=== PATIENT | female | born 1940 | race Caucasian/White ===

== ENCOUNTER 2023-11-09 13:03 | Outpatient (AMB) | payer MEDICARE, MEDICAID, SELFPAY ==
--- NOTE | 2023-11-09 13:21 | A.OFFPC_ITS ---
Vital Signs 11/09/23 13:28 Height 5 ft 1.26 in Weight 138 lb 6 oz BMI 25.9 BP 130/66 Blood Pressure Location Lt brachial Position Sitting Respiration 16 Pulse 74 Pulse Source Palpation Intake Visit Reasons: Establish Care Intake Note: new patient , med refill levothyroxine Is last menstrual period known: No Post menopausal: Yes Patient : No Allergies Penicillins Adverse Reaction (Verified 11/09/23 13:23) Diarrhea Tobacco use date assessed: 11/09/23 Fall risk assessment: No Falls in past year Last assessed Fall Risk: 11/09/23 Dental Screening Dental Screen Date: 11/09/23 Did you have a dental visit in the last 12 months?: Yes Did you have a dental problem in the last 6 months where you did not have access to dental care?: No Was dental information given to patient?: Patient has dentist HPI HPI Comments History of Present Illness Details The patient is an 83 year old female with a past medical history of hypothyroid, anxiety, insomnia presenting to establish care Hypothyroid: stable on levothyroxine Anxiety: On xanax twice daily, olanzapine Reports few month history of muscle spasms, arms, low back and legs. ROS CONSTITUTIONAL: Denies weight loss, fever and chills. HEENT: Denies changes in vision and hearing. RESPIRATORY: Denies SOB and cough. CV: Denies palpitations and CP GI: Denies abdominal pain, nausea, vomiting and diarrhea. : Denies dysuria and urinary frequency. MSK: Denies new myalgia and joint pain. SKIN: Denies rash and pruritus. NEUROLOGICAL: Denies headache PSYCHIATRIC: Denies recent changes in mood. PHYSICAL EXAM: GENERAL: Alert and oriented x 3. NAD EYES: EOMI. Anicteric. HENT: Moist mucous membranes. No scleral icterus. No cervical lymphadenopathy. LUNGS: Clear to auscultation bilaterally. CARDIOVASCULAR: Regular rate and rhythm. No murmur. No JVD. ABDOMEN: Soft, non-tender +bs EXTREMITIES: No edema. Non-tender. SKIN: No rashes or lesions. Warm. NEUROLOGIC: No focal neurological deficits. CN II-XII grossly intact PSYCHIATRIC: Cooperative. Appropriate mood and affect [facility] Social History (Updated 11/09/23 @ 13:25 by Opal Madrid [facility]) Housing: House Patient Tobacco Use Status: Never used Tobacco e-Cigarette/Vaping Use: Never Used Second Hand Smoke Exposure: Yes (daughter) service: No Current occupational status: retired Current occupational exposures/hazards: No Cognitive needs: No Hearing needs: Yes Vision needs: Yes Questionnaire PHQ-9 Over the last 2 weeks, how often have you been bothered by any of the following problems? 1. Little interest or pleasure in doing things: more than half the days 2. Feeling down, depressed, or hopeless: more than half the days 3. Trouble falling or staying asleep, or sleeping too much: more than half the days 4. Feeling tired or having little energy: nearly every day 5. Poor appetite or overeating: not at all 6. Feeling bad about yourself - or that you are a failure or have let yourself or your family down: more than half the days 7. Trouble concentrating on things, such as reading the newspaper or watching television: several days 8. Moving or speaking so slowly that other people could have noticed. Or the opposite - being so fidgety or restless that you have been moving around a lot more than usual: not at all 9. Thoughts that you would be better off or of hurting yourself in some way: not at all Total score: 12 Depression Screening Interpretation: Positive Depression Screening Done: Yes 90579 - PHQ-9 Billing: Yes Source: Developed by Drs. Rajesh Gamble, Fabiola Ramirez, Neville Burnett and colleagues, with an educational jovana from [employer]. Thrive Questionnaire Date Thrive assessed: 11/09/23 I am a: Patient What is your living situation today?: I have a place to live, but I am worried about losing it in the future Within the past 12 months, did the food you bought not last and you didn't have the money to get more?: Never true Within the past 12 months, did you worry whether your food would run out before you got money to buy more?: Never true Do you have trouble paying for medicines?: No Do you have trouble getting transportation to medical appointments?: Yes Do you have trouble paying your heating and electricity bill?: No Do you have trouble taking care of your child, family member or friend?: No Do you have trouble with day-to-day activities such as bathing, preparing meals, shopping, managing finances, etc.?: No Are you currently unemployed and looking for a job?: No Are you interested in more education?: No Please select the resources that you would like help with: None Currently or been in a relationship where the following occur: No concerns reported THRIVE Score: 2 AUDIT C Alcohol Use Questionnaire (AUDIT-C) 1. How often do you have a drink containing alcohol?: Monthly or less 2. How many drinks containing alcohol do you have on a typical day when you are drinking?: 1 or 2 3. How often do you have six or more drinks on one occasion?: Weekly Total Score: 4 Score Reviewed/Action Taken: Yes VANESSA-7 AMB Questionnaire VANESSA-7 Date VANESSA - 7 assessed: 11/09/23 Feeling nervous, anxious, or on edge: 2 = More than half the days Not being able to stop or control worryin = Nearly every day Worrying too much about different things: 3 = Nearly every day Trouble relaxin = More than half the days Being so restless that it is hard to sit still: 2 = More than half the days Becoming easily annoyed or irritable: 1 = Several days Feeling afraid as if something awful might happen: 1 = Several days Total VANESSA-7 score (0-4 normal; 5-9 mild; 10-14 moderate; 15-21 severe): 14 Source: Developed by Drs. Rajesh Gamble, Fabiola Ramirez, Neville Burnett and colleagues, with an educational jovana from [employer]. VANESSA-7 Assessment Billing VANESSA-7 Assessment Tool: VANESSA-7 Assessment 76130 Physical exam (Primary Care) Vital Signs: Last Vital Signs Pulse 74 11/09/23 13:28 Resp 16 11/09/23 13:28 BP 130/66 11/09/23 13:28 BMI result Body Mass Index 25.9 Tobacco/Smoking Status: Tobacco use Status Tobacco use date assessed 11/09/23 11/09/23 13:26 Patient Tobacco Use Status Never used Tobacco 11/09/23 13:26 e-Cigarette/Vaping Use Never Used 11/09/23 13:26 PHQ-9: PHQ-9 Score PHQ-9: Total score 12 11/15/23 21:16 Depression Screening Interpretation: Positive Thrive Assessment: Date of Thrive Assessment Date Thrive assessed 11/09/23 11/09/23 14:27 Currently or been in a relationship where the following occur: No concerns reported Assessment and Plan Assessment & Plan (1) Fatigue: Code(s): R53.83 - Other fatigue Qualifiers: Fatigue type: other Qualified Code(s): R53.83 - Other fatigue (2) Hypothyroid: Code(s): E03.9 - Hypothyroidism, unspecified Qualifiers: 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 past medical, surgical, social history reviewed. Orders: Orders Vitamin B12 and Folate 11/09/23 R53.83 - Other fatigue IRON PROFILE 11/09/23 R53.83 - Other fatigue Magnesium 11/09/23 M79.10 - Myalgia, unspecified site TSH reflex Free T4 11/09/23 R53.83 - Other fatigue Complete Blood Count Auto Diff 11/09/23 R53.83 - Other fatigue Comprehensive Met. 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
[2023-11-09 13:28] VITALS: BP 130/66; PULSE 74; RESP 16; BMI 25.9
== END 2023-11-09 13:56 | disposition home or self-care (01) ==
PROVIDERS: Visit Provider Internal Medicine
DX: R53.83 Other fatigue (principal); E06.3 Autoimmune thyroiditis; F41.9 Anxiety disorder, unspecified; Z76.89 Persons encountering health services in other specified circumstances
CPT/HCPCS: 99204

== ENCOUNTER 2023-11-09 14:01 | Outpatient (REF) | payer MEDICARE, SELFPAY ==
[2023-11-09 18:24] LABS: Alanine Aminotransferase 32 U/L (0-31); Albumin Level 4.6 g/dL (3.5-5.0); Alkaline Phosphatase 93 U/L (39-117); Anion Gap 15 (12-20); Aspartate Amino Transferase 28 U/L (5-31); Bilirubin Total 0.7 mg/dL (0.0-1.0); Blood Urea Nitrogen 13 mg/dL (9-16); Calcium 9.8 mg/dL (8.4-10.2); Carbon Dioxide 25 mmol/L (22-29); Chloride 103 mmol/L (96-108); Estimated Glomerular Filt Rate 59; Glucose Random 90 mg/dL (60-115); Iron 97 mcg/dL (30-160); Magnesium 2.4 mg/dL (1.6-2.6); Percent Iron Saturation 32 % (15-50); Potassium 4.5 mmol/L (3.3-5.1); Sodium 138 mmol/L (135-145); Total Iron Binding Capacity 302 mcg/dL (228-428); Total Protein 8.1 g/dL (6.5-8.0); Unsaturated Iron Binding 205 ug/dL
[2023-11-09 18:37] LABS: TSH reflex Free T4 6.01 uIU/mL (0.32-4.0)
[2023-11-09 19:44] LABS: Free T4 (Free Thyroxine) 0.92 ng/dL (0.71-1.85)
[2023-11-09 20:26] LABS: Folate 12.6 ng/mL (> or = 4.0); Vitamin B12 > 2000 pg/mL (200-900)
== END 2023-11-09 14:02 | disposition home or self-care (01) ==
LOC: HO.WFDLDS 14:01
PROVIDERS: Visit Provider Internal Medicine
DX: R53.83 Other fatigue (principal); M79.10 Myalgia, unspecified site
CPT/HCPCS: 36415; 80053; 82607; 82746; 83540; 83735; 84439; 84443

== ENCOUNTER 2024-02-02 15:43 | Outpatient (AMB) | payer MEDICARE, MEDICAID, SELFPAY ==
--- NOTE | 2024-02-02 15:21 | MHC.PC.OV ---
Vital Signs 02/02/24 15:54 Height 5 ft 1.26 in Weight 137 lb 2 oz BMI 25.7 BP 108/64 Blood Pressure Location Lt brachial Pulse 75 Pulse Source Pulse Oximeter Pulse Oximetry (%) 98 Oxygen Delivery Method Room Air Intake Visit Reasons: Establish Care Intake Note: Physical Aviation Consultant Required: No Allergies Penicillins Adverse Reaction (Verified 02/02/24 15:24) Diarrhea Tobacco use date assessed: 11/09/23 Dental Screening Dental Screen Date: 11/09/23 HPI HPI Comments History of Present Illness Details The patient is an 83 year old female with a past medical history of hypothyroid, anxiety, insomnia presenting for AWV Care team reviewed PMSHx reviewed Medications reconciled Memory: 06/13 recall. Depression screen negative HRA reviewed. No problems identified. Independent ADLS Hypothyroid: stable on levothyroxine Anxiety: On xanax twice daily, olanzapine. Following with Reports few month history of muscle spasms, arms, low back and legs. Frequent neck, shoulder pain ROS see HPI PHYSICAL EXAM: GENERAL: Alert and oriented x 3. NAD EYES: EOMI. Anicteric. HENT: Moist mucous membranes. No scleral icterus. No cervical lymphadenopathy. LUNGS: Clear to auscultation bilaterally. CARDIOVASCULAR: Regular rate and rhythm. No murmur. No JVD. ABDOMEN: Soft, non-tender +bs EXTREMITIES: No edema. Non-tender. SKIN: No rashes or lesions. Warm. NEUROLOGIC: No focal neurological deficits. CN II-XII grossly intact PSYCHIATRIC: Cooperative. Appropriate mood and affect [facility] Medical History Shingles Depression Imbalance Incontinence Thyroid disease Sinusitis Family History Mother Thyroid disorder Social History Housing: House Patient Tobacco Use Status: Never used Tobacco e-Cigarette/Vaping Use: Never Used Second Hand Smoke Exposure: Yes (daughter) service: No Current occupational status: retired Current occupational exposures/hazards: No Cognitive needs: No Hearing needs: Yes Vision needs: Yes Questionnaire Thrive Questionnaire Date Thrive assessed: 11/09/23 VANESSA-7 AMB Questionnaire VANESSA-7 Date VANESSA - 7 assessed: 11/09/23 Source: Developed by Drs. Rajesh Gamble, Fabiola Ramirez, Neville Burnett and colleagues, with an educational jovana from [employer]. Physical exam (Primary Care) Vital Signs: Last Vital Signs Pulse 75 02/02/24 15:54 BP 108/64 02/02/24 15:54 Pulse Ox 98 02/02/24 15:54 Oxygen Delivery Method Room Air 02/02/24 15:54 BMI result Body Mass Index 25.7 Tobacco/Smoking Status: Tobacco use Status Tobacco use date assessed 11/09/23 02/02/24 15:23 Patient Tobacco Use Status Never used Tobacco 02/02/24 15:23 e-Cigarette/Vaping Use Never Used 02/02/24 15:23 Thrive Assessment: Date of Thrive Assessment Date Thrive assessed 11/09/23 02/02/24 15:23 Coding Level of Care Code Est Pt Level 4 (11265) Diagnoses Polyarthralgia M25.50 Polymyalgia M35.3 Other fatigue R53.83 Fatigue type: other Encounter for subsequent annual wellness visit (AWV) in Medicare patient Z00.00 Assessment & Plan Assessment & Plan (1) Polyarthralgia: Code(s): M25.50 - Pain in unspecified joint Category: Medical Plan: referral to rheumatology (2) Polymyalgia: Code(s): M35.3 - Polymyalgia rheumatica Category: Medical Plan: see above. Trial baclofen prn (3) Fatigue: Code(s): R53.83 - Other fatigue Category: Medical Qualifiers: Fatigue type: other Qualified Code(s): R53.83 - Other fatigue Plan: Labs ordered (4) Encounter for subsequent annual wellness visit (AWV) in Medicare patient: Code(s): Z00.00 - Encounter for general adult medical examination without abnormal findings Category: Medical Plan: see HPI Orders: Orders TSH reflex Free T4 12 Weeks E06.3 - Autoimmune thyroiditis Prothrombin Time INR 02/02/24 D69.2 - Other nonthrombocytopenic purpura Partial Thromboplastin Time 02/02/24 D69.2 - Other nonthrombocytopenic purpura IRON PROFILE 02/02/24 R53.83 - Other fatigue Complete Blood Count Auto Diff 02/02/24 D69.2 - Other nonthrombocytopenic purpura Referrals Rheumatology Referral M25.50 - Pain in unspecified joint, M35.3 - Polymyalgia rheumatica Medications: New levothyroxine 100 mcg PO DAILY 90 tabs 3RF Discontinued levothyroxine Discontinued Reason: Doctor's Order 88 mcg PO DAILY 90 tabs 3RF
[2024-02-02 15:54] VITALS: BP 108/64; PULSE 75; O2SAT 98; BMI 25.7
== END 2024-02-02 16:40 | disposition home or self-care (01) ==
PROVIDERS: Visit Provider Internal Medicine
DX: M25.50 Pain in unspecified joint (principal); M35.3 Polymyalgia rheumatica; R53.83 Other fatigue; Z00.00 Encounter for general adult medical examination without abnormal findings

== ENCOUNTER → 2024-02-02 15:43 | Outpatient (BNVA) | payer MEDICARE, MEDICAID, SELFPAY | PROVIDERS: Visit Provider Internal Medicine | DX: Z00.00 Encounter for general adult medical examination without abnormal findings (principal); M25.50 Pain in unspecified joint; M35.3 Polymyalgia rheumatica; R53.83 Other fatigue; E03.9 Hypothyroidism, unspecified; F41.9 Anxiety disorder, unspecified; D69.2 Other nonthrombocytopenic purpura; Z79.899 Other long term (current) drug therapy | CPT/HCPCS: 99212 ==

== ENCOUNTER 2024-05-22 10:25 | Emergency (ER) | payer MEDICARE, MEDICAID, SELFPAY ==
--- NOTE | ~2024-05-22 | CT_ITS ---
CLINICAL HISTORY: upper abdominal pain CT abdomen and pelvis with contrast Comparison: None Findings: No consolidation at the lung bases. Unremarkable gallbladder and bladder. Left renal cyst. Bilateral renal subcentimeter low attenuating lesions which are too small to characterize. 1.4 cm calcification in the left adnexa could be within the left ovary. The other solid organs are unremarkable. No bowel wall thickening or dilation. A normal appendix is identified. Colonic diverticulosis. No aneurysm. Severe calcified atherosclerotic disease. No lymphadenopathy. No ascites. No acute osseous abnormality. Severe degenerative change of the hips. Right hip osteonecrosis with mild cortical collapse could be considered. Impression: No acute findings. This document has been electronically signed by: Vianey Fonseca MD on 05/22/2024 17:27:24
[2024-05-22 10:28] VITALS: BP 149/80; PULSE 92; RESP 18; TEMP 36.4; O2SAT 99; BMI 24.2
[2024-05-22 11:23] LABS: MANUAL DIFF FLAG NO
[2024-05-22 11:28] LABS: Basophils Percent Auto 0.4 % (0-2); Eosinophils Percent Auto 0.3 % (0-4); Hematocrit 42.1 % (37.0-47.0); Hemoglobin 14.3 g/dl (12.0-16.0); Imm Gran Abs Auto 0.01 X10*3/uL (0.00-0.03); Imm Gran Pct Auto 0.1 % (0.0-0.4); Lymphocytes Absolute Auto 1.6 X10*3/uL (1.2-4.9); Lymphocytes Percent Auto 23.7 % (20-40); Mean Corpuscular Hemoglobin 31.4 pg (27.0-33.0); Mean Corpuscular Volume 92.3 fL (80.0-98.0); Mean Platelet Volume 10.1 fL (9.4-12.3); Monocytes Absolute Auto 0.7 X10*3/uL (0.1-1.2); Monocytes Percent Auto 11.1 % (2-11); Neutrophils Absolute Auto 4.3 x10*3/uL (2.0-8.3); Neutrophils Percent Auto 64.4 % (45-73); Platelet Count 330 X10*3/uL (160-400); Red Blood Count 4.56 X10*6/uL (4.20-5.50); Red Cell Distribution Width 13.8 % (11.0-16.0); White Blood Count 6.7 X10*3/uL (4.8-10.8)
[2024-05-22 11:40] LABS: Alanine Aminotransferase 21 U/L (0-31); Albumin Level 4.4 g/dL (3.5-5.0); Alkaline Phosphatase 72 U/L (39-117); Anion Gap 14 (12-20); Aspartate Amino Transferase 23 U/L (5-31); Bilirubin Total 0.8 mg/dL (0.0-1.0); Blood Urea Nitrogen 10 mg/dL (9-16); Calcium 9.5 mg/dL (8.4-10.2); Carbon Dioxide 21 mmol/L (22-29); Chloride 104 mmol/L (96-108); Creatinine Clr Calc Pharmacy 41.3; Estimated Glomerular Filt Rate > 60; Glucose Random 104 mg/dL (60-115); Magnesium 2.1 mg/dL (1.6-2.6); Potassium 4.3 mmol/L (3.3-5.1); Sodium 135 mmol/L (135-145); Total Protein 7.9 g/dL (6.5-8.0)
--- NOTE | 2024-05-22 11:47 | ED.ABDPAIN ---
HPI - Abdominal Pain General Chief Complaint: Abdominal Pain Stated Complaint: abdominal pain Time Seen by Provider: 05/22/24 11:30 Source: patient Mode of arrival: ambulatory Limitations: no limitations History of Present Illness HPI narrative: This is 84 years old patient presented to the emergency department with a chief complaint of epigastric abdominal pain for about 3 or 4 weeks. She reports poor p.o. intake no vomiting or diarrhea. She has a history of gastritis, no prior abdominal surgery MD elicited complaint: abdominal pain Pertinent past history: gastritis Onset (ago): week(s) (4) Pain Consistency: constant Location: epigastric Severity: mild Quality: cramping Radiation: epigastric Migration to: no migration Exacerbating factors: nothing Relieving factors: nothing Related Data Home Medications ?Medication ?Instructions ?Recorded ?Confirmed olanzapine 2.5 mg tablet 2.5 mg PO DAILY 02/02/24 Previous Rx's ?Medication ?Instructions ?Recorded baclofen 5 mg tablet 5 mg PO BID 90 days #180 tabs 11/09/23 olanzapine 5 mg tablet 5 mg PO BEDTIME 90 days #90 tabs 11/09/23 alprazolam 0.5 mg tablet 0.5 mg PO TID 30 days #90 tabs 01/05/24 levothyroxine 75 mcg tablet 75 mcg PO DAILY #90 tabs 05/06/24 omeprazole 10 mg capsule,delayed 10 mg PO DAILY #30 caps 05/22/24 release Allergies Allergy/AdvReac Type Severity Reaction Status Date / Time Penicillins AdvReac Diarrhea Verified 05/22/24 10:34 Review of Systems Constitutional: Reports no additional constitutional complaints Reports system reviewed and no additional complaints, except as documented Musculoskeletal: Reports no additional musculoskeletal complaints [facility] Past Medical History Attestation statement: The following information was validated with the patient. [facility] Narrative: Gastritis/anxiety Medical History Shingles Depression Imbalance Incontinence Thyroid disease Sinusitis Family History Family History Mother Thyroid disorder Social History Social History Housing: House Patient Tobacco Use Status: Never used Tobacco e-Cigarette/Vaping Use: Never Used Second Hand Smoke Exposure: Yes (daughter) service: No Current occupational status: retired Current occupational exposures/hazards: No Cognitive needs: No Hearing needs: Yes Vision needs: Yes Physical Exam ED Vital Signs: Vital Signs - 24 hr 05/22/24 10:28 05/22/24 15:18 05/22/24 17:55 Temperature 97.6 F 97.6 F 97.6 F Pulse Rate 92 77 77 Respiratory Rate 18 16 16 Blood Pressure 149/80 H 137/72 137/72 Pulse Oximetry 99 97 97 Oxygen Delivery Method Room Air Room Air Room Air BMI result Body Mass Index 24.2 No acute distress Const General: cooperative, healthy appearing, comfortable and no acute distress Nutritional Appearance: average body habitus Orientation/consciousness: patient oriented x3 Limitations: no limitations HENMT Head: Yes normal to inspection Face and sinus: Yes normal facial exam Neck Neck: Yes normal visual inspection and Yes full ROM Chest Chest palpation & inspection: normal inspection of the chest Resp Effort & Inspection: normal respiratory effort Cardio Jugular venous distension: no JVD Rate: regular rate Rhythm: regular rhythm GI Inspection: Yes normal to inspection Palpation (GI): Soft to palpation General: Yes no CVA tenderness Back/Spine/Pelvis Back: no CVA tenderness Skin General skin exam: no rashes or lesions noted, elasticity normal and turgor normal Lesions: no lesions Rashes: no rashes Trauma: no lacerations or abrasions Wounds: no wounds Neuro General: patient oriented x3 Course Reevaluation(s) Reevaluation #1: Remained stable at this time we still waiting for the report the CT scan of the abdomen and pelvis, I just spoke with the light rail signal technician to alert the radiologist for the delayed on the CT report Time: 16:38 Reevaluation #2: CT resulted not acute disease anticipate discharge Time: 17:44 Medical Decision Making Medical Decision Making [facility] Narrative: Patient presented with upper abdominal pain for about 4 weeks no vomiting we will obtain labs Differential Diagnosis Differential Diagnoses: The differential diagnosis associated with the presentation includes Gastritis/pancreatitis she had/biliary colic Lab Data 05/22/24 11:20 05/22/24 11:20 Labs: Lab Results 05/22/24 05/22/24 Range/Units 11:20 16:43 WBC 6.7 (4.8-10.8) X10*3/uL RBC 4.56 (4.20-5.50) X10*6/uL Hgb 14.3 (12.0-16.0) g/dl Hct 42.1 (37.0-47.0) % MCV 92.3 (80.0-98.0) fL MCH 31.4 (27.0-33.0) pg MCHC 34.0 (31.0-35.0) g/dl RDW 13.8 (11.0-16.0) % Plt Count 330 (160-400) X10*3/uL MPV 10.1 (9.4-12.3) fL Immature Gran % (Auto) 0.1 (0.0-0.4) % Neut % (Auto) 64.4 (45-73) % Lymph % (Auto) 23.7 (20-40) % Norman % (Auto) 11.1 H (2-11) % Eos % (Auto) 0.3 (0-4) % Baso % (Auto) 0.4 (0-2) % Lymph # (Auto) 1.6 (1.2-4.9) X10*3/uL Norman # (Auto) 0.7 (0.1-1.2) X10*3/uL Eos # (Auto) 0.0 (0.0-0.4) X10*3/uL Baso # (Auto) 0.0 (0.0-0.2) X10*3/uL Abs Immat Gran (auto) 0.01 (0.00-0.03) X10*3/uL Absolute Neuts (auto) 4.3 (2.0-8.3) x10*3/uL Absolute Nucleated RBC 0.000 (0.0-0.012) X10*3/uL Nucleated RBC % (auto) 0.0 (0.0-0.2) /100WBC Sodium 135 (135-145) mmol/L Potassium 4.3 (3.3-5.1) mmol/L Chloride 104 (96-108) mmol/L Carbon Dioxide 21 L (22-29) mmol/L Anion Gap 14 (12-20) BUN 10 (9-16) mg/dL Creatinine 0.86 (0.5-1.4) mg/dL Estim Creat Clear Calc 41.3 Estimated GFR > 60 Random Glucose 104 (60-115) mg/dL Calcium 9.5 (8.4-10.2) mg/dL Magnesium 2.1 (1.6-2.6) mg/dL Total Bilirubin 0.8 (0.0-1.0) mg/dL AST 23 (5-31) U/L ALT 21 (0-31) U/L Alkaline Phosphatase 72 (39-117) U/L Total Protein 7.9 (6.5-8.0) g/dL Albumin 4.4 (3.5-5.0) g/dL Lipase 21 (8-78) U/L Urine Color Yellow Urine Appearance Clear Urine pH 6.0 (5.0-9.0) Ur Specific Doyle >= 1.030 H (1.005-1.025) Urine Protein Negative (Neg-Trace) mg/dL Urine Glucose (UA) Negative (Negative) mg/dL Urine Ketones Negative (Negative) mg/dL Urine Blood Negative (Negative) Urine Nitrite Negative (Negative) Ur Leukocyte Esterase Negative (Negative) Influenza Type A (PCR) NEGATIVE (Negative) Influenza Type B (PCR) NEGATIVE (Negative) RSV RNA Qual (PCR) NEGATIVE (Negative) SARS-CoV-2 RNA (RT-PCR) NEGATIVE (Negative) Medications Administered Discontinued Medications Generic Name Dose Route Start Last Admin Trade Name Freq PRN Reason Stop Dose Admin Alprazolam 0.5 mg 05/22/24 11:46 05/22/24 12:27 Alprazolam 0.5 Mg Tablet PO 05/22/24 11:47 0.5 mg ONCE ONE Administration Sodium Chloride 1,000 mls @ 999 mls/hr 05/22/24 12:00 05/22/24 13:46 Ns IVCONT 05/22/24 13:00 Infused .Q1H1M BECCA Infusion Acetaminophen 1,000 mg in 100 mls @ 400 mls/hr 05/22/24 16:37 05/22/24 16:58 Ofirmev IV 05/22/24 16:51 Infused ONCE ONE Infusion Iohexol 85 ml 05/22/24 13:08 05/22/24 13:08 Iohexol 350 Mg/Ml 100 Ml Infus..Btl IV 05/22/24 13:09 85 ml ONCE ONE Administration Morphine Sulfate 4 mg 05/22/24 14:43 05/22/24 15:24 Morphine Sulfate 4 Mg/Ml Cartridge IVPUSH 05/22/24 14:44 Not Given ONCE ONE Protocol Ondansetron HCl 4 mg 05/22/24 14:42 05/22/24 15:02 Ondansetron Hcl 4 Mg/2 Ml Vial IVPUSH 05/22/24 14:43 4 mg ONCE ONE Administration Pantoprazole Sodium 40 mg 05/22/24 11:47 05/22/24 12:27 Pantoprazole Sodium 40 Mg/10 Ml Vial IVPUSH 05/22/24 11:48 40 mg ONCE ONE Administration Discharge Plan Discharge Clinical Impression: Acute upper abdominal pain Patient Disposition: Home, Self-Care Instructions: Abdominal Pain (ED) Additional Instructions: Follow-up with your primary care physician stable liquid diet today return if worse your CT scan was normal your blood work were unremarkable no life-threatening problem identified Prescriptions: New omeprazole 10 mg capsule,delayed release(DR/EC) 10 mg PO DAILY Qty: 30 0RF No Action alprazolam 0.5 mg tablet 0.5 mg PO TID 30 Days Qty: 90 0RF levothyroxine 75 mcg tablet 75 mcg PO DAILY Qty: 90 3RF olanzapine 5 mg tablet 5 mg PO BEDTIME 90 Days Qty: 90 3RF baclofen 5 mg tablet 5 mg PO BID 90 Days Qty: 180 3RF olanzapine 2.5 mg tablet 2.5 mg PO DAILY Referrals: Kaylyn Guillory MD [Primary Care Provider] - Interventions: ED Discharge Assessment Last Done: 05/22/24 17:55 Discharge Date/Time: 05/22/24 18:10 Print Language: Azerbaijani
[2024-05-22 12:04] LABS: Influenza A PCR NEGATIVE (Negative); Influenza B PCR NEGATIVE (Negative); Resp Syncy Virus RNA Qual PCR NEGATIVE (Negative); SARS COV2 PCR INHOUSE NEGATIVE (Negative)
[2024-05-22 12:07] LABS: Lipase 21 U/L (8-78)
[2024-05-22] MEDS: Pantoprazole Sodium 40 MG/10 ML VIAL IVPUSH (12:27)
[2024-05-22] MEDS: ALPRAZolam 0.5 MG TABLET PO (12:27)
[2024-05-22] MEDS: 0.9 % Sodium Chloride 1,000 ML 999 ML IVCONT (12:29)
[2024-05-22] MEDS: iohexoL 350 MG/ML 100 ML INFUS..BTL 85 ML IV (13:08)
[2024-05-22] MEDS: ondansetron HCL 4 MG/2 ML VIAL IVPUSH (15:02)
[2024-05-22 15:18] VITALS: BP 137/72; PULSE 77; RESP 16; TEMP 36.4; O2SAT 97
[2024-05-22] MEDS: Acetaminophen 1,000 MG/100 ML PIGGYBACK 400 MG IV (16:43)
[2024-05-22 16:48] LABS: Appearance Urine Clear; Color Urine Yellow; Glucose Urine UA Negative (Negative); Leukocyte Esterase Urine Negative (Negative); Nitrite Urine Negative (Negative); Specific Gravity - Urine >= 1.030 (1.005-1.025); Urine Blood Negative (Negative); Urine Ketones Negative (Negative); Urine Protein Negative (Neg-Trace)
[2024-05-22 17:55] VITALS: BP 137/72; PULSE 77; RESP 16; TEMP 36.4; O2SAT 97
== END 2024-05-22 18:10 | disposition home or self-care (01) ==
PROVIDERS: Physician Assistant Medical; Emergency Provider Emergency Medicine; PCP Internal Medicine
DX: R10.13 Epigastric pain (principal); R10.2 Pelvic and perineal pain; R11.0 Nausea; Z03.818 Encounter for observation for suspected exposure to other biological agents ruled out; Z79.899 Other long term (current) drug therapy
CPT/HCPCS: 0241U; 74177; 80053; 81003; 83690; 83735; 85025; 96361; 96374; 96375; 99284; J0131; J2405; J2470; Q9967

== ENCOUNTER → 2024-05-22 11:46 | Outpatient (BNV) | payer MEDICARE, MEDICAID, SELFPAY | PROVIDERS: Emergency Provider Emergency Medicine; PCP Internal Medicine; Visit Provider Radiology Diagnostic Radiology | DX: R10.10 Upper abdominal pain, unspecified (principal) | CPT/HCPCS: 74177 ==

== ENCOUNTER 2024-05-25 10:50 | Outpatient (AMB) | payer MEDICARE, MEDICAID, SELFPAY ==
--- NOTE | 2024-05-25 11:00 | A.OFFPC_ITS ---
Vital Signs 05/25/24 11:03 Height 5 ft 1 in Weight 129 lb BMI 24.4 BP 108/66 Blood Pressure Location Rt brachial Position Sitting Respiration 16 Pulse 76 Pulse Source Pulse Oximeter Pulse Oximetry (%) 96 Oxygen Delivery Method Room Air Intake Visit Reasons: Dizziness Intake Note: Dizziness, ongoing for a couple month, getting worse Hair And Makeup Designer Required: No Allergies Penicillins Adverse Reaction (Verified 05/22/24 10:34) Diarrhea Medication List - Last Reconciled 05/25/24 by Ginna Sherman PA-C alprazolam 0.5 mg PO TID 30 days levothyroxine 75 mcg PO DAILY meclizine 25 mg PO BID PRN omeprazole 10 mg PO DAILY ondansetron HCl 4 mg PO Q8H PRN Tobacco use date assessed: 11/09/23 Dental Screening Dental Screen Date: 11/09/23 HPI Dizziness HPI Details History of Present Illness The patient is an 84-year-old female presenting with dizziness and nausea. She describes experiencing persistent dizziness for over a month, which has gradually worsened. She attributes her symptoms to a device in her ear that has become loose, causing the dizziness. She states that this dizziness however, feels a little different. This device was placed by an ear, nose, and throat (ENT) specialist a few years ago. The ENT advised that surgical intervention was not possible due to the risk of inducing permanent vertigo. The patient notes that this dizziness is characterized by lightheadedness and is exacerbated by standing up quickly or walking, leading her to lay down frequently to mitigate symptoms. She states that she is very lightheaded and feels like she is going to faint when she is exerting herself. She also feels very nauseous with the exertion. Has lost 6 lbs with this over the last month. She denies any sinus pain or pressure, ear pain, fever, chills, sweats, sore throat, swollen lymph nodes, chest pain, palpitations, sob, cough, wheezing, abdominal pain. No leg swelling, numbness, tingling, headaches, vision changes. No urinary sx. She does endorse hard stools but has not been using her colace. No diarrhea. Appetite is decreased due to nausea and dizziness. She is tearful today because she feels very faint at times and nauseous. She states that she does not feel well and like her body is breaking down. She is very vague. Granddaughter is with her today and her memory appears intact. In the past month, the patient also reports experiencing increased anxiety, which she feels is uncontrollable. The patient's psychiatrist was previously managing her anxiety with olanzapine, but she discontinued this medication after receiving a recall notice over a month ago. Following discontinuation, the patient has relied on Xanax (alprazolam) alone for anxiety management, although symptoms remain concerning. Additionally, the patient suffers from hypothyroidism and is on levothyroxine for management. However, recent thyroid function tests indicated an overactive thyroid, necessitating monitoring for potential contribution to her dizziness and anxiety. She did have her dosage decreased. Health Maintenance - Monitor thyroid function to ensure sta bility given recent reported overactivit y - Encourage fluid intake to prevent pote ntial orthostatic hypotension - Emphasize the importance of gradual po sitional changes to reduce dizziness Social History - Lives with her daughter and granddaugh ter - Dependent on family for daily activiti es due to current health condition Review of Systems - Constitutional: Reports weight loss of 10 pounds. - Gastrointestinal: Reports reduced appe tite, persistent nausea, and constipation. - Neurological: Reports lightheadedness and near-constant dizziness, worsened by movement. Denies headaches or vision changes. - Psychiatric: Reports increased anxiety over the past month. - Cardiovascular: Denies chest pain, pal pitations, or syncope. - Pulmonary: Denies shortness of breath or cough. Physical Exam General: Well developed, well nourished, appears stated age, in no acute distress but reports feeling dizzy and nauseous. Cardiac: RRR, no murmurs. No carotid bruit noted. Lungs: clear, equal breath sounds Abdomen: soft, nontender, no CVA tenderness Extremities: no edema Neuro: alert, oriented x3, mood appropriate, reports general weakness and lightheadedness, no focal deficits. CN 2-12 grossly intact. Gait normal. Strength is symmetrical. Plan - Proceed with ordering a head CT scan t o rule out intracranial pathology contributing to dizziness. - Conduct an ultrasound of the neck to a ssess carotid artery status for potent ial stenosis. - Arrange for a Holter monitor to evalua te cardiac rhythm disturbances that could relate to dizziness. - Monitor thyroid function with repeat l aboratory testing to assess the efficacy of current levothyroxine dosage. - Prescribe Meclizine to mitigate dizzin ess-related nausea. - Prescribe Zofran ondansetron) for naus ea management, while advising use to minimize constipation. - Encourage contact with psychiatric ser vices to discuss potential adjustments to anxiety management and possible alternative therapies to olanzapine. - Initiate discussions on lifestyle yadira fications to support gastrointestinal health, including a high-fiber diet and adequate hydration. - Schedule follow-up with primary care f or further evaluation and management adjustments as necessary. [facility] Medical History Shingles Depression Imbalance Incontinence Thyroid disease Sinusitis Family History Mother Thyroid disorder Social History Housing: House Patient Tobacco Use Status: Never used Tobacco e-Cigarette/Vaping Use: Never Used Second Hand Smoke Exposure: Yes (daughter) service: No Current occupational status: retired Current occupational exposures/hazards: No Cognitive needs: No Hearing needs: Yes Vision needs: Yes Questionnaire PHQ-9 Over the last 2 weeks, how often have you been bothered by any of the following problems? 1. Little interest or pleasure in doing things: nearly every day 2. Feeling down, depressed, or hopeless: nearly every day 3. Trouble falling or staying asleep, or sleeping too much: nearly every day 4. Feeling tired or having little energy: nearly every day 5. Poor appetite or overeating: nearly every day 6. Feeling bad about yourself - or that you are a failure or have let yourself or your family down: nearly every day 7. Trouble concentrating on things, such as reading the newspaper or watching television: nearly every day 8. Moving or speaking so slowly that other people could have noticed. Or the opposite - being so fidgety or restless that you have been moving around a lot more than usual: more than half the days 9. Thoughts that you would be better off or of hurting yourself in some way: more than half the days Total score: 25 Depression Screening Interpretation: Positive Depression Screening Follow-up: Existing condition, In treatment and Community Mental Health Worker F/U Depression Screening Done: Yes 33294 - PHQ-9 Billing: Yes Source: Developed by Drs. Rajesh Gamble, Fabiola Ramirez, Neville Burnett and colleagues, with an educational jovana from [employer]. Thrive Questionnaire Date Thrive assessed: 05/17/24 I am a: Patient What is your living situation today?: I have a place to live, but I am worried about losing it in the future Within the past 12 months, did the food you bought not last and you didn't have the money to get more?: Never true Within the past 12 months, did you worry whether your food would run out before you got money to buy more?: Never true Do you have trouble paying for medicines?: No Do you have trouble getting transportation to medical appointments?: Yes Do you have trouble paying your heating and electricity bill?: No Do you have trouble taking care of your child, family member or friend?: Yes Do you have trouble with day-to-day activities such as bathing, preparing meals, shopping, managing finances, etc.?: Yes Are you currently unemployed and looking for a job?: No Are you interested in more education?: No Please select the resources that you would like help with: Transportation Currently or been in a relationship where the following occur: No concerns reported THRIVE Score: 2 VANESSA-7 AMB Questionnaire VANESSA-7 Date VANESSA - 7 assessed: 11/09/23 Source: Developed by Drs. Rajesh Gamble, Fabiola Ramirez, Neville Burnett and colleagues, with an educational jovana from [employer]. Physical exam (Primary Care) Vital Signs: Last Vital Signs Pulse 76 05/25/24 11:03 Resp 16 05/25/24 11:03 BP 108/66 05/25/24 11:03 Pulse Ox 96 05/25/24 11:03 Oxygen Delivery Method Room Air 05/25/24 11:03 BMI result Body Mass Index 24.4 Tobacco/Smoking Status: Tobacco use Status Tobacco use date assessed 11/09/23 05/25/24 11:08 Patient Tobacco Use Status Never used Tobacco 05/25/24 11:08 e-Cigarette/Vaping Use Never Used 05/25/24 11:08 PHQ-9: PHQ-9 Score PHQ-9: Total score 05/25/24 11:08 Depression Screening Interpretation: Positive Depression Screening Follow-up: Existing condition, In treatment and Community Mental Health Worker F/U Thrive Assessment: Date of Thrive Assessment Date Thrive assessed 05/17/24 05/25/24 11:08 Currently or been in a relationship where the following occur: No concerns reported Office Procedures EKG Details: EKG nsr at a rate of 66 bmp. no prior study to compare [id number], Complete Coding Level of Care Code Est Pt Level 4 (33266) Complex EM visit Add On G2211 Diagnoses Dizziness R42 Generalized weakness R53.1 CPT Codes EKG - CPT: 25657-[id number], Complete ([id number]) Additional Codes PHQ-9 - 57607 - PHQ-9 Billing: Yes ([id number]) Assessment & Plan Assessment & Plan (1) Dizziness: Code(s): R42 - Dizziness and giddiness Category: Medical Plan: Patient does appear grossly neurologically intact today. Head CT ordered. Cardiac workup ordered. Labs ordered. We will follow up pending test results. I will trial her on meclizine to use if needed along with Zofran. Short term follow up in 1-2 weeks with PCP. Sooner if needed. We will follow up pending test results. Advised patient that if she gets worse she needs to follow with the ER immediately. Patient and granddaughter understand and agree with this. (2) Generalized weakness: Code(s): R53.1 - Weakness Category: Medical Plan . Orders: Orders AMB EKG-In Office Today R42 - Dizziness and giddiness, R53.1 - Weakness CA stress test Today E06.3 - Autoimmune thyroiditis, R42 - Dizziness and giddiness, R53.1 - Weakness, R55 - Syncope and collapse Comprehensive Met. Panel Today E06.3 - Autoimmune thyroiditis, R42 - Dizziness and giddiness, R53.1 - Weakness Vitamin B12 and Folate Today E06.3 - Autoimmune thyroiditis, R42 - Dizziness and giddiness, R53.1 - Weakness TSH reflex Free T4 Today E06.3 - Autoimmune thyroiditis, R42 - Dizziness and giddiness, R53.1 - Weakness UA CC w/rflx Micro + Cult Today E06.3 - Autoimmune thyroiditis, R42 - Dizziness and giddiness, R53.1 - Weakness, Z13.220 - Encounter for screening for lipoid disorders CT head/brain wo IV con Today R42 - Dizziness and giddiness, R53.1 - Weakness US carotid duplex BI Today E06.3 - Autoimmune thyroiditis, R00.2 - Palpitations, R42 - Dizziness and giddiness, R53.1 - Weakness ECG holter monitor 24 hour Today E06.3 - Autoimmune thyroiditis, R42 - Dizziness and giddiness, R53.1 - Weakness CA echo transthoracic complete Today E06.3 - Autoimmune thyroiditis, R42 - Dizziness and giddiness, R53.1 - Weakness NM cardiolite stress test Today R07.9 - Chest pain, unspecified Medications: New meclizine 25 mg PO BID PRN 60 tabs 0RF dizziness ondansetron HCl 4 mg PO Q8H PRN 30 tabs 0RF nausea and vomiting
[2024-05-25 11:03] VITALS: BP 108/66; PULSE 76; RESP 16; O2SAT 96; BMI 24.4
== END 2024-05-25 11:57 | disposition home or self-care (01) ==
PROVIDERS: PCP Internal Medicine; Visit Provider Physician Assistant
DX: R42 Dizziness and giddiness (principal); R53.1 Weakness

== ENCOUNTER 2024-05-25 12:37 | Outpatient (REF) | payer MEDICARE, MEDICAID, SELFPAY ==
[2024-05-25 14:57] LABS: Alanine Aminotransferase 24 U/L (0-31); Albumin Level 4.5 g/dL (3.5-5.0); Alkaline Phosphatase 73 U/L (39-117); Anion Gap 13 (12-20); Aspartate Amino Transferase 26 U/L (5-31); Blood Urea Nitrogen 10 mg/dL (9-16); Calcium 9.4 mg/dL (8.4-10.2); Carbon Dioxide 26 mmol/L (22-29); Chloride 101 mmol/L (96-108); Estimated Glomerular Filt Rate 60; Glucose Random 94 mg/dL (60-115); Potassium 4.6 mmol/L (3.3-5.1); Sodium 135 mmol/L (135-145); Total Protein 8.1 g/dL (6.5-8.0)
[2024-05-25 15:18] LABS: Folate 14.4 ng/mL (> or = 4.0); Vitamin B12 1549 pg/mL (200-900)
[2024-05-25 15:19] LABS: Bilirubin Total 0.9 mg/dL (0.0-1.0); TSH reflex Free T4 1.97 uIU/mL (0.32-4.0)
== END 2024-05-25 12:38 | disposition home or self-care (01) ==
LOC: HO.WFDLDS 12:37
PROVIDERS: Visit Provider Physician Assistant
DX: R42 Dizziness and giddiness (principal); R53.1 Weakness; E06.3 Autoimmune thyroiditis
CPT/HCPCS: 36415; 80053; 82607; 82746; 84443; 93005; 96127; 99212

== ENCOUNTER 2024-05-31 14:57 | Outpatient (BNV) | payer MEDICARE, MEDICAID, SELFPAY | END 2024-06-01 00:30 | PROVIDERS: Admitting Provider Psychiatry & Neurology Psychiatry; Visit Provider Radiology Neuroradiology | DX: H81.393 Other peripheral vertigo, bilateral (principal); R45.851 Suicidal ideations; F41.9 Anxiety disorder, unspecified; M25.521 Pain in right elbow; M19.031 Primary osteoarthritis, right wrist; W19.XXXA Unspecified fall, initial encounter | CPT/HCPCS: 70450; 73070; 73090 ==

== ENCOUNTER 2024-05-31 14:57 | Outpatient (BNV) | payer MEDICARE, SELFPAY | END 2024-06-07 14:36 | PROVIDERS: Admitting Provider Psychiatry & Neurology Psychiatry; Visit Provider Internal Medicine Cardiovascular Disease | DX: R00.2 Palpitations (principal); R94.31 Abnormal electrocardiogram [ECG] [EKG] | CPT/HCPCS: 93010 ==

== ENCOUNTER 2024-05-31 14:57 | Inpatient (IN) | payer MEDICARE, OTHER, SELFPAY ==
--- NOTE | ~2024-05-31 | CT_ITS ---
CLINICAL HISTORY: fall CT head without contrast Comparison: None Findings: No acute intracranial hemorrhage. No midline shift or hydrocephalus. Mild volume loss is generalized. Mild white matter lesions likely small-vessel ischemic disease. No large arterial territorial infarction by CT. Vascular calcifications noted. Imaged paranasal sinuses and imaged mastoid air cells are well aerated. No acute skull fracture. Scalp calcifications are nonspecific. IMPRESSION: No acute intracranial abnormality by CT. This document has been electronically signed by: Nicola Almendarez MD on 06/01/2024 01:41:24
--- NOTE | ~2024-05-31 | XR_ITS ---
CLINICAL HISTORY: fall 2 view right forearm Comparison: None Findings: No displaced fracture of the imaged right radius or imaged right ulna. No dislocation of the imaged wrist or elbow. Degenerative changes include partially imaged wrists. Proximal soft tissue swelling suggested. No radiopaque retained foreign body. IMPRESSION: 1. No acute fracture or dislocation. 2. Osteoarthritis of the imaged wrists. This document has been electronically signed by: Nicola Almendarez MD on 06/01/2024 01:14:07
--- NOTE | ~2024-05-31 | XR_ITS ---
CLINICAL HISTORY: fall 3 view right elbow Comparison: None Findings: No displaced fracture. Mild osteoarthritis without dislocation. Small effusion is nonspecific. No large effusion to support nondisplaced fracture. No radiopaque retained foreign body. IMPRESSION: 1. No acute fracture or dislocation. 2. Mild osteoarthritis. This document has been electronically signed by: Nicola Almendarez MD on 06/01/2024 01:16:02
[2024-05-31 15:06] VITALS: BMI 23.8
[2024-05-31 15:07] VITALS: BP 135/72; PULSE 88; RESP 18; TEMP 35.7; O2SAT 97
[2024-05-31] MEDS: hydrOXYzine HCL 25 MG TABLET PO (16:11)
[2024-05-31] MEDS: ALPRAZolam 0.5 MG TABLET PO ×2 (16:52→20:36)
--- NOTE | 2024-05-31 18:05 | PC.ADMIT ---
Pt arrived on the unit at 1445 via stretcher, as she was a transfer from [place]. She was self presenting to the ED, due to concerns of abdominal pain, and the inability to eat/drink for 2-3 weeks. Pt was treated for Hyponatremia at [place] both IV and PO. Pt very recently moved from [place], with the hope that taking care of her ill daughter, would distract her from her own anxiety and SI. Pt states that this plan worked for a very short time, and then it stopped working. Pt also states that she has been utilizing Xanax senior care to manage anxiety, and she feels as though this drug has caused her stomach issues. Pt is here on a CV and is looking for assistance with medication management, coping skills, regaining appetite, potential AH, and potentially alternative housing. Skin check revealed small horizontal lines under BL breasts, no redness or odor noted. Pt states that she was attempting to utilize other drugs for her anxiety and Zyprexa was having a positive effect. However, pt states that she hasn't picked up this RX since 02/03 because the product was on recall for particles in it . Nutrition consult placed due to 7 lb weight loss from poor appetite.
[2024-05-31 20:00] VITALS: BP 133/67; PULSE 90; RESP 16; TEMP 36.4; O2SAT 98
[2024-05-31] MEDS: OLANZapine 5 MG TABLET PO (20:36)
[2024-05-31] MEDS: traZODone HCL 50 MG TABLET PO (20:36)
--- NOTE | 2024-06-01 00:04 | PM.EVENT ---
Event Note Date of Service: 06/01/24 Event Note: Rapid response was called due to unwitnessed fall. Patient states she was in the restroom when she felt dizzy and fell. Did not lose consciousness. No chest pain or palpitations prior to the fall. No jerking movement of extremities. Patient saw her primary care physician about a week ago for ongoing dizziness. The dizziness has been ongoing for a while about a month and it was attributed to a device that is placed in the ear by ENT that has possibly become loose causing the dizziness. The device was placed by ENT many years ago. Patient did not hit her head but will obtain CT head as fall was unwitnessed. Patient fell on her right arm, will obtain x-ray. Orthostatics negative. Patient counseled regarding asking for help to go to the restroom at night to prevent falls. Will need outpatient ENT follow-up Time Spent With Patient Time: Total time managing care of this patient today ____ minutes.
[2024-06-01] MEDS: Meclizine HCl 25 MG TABLET PO (00:05)
--- NOTE | 2024-06-01 00:55 | PC.NURSE ---
Addendum entered by Rajesh Ramirez RN 06/01/24 03:26: somnolent. bed alarms on. all radiological images negative for acute pathology. Original Note: 05-31-23 [id number] COMMUNICATION CONSULTANT CALLED- pt rang emergency call srinivasan in bathroom. responding staff found pt standing on the bathroom floor. pt states that she fell to the floor after becoming dizzy. pt states that she has inner ear problems and became dizzy when she exited the bed. pt states i'm on to many meds and the bathroom is so big with nothing to hold onto. pt states she fell onto right arm and struck elbow. she states she did not have LOC and did not strike her head. with assistance, pt is returned to bed. her gait is unsteady and she has a frail debilitated appearance. upon returning to bed vital signs obtained. 99 bpm rr 16 sao2 98% b/p 122/57. a small abrasion is noted right elbow. a pea sized avulsion is present on left elbow. CMS of right arm is grossly intact. COMMUNICATION CONSULTANT promptly arrived and DR Bell evaluated pt. television host provider Dr Brock notified of unwitnessed fall. please note earlier in the night pt was shown location of call srinivasan and instructed to call nursing staff should she want to exit the bed. plan - radiological studies of arm and head ordered.
[2024-06-01] MEDS: Omeprazole 20 MG CAPSULE.DR PO (05:44)
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
[2024-06-01] MEDS: Levothyroxine Sodium 75 MCG TABLET PO (06:32)
[2024-06-01 08:00] VITALS: BP 132/61; PULSE 116; RESP 16; TEMP 36.8; O2SAT 97
[2024-06-01 08:12] LABS: Estimated Average Glucose 111 mg/dL; Hemoglobin A1C 125.2823 umol/L; Hemoglobin A1c % 5.5 % (<6.0); Total Hemoglobin (HGBA1C) 3409.4803 umol/L
[2024-06-01 08:26] LABS: Cholesterol 143 mg/dL (<200); HDL Cholesterol 56 mg/dL (>40); LDL Cholesterol Calculated 73 mg/dL (<100); Triglycerides 71 mg/dL (<150)
[2024-06-01] MEDS: ALPRAZolam 0.5 MG TABLET PO ×3 (08:28→20:02)
[2024-06-01 08:43] LABS: Free T4 (Free Thyroxine) 1.57 ng/dL (0.71-1.85); Thyroid Stimulating Hormone 3.34 uIU/mL (0.32-4.0)
[2024-06-01 08:55] LABS: Folate 13.1 ng/mL (> or = 4.0); Vitamin B12 1299 pg/mL (200-900)
--- NOTE | 2024-06-01 13:28 | HO.PSYADMNOT ---
HPI Date of Service: 06/01/24 Chief Complaint: Unspecified Depressive DO Sources of Information: patient interviewed, chart reviewed and crisis/core team assessment reviewed HPI Subjective Notes: Sims Warning and Conditional Voluntary Narrative: The patient is an 84-year-old female, x3, mother of 3 adult children, unemployed, recently relocated from [place] to [place] in September this last year, with an unclear past psychiatric history. She walked in into the emergency room of [facility] complaining of exacerbation of depression elicited by depressed mood, anhedonia, lack of energy and suicidal thoughts. Apparently she overdosed on a few pills of Xanax. She was assessed by crisis and transferring to this facility for psychiatric stabilization. On the intake interview, the patient was a very poor historian, she reported that she moved recently last September from [place] to [place] to her daughter's place but unfortunately her daughter is very sick. She stated that she is concerned about her housing she was in an assisted living facility that she did not like. She also reported that she recently for and she had been receiving psychiatric medications. We review her med reconciliation form and she had been receiving higher doses of Zyprexa that this has been lowered in the last months. She adamantly denies past manic symptoms but, historically, she had a history of impulsive behavior compatible with mood lability. She was able to contract for safety, she was with her granddaughter and we will try to gather more collateral information. Past Psychiatric History: The patient has 2 prior psychiatric history is last admission on June last year that most likely was in [place]. We review her medication reconciliation form and she was on a higher dose of Zyprexa 7.5 mg p.o. q.h.s. in 2023. She also has a chronic history of use of alprazolam. She admitted past history of alcohol use disorder, as per her report not current Medical Evaluation Reviewed: Yes [facility] Medical History Shingles Depression Imbalance Incontinence Thyroid disease Sinusitis Family History: The patient reported that her mother was an alcoholic Social History: She had treat prior marriages and divorces, she has 3 adult children from 2 different partners. Substance History: She reported that she used to abuse alcohol in the past clean and sober as per her report Trauma History: Unclear Diagnostics Vital Signs (24Hr): Vital Signs - 24 hr 05/31/24 15:07 05/31/24 20:00 06/01/24 08:00 Temperature 96.2 F L 97.6 F 98.2 F Pulse Rate 88 90 116 H Respiratory Rate 18 16 16 Blood Pressure 135/72 133/67 132/61 Pulse Oximetry 97 98 97 Oxygen Delivery Method Room Air Room Air Room Air BMI result Body Mass Index 23.8 Labs Labs: Laboratory Results - last 48 hr 06/01/24 07:27 Estimat Average Glucose 111 Hemoglobin A1c % 5.5 Triglycerides 71 Cholesterol 143 LDL Cholesterol, Calc 73 HDL Cholesterol 56 Vitamin B12 1299 H Folate 13.1 TSH 3.34 Free T4 1.57 Meds/Allergies Meds Home Medications ?Medication ?Instructions ?Recorded ?Confirmed ?Type olanzapine 2.5 mg tablet (Zyprexa) 2.5 mg PO 1XD PRN Anxiety 05/31/24 05/31/24 History olanzapine 5 mg tablet (Zyprexa) 5 mg PO BEDTIME 05/31/24 05/31/24 History Allergies Allergies Allergy/AdvReac Type Severity Reaction Status Date / Time Penicillins AdvReac Diarrhea Verified 05/22/24 10:34 Mental Status Exam Mental Status Exam Patient Appearance: Appropriate Patient Orientation: Person and Situation Level of Consciousness: Awake and Appropriate Patient Behavior: Guarded and Passive Mood Description: Withdrawn Affect Description: Withdrawn and Constricted Patient Cognition Impaired: Yes Ability to Follow Directions: Good Speech Pattern: Clear Hallucinations: None Delusions: Ideas of Reference Thought Process: Distracted and Slowed Thinking Thought Content: positive for [place] and positive for Poverty of Content Judgement: Fair Assessment & Plan Assessment & Plan (1) Mood disorder: Status: Acute Code(s): F39 - Unspecified mood [affective] disorder (2) Hypothyroid: Status: Acute Qualifiers: 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 She walked into the emergency room after she overdosed on alprazolam. She has several psychosocial stressors such as unstable housing, limited social support and she is a very poor historian. Plan 1. Gather collateral information. 2. Keep on 15 minute checks since the patient is able to contract for safety. 3. Continue with medical workout. 4. Continue with Zyprexa as per medication reconciliation form. 5. We will start a low dose of mirtazapine to target depression Patient educated on: diagnosis Reason for continued inpatient stay Substantial Risk for: inability to function, rapid decompensation and med/psych decompensation Statement Statement: I have reviewed the history and physical and performed a pertinent examination on my patient. No changes have occurred unless specified. If the History and Physical was not performed prior to admission, the Hospitalist's service will be consulted for completing the admission physical. Time Spent With Patient Time: Total time managing care of this patient today __45__ minutes.
--- NOTE | 2024-06-01 15:05 | MHC.CLN ---
Addendum entered by Vicki Lake RD 06/01/24 15:08: REVIEW OF WEIGHT HX SHOWS WEIGHT LOSS X 4 MONTHS APPROX 11#, -8%. Original Note: NUTRITION CONSULT FOR RECENT 7# WEIGHT LOSS DUE TO POOR PO. LIMITED PO DOC SINCE NEW ADM. RD WILL FOLLOW UP FOR PO INTAKE.
[2024-06-01 20:00] VITALS: BP 117/56; PULSE 79; RESP 16; TEMP 36.1; O2SAT 93
[2024-06-01] MEDS: OLANZapine 5 MG TABLET PO (20:02)
[2024-06-02] MEDS: Omeprazole 20 MG CAPSULE.DR PO (06:04)
[2024-06-02 08:50] VITALS: BP 141/67; PULSE 100; RESP 16; TEMP 36.9; O2SAT 99
[2024-06-02] MEDS: Levothyroxine Sodium 75 MCG TABLET PO (08:51)
[2024-06-02] MEDS: ALPRAZolam 0.5 MG TABLET PO ×3 (08:51→21:16)
--- NOTE | 2024-06-02 16:16 | P.PNPSI_ITS ---
Subjective Subjective Date of Service: 06/02/24 Reason For Visit: Unspecified Depressive DO Subjective Notes: Conditional Voluntary Interim History: The nursing staff reported the patient took Zyprexa with encouragement last night. She slept 8 hours. According to the web content & social media manager and staff the patient and the family wants referral to an assisted living facility. On interview the patient was concerned about over-sedation at night. I explained her that her vital signs are so far okay and we would keep him Zyprexa 5. Starting today Remeron 7.5 p.o. q.h.s. to target depression Mental Status Exam Mental Status Exam Patient Appearance: Appropriate Patient Orientation: Person and Situation Level of Consciousness: Awake and Appropriate Patient Behavior: Guarded and Passive Mood Description: Withdrawn Affect Description: Constricted Patient Cognition Impaired: Yes Ability to Follow Directions: Good Speech Pattern: Clear Hallucinations: None Delusions: Paranoid Ideation and Ideas of Reference Thought Process: Distracted and Slowed Thinking Thought Content: positive for [place] and positive for Poverty of Content Judgement: Fair Diagnostics Vital Signs (24Hr): Vital Signs - 24 hr 06/01/24 20:00 06/02/24 08:50 Temperature 97 F 98.4 F Pulse Rate 79 100 Respiratory Rate 16 16 Blood Pressure 117/56 L 141/67 H Pulse Oximetry 93 99 Oxygen Delivery Method Room Air Room Air BMI result Body Mass Index 23.8 Labs Labs: Laboratory Results - last 48 hr 06/01/24 07:27 Estimat Average Glucose 111 Hemoglobin A1c % 5.5 Triglycerides 71 Cholesterol 143 LDL Cholesterol, Calc 73 HDL Cholesterol 56 Vitamin B12 1299 H Folate 13.1 TSH 3.34 Free T4 1.57 Medications Medications Current Medications Acetaminophen (Acetaminophen 325 Mg Tablet) 650 mg PO Q6H PRN PRN Reason: Headache/Pain, Scale 1-10 Al Hydroxide/Mg Hydroxide (Magnesium Hydrox/Alum Hydrox 30 Ml Oral.Susp) 30 ml PO Q6H PRN PRN Reason: Heartburn/Nausea Alprazolam (Alprazolam 0.5 Mg Tablet) 0.5 mg PO TID [facility] Last Admin: 06/02/24 15:36 Dose: 0.5 mg Hydroxyzine HCl (Hydroxyzine Hcl 25 Mg Tablet) 25 mg PO Q6H PRN PRN Reason: mild anxiety Last Admin: 05/31/24 16:11 Dose: 25 mg Levothyroxine Sodium (Levothyroxine Sodium 75 Mcg Tablet) 75 mcg PO DAILY [facility] Last Admin: 06/02/24 08:51 Dose: 75 mcg Magnesium Hydroxide (Milk Of Magnesia 30 Ml Oral.Susp) 30 ml PO DAILY PRN PRN Reason: Constipation Meclizine HCl (Meclizine Hcl 25 Mg Tablet) 25 mg PO BID PRN PRN Reason: dizziness Last Admin: 06/01/24 00:05 Dose: 25 mg Mirtazapine (Mirtazapine 7.5 Mg Tablet) 7.5 mg PO BEDTIME [facility] Olanzapine (Olanzapine 2.5 Mg Tablet) 2.5 mg PO DAILY PRN PRN Reason: Anxiety Olanzapine (Olanzapine 5 Mg Tablet) 5 mg PO BEDTIME [facility] Last Admin: 06/01/24 20:02 Dose: 5 mg Omeprazole (Omeprazole 20 Mg Capsule.Dr) 20 mg PO DAILY@0630 [facility] Last Admin: 06/02/24 06:04 Dose: 20 mg Ondansetron HCl (Ondansetron Odt 4 Mg Tab.Rapdis) 4 mg TRANSLINGU Q8H PRN PRN Reason: nausea and vomiting Trazodone HCl (Trazodone Hcl 50 Mg Tablet) 50 mg PO BEDTIME MRX1 PRN PRN Reason: Insomnia Last Admin: 05/31/24 20:36 Dose: 50 mg Allergies Allergies Allergy/AdvReac Type Severity Reaction Status Date / Time Penicillins AdvReac Diarrhea Verified 05/22/24 10:34 Assessment & Plan Assessment & Plan (1) Mood disorder: Status: Acute Code(s): F39 - Unspecified mood [affective] disorder (2) Hypothyroid: Qualifiers: 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 She walked into the emergency room after she overdosed on alprazolam. She has several psychosocial stressors such as unstable housing, limited social support and she is a very poor historian. Plan 1. Gather collateral information. 2. Keep on 15 minute checks since the patient is able to contract for safety. 3. Continue with medical workout. 4. Continue with Zyprexa as per medication reconciliation form. 5. We will start a low dose of mirtazapine to target depression Reason for continued inpatient stay Substantial Risk for: inability to function, rapid decompensation and med/psych decompensation Time Spent With Patient Time: Total time managing care of this patient today _20___ minutes.
[2024-06-02 20:00] VITALS: BP 129/58; RESP 18; TEMP 36.1; O2SAT 18
[2024-06-02] MEDS: Mirtazapine 7.5 MG TABLET PO (21:17)
[2024-06-02] MEDS: OLANZapine 5 MG TABLET PO (21:17)
[2024-06-03] MEDS: hydrOXYzine HCL 25 MG TABLET PO (02:11)
[2024-06-03] MEDS: Milk of Magnesia 30 ML ORAL.SUSP PO (02:12)
[2024-06-03] MEDS: Levothyroxine Sodium 75 MCG TABLET PO (06:38)
[2024-06-03] MEDS: Omeprazole 20 MG CAPSULE.DR PO (06:38)
[2024-06-03] MEDS: ALPRAZolam 0.5 MG TABLET PO ×3 (09:47→20:12)
--- NOTE | 2024-06-03 15:41 | HO.PSYCHPN ---
Subjective Subjective Date of Service: 06/03/24 Reason For Visit: Unspecified Depressive DO Subjective Notes: Conditional Voluntary Interim History: The nursing staff reported the patient had good appetite has medication compliance she reported that she had been over-sedated with Zyprexa. On interview the patient reported that she never took a higher dose of Zyprexa and advocate for lower dose so I am lowering to Zyprexa 2.5 p.o. q.h.s.. Mental Status Exam Mental Status Exam Patient Appearance: Well Grooomed Patient Orientation: Person and Situation Level of Consciousness: Awake Patient Behavior: Guarded and Passive Mood Description: Withdrawn Affect Description: Constricted Patient Cognition Impaired: Yes Ability to Follow Directions: Good Speech Pattern: Clear Hallucinations: None Delusions: Not Present Thought Process: Distracted and Slowed Thinking Thought Content: positive for [place] and positive for Poverty of Content Judgement: Fair Diagnostics Vital Signs (24Hr): Vital Signs - 24 hr 06/02/24 20:00 Temperature 96.9 F Respiratory Rate 18 Blood Pressure 129/58 L Pulse Oximetry 18 L Oxygen Delivery Method Room Air BMI result Body Mass Index 23.8 Medications Medications Current Medications Acetaminophen (Acetaminophen 325 Mg Tablet) 650 mg PO Q6H PRN PRN Reason: Headache/Pain, Scale 1-10 Al Hydroxide/Mg Hydroxide (Magnesium Hydrox/Alum Hydrox 30 Ml Oral.Susp) 30 ml PO Q6H PRN PRN Reason: Heartburn/Nausea Alprazolam (Alprazolam 0.5 Mg Tablet) 0.5 mg PO TID [facility] Last Admin: 06/03/24 09:47 Dose: 0.5 mg Hydroxyzine HCl (Hydroxyzine Hcl 25 Mg Tablet) 25 mg PO Q6H PRN PRN Reason: mild anxiety Last Admin: 06/03/24 02:11 Dose: 25 mg Levothyroxine Sodium (Levothyroxine Sodium 75 Mcg Tablet) 75 mcg PO DAILY [facility] Last Admin: 06/03/24 06:38 Dose: 75 mcg Magnesium Hydroxide (Milk Of Magnesia 30 Ml Oral.Susp) 30 ml PO DAILY PRN PRN Reason: Constipation Last Admin: 06/03/24 02:12 Dose: 30 ml Meclizine HCl (Meclizine Hcl 25 Mg Tablet) 25 mg PO BID PRN PRN Reason: dizziness Last Admin: 06/01/24 00:05 Dose: 25 mg Mirtazapine (Mirtazapine 7.5 Mg Tablet) 7.5 mg PO BEDTIME [facility] Last Admin: 06/02/24 21:17 Dose: 7.5 mg Olanzapine (Olanzapine 2.5 Mg Tablet) 2.5 mg PO DAILY PRN PRN Reason: Anxiety Olanzapine (Olanzapine 2.5 Mg Tablet) 2.5 mg PO BEDTIME [facility] Omeprazole (Omeprazole 20 Mg Capsule.Dr) 20 mg PO DAILY@0630 [facility] Last Admin: 06/03/24 06:38 Dose: 20 mg Ondansetron HCl (Ondansetron Odt 4 Mg Tab.Rapdis) 4 mg TRANSLINGU Q8H PRN PRN Reason: nausea and vomiting Trazodone HCl (Trazodone Hcl 50 Mg Tablet) 50 mg PO BEDTIME MRX1 PRN PRN Reason: Insomnia Last Admin: 05/31/24 20:36 Dose: 50 mg Allergies Allergies Allergy/AdvReac Type Severity Reaction Status Date / Time Penicillins AdvReac Diarrhea Verified 05/22/24 10:34 Assessment & Plan Assessment & Plan (1) Mood disorder: Status: Acute Code(s): F39 - Unspecified mood [affective] disorder (2) Hypothyroid: Qualifiers: 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 She walked into the emergency room after she overdosed on alprazolam. She has several psychosocial stressors such as unstable housing, limited social support and she is a very poor historian. Plan 1. Gather collateral information. 2. Keep on 15 minute checks since the patient is able to contract for safety. 3. Continue with medical workout. 4. Continue with Zyprexa as per medication reconciliation form. 5. We will start a low dose of mirtazapine to target depression Reason for continued inpatient stay Substantial Risk for: inability to function, rapid decompensation and med/psych decompensation Time Spent With Patient Time: Total time managing care of this patient today __20__ minutes.
[2024-06-03 20:00] VITALS: BP 131/61; PULSE 88; RESP 16; TEMP 37; O2SAT 95
[2024-06-03] MEDS: Mirtazapine 7.5 MG TABLET PO (20:11)
[2024-06-03] MEDS: OLANZapine 2.5 MG TABLET PO (20:12)
[2024-06-04] MEDS: Omeprazole 20 MG CAPSULE.DR PO (06:07)
[2024-06-04 08:00] VITALS: BP 150/70; PULSE 97; RESP 18; TEMP 36.3; O2SAT 98
[2024-06-04] MEDS: Levothyroxine Sodium 75 MCG TABLET PO (09:47)
[2024-06-04] MEDS: ALPRAZolam 0.5 MG TABLET PO ×3 (09:47→20:10)
--- NOTE | 2024-06-04 17:29 | P.PNPSI_ITS ---
Subjective Subjective Date of Service: 06/04/24 Reason For Visit: Unspecified Depressive DO Interim History: Met with patient; discussed with team Patient says that she is very anxious and does not think Hardeep is working very well. She said it makes her want to stay in bed all the time though she is willing to get up and be out of the bed in the milieu. Patient asks if there can be any medication changes to help with anxiety to which marketing underwriter agrees to consider -otherwise eating well Mental Status Exam Mental Status Exam Narrative: Pt is alert and oriented; behavior is cooperative, anxious; patient is not in distress; dressed in hospital attire, unkempt; mood is described as very anxious and affect congruent; eye contact appropriate; Speech is normal rate, volume and prosody and not pressured; psychomotor retardation present; thought process is goal directed; Thought content is on dealing with anxiety, tx; otherwise pertinent to relevant topics and without any delusional content, paranoid ideations or grandiosity; denies any SI/HI. There is no evidence of perceptual disturbance. Patients insight and judgment appear intact. Diagnostics Vital Signs (24Hr): Vital Signs - 24 hr 06/03/24 20:00 06/04/24 08:00 Temperature 98.6 F 97.3 F Pulse Rate 88 97 Respiratory Rate 16 18 Blood Pressure 131/61 150/70 H Pulse Oximetry 95 98 Oxygen Delivery Method Room Air Room Air BMI result Body Mass Index 23.8 Medications Medications Current Medications Acetaminophen (Acetaminophen 325 Mg Tablet) 650 mg PO Q6H PRN PRN Reason: Headache/Pain, Scale 1-10 Al Hydroxide/Mg Hydroxide (Magnesium Hydrox/Alum Hydrox 30 Ml Oral.Susp) 30 ml PO Q6H PRN PRN Reason: Heartburn/Nausea Alprazolam (Alprazolam 0.5 Mg Tablet) 0.5 mg PO TID ON LICENSE OF [facility] Last Admin: 06/04/24 15:52 Dose: 0.5 mg Hydroxyzine HCl (Hydroxyzine Hcl 25 Mg Tablet) 25 mg PO Q6H PRN PRN Reason: mild anxiety Last Admin: 06/03/24 02:11 Dose: 25 mg Levothyroxine Sodium (Levothyroxine Sodium 75 Mcg Tablet) 75 mcg PO DAILY ON LICENSE OF [facility] Last Admin: 06/04/24 09:47 Dose: 75 mcg Magnesium Hydroxide (Milk Of Magnesia 30 Ml Oral.Susp) 30 ml PO DAILY PRN PRN Reason: Constipation Last Admin: 06/03/24 02:12 Dose: 30 ml Meclizine HCl (Meclizine Hcl 25 Mg Tablet) 25 mg PO BID PRN PRN Reason: dizziness Last Admin: 06/01/24 00:05 Dose: 25 mg Mirtazapine (Mirtazapine 7.5 Mg Tablet) 7.5 mg PO BEDTIME [facility] Last Admin: 06/03/24 20:11 Dose: 7.5 mg Olanzapine (Olanzapine 2.5 Mg Tablet) 2.5 mg PO DAILY PRN PRN Reason: Anxiety Olanzapine (Olanzapine 2.5 Mg Tablet) 2.5 mg PO BEDTIME [facility] Last Admin: 06/03/24 20:12 Dose: 2.5 mg Omeprazole (Omeprazole 20 Mg Capsule.Dr) 20 mg PO DAILY@0630 [facility] Last Admin: 06/04/24 06:07 Dose: 20 mg Ondansetron HCl (Ondansetron Odt 4 Mg Tab.Rapdis) 4 mg TRANSLINGU Q8H PRN PRN Reason: nausea and vomiting Trazodone HCl (Trazodone Hcl 50 Mg Tablet) 50 mg PO BEDTIME MRX1 PRN PRN Reason: Insomnia Last Admin: 05/31/24 20:36 Dose: 50 mg Allergies Allergies Allergy/AdvReac Type Severity Reaction Status Date / Time Penicillins AdvReac Diarrhea Verified 05/22/24 10:34 Assessment & Plan Assessment & Plan (1) Mood disorder: Status: Acute Code(s): F39 - Unspecified mood [affective] disorder (2) Hypothyroid: Qualifiers: 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 She walked into the emergency room after she overdosed on alprazolam. She has several psychosocial stressors such as unstable housing, limited social support and she is a very poor historian. Plan 1. Gather collateral information. 2. Keep on 15 minute checks since the patient is able to contract for safety. 3. Continue with medical workout. 4. Continue with Zyprexa as per medication reconciliation form. 5. We will start a low dose of mirtazapine to target depression Patient educated on: diagnosis and medication risk/benefits Informed Consent: understands and further education needed Reason for continued inpatient stay Substantial Risk for: inability to function Time Spent With Patient Time: Total time managing care of this patient today ____ minutes.
[2024-06-04 20:00] VITALS: BP 111/55; PULSE 94; RESP 16; TEMP 36.4; O2SAT 94
[2024-06-04] MEDS: OLANZapine 2.5 MG TABLET PO (20:10)
[2024-06-04] MEDS: Mirtazapine 7.5 MG TABLET PO (20:11)
[2024-06-05] MEDS: Levothyroxine Sodium 75 MCG TABLET PO (05:59)
[2024-06-05] MEDS: Omeprazole 20 MG CAPSULE.DR PO (05:59)
[2024-06-05 08:00] VITALS: BP 143/70; PULSE 94; RESP 18; TEMP 36.5; O2SAT 97
[2024-06-05] MEDS: ALPRAZolam 0.5 MG TABLET PO (08:28)
[2024-06-05] MEDS: clonazePAM 0.5 MG TABLET PO (14:49)
[2024-06-05 20:00] VITALS: BP 122/59; PULSE 89; RESP 18; TEMP 36.4; O2SAT 95
[2024-06-05] MEDS: Mirtazapine 15 MG TABLET PO (20:27)
[2024-06-05] MEDS: OLANZapine 2.5 MG TABLET PO (20:28)
--- NOTE | 2024-06-05 23:26 | HO.PSYCHPN ---
Subjective Subjective Date of Service: 06/05/24 Reason For Visit: Unspecified Depressive DO Interim History: met w/ patient; discussed with team pt very anxious; discussed medications and she agrees to go up on remeron. Discussed Xanax which she's been on for 20 years; been on TID dosing for 6 months. She agrees to switch to clonazepam since longer acting, less likely to cause rebound anxiety Mental Status Exam Mental Status Exam Narrative: Pt is alert and oriented; behavior is cooperative, anxious; patient is not in distress; dressed in hospital attire, unkempt; mood is described as anxious and affect congruent; eye contact appropriate; Speech is normal rate, volume and prosody and not pressured; psychomotor retardation present; thought process is goal directed; Thought content is on dealing with anxiety, tx; otherwise pertinent to relevant topics and without any delusional content, paranoid ideations or grandiosity; denies any SI/HI. There is no evidence of perceptual disturbance. Patients insight and judgment appear intact. Diagnostics Vital Signs (24Hr): Vital Signs - 24 hr 06/05/24 08:00 06/05/24 20:00 Temperature 97.7 F 97.5 F Pulse Rate 94 89 Respiratory Rate 18 18 Blood Pressure 143/70 H 122/59 L Pulse Oximetry 97 95 Oxygen Delivery Method Room Air Room Air BMI result Body Mass Index 23.8 Medications Medications Current Medications Acetaminophen (Acetaminophen 325 Mg Tablet) 650 mg PO Q6H PRN PRN Reason: Headache/Pain, Scale 1-10 Al Hydroxide/Mg Hydroxide (Magnesium Hydrox/Alum Hydrox 30 Ml Oral.Susp) 30 ml PO Q6H PRN PRN Reason: Heartburn/Nausea Alprazolam (Alprazolam 0.5 Mg Tablet) 0.5 mg PO TID PRN PRN Reason: panic Clonazepam (Clonazepam 0.5 Mg Tablet) 0.5 mg PO BID@0900,1300 [facility] Hydroxyzine HCl (Hydroxyzine Hcl 25 Mg Tablet) 25 mg PO Q6H PRN PRN Reason: mild anxiety Last Admin: 06/03/24 02:11 Dose: 25 mg Levothyroxine Sodium (Levothyroxine Sodium 75 Mcg Tablet) 75 mcg PO DAILY@0630 [facility] Last Admin: 06/05/24 05:59 Dose: 75 mcg Magnesium Hydroxide (Milk Of Magnesia 30 Ml Oral.Susp) 30 ml PO DAILY PRN PRN Reason: Constipation Last Admin: 06/03/24 02:12 Dose: 30 ml Meclizine HCl (Meclizine Hcl 25 Mg Tablet) 25 mg PO BID PRN PRN Reason: dizziness Last Admin: 06/01/24 00:05 Dose: 25 mg Mirtazapine (Mirtazapine 15 Mg Tablet) 15 mg PO BEDTIME [facility] Last Admin: 06/05/24 20:27 Dose: 15 mg Olanzapine (Olanzapine 2.5 Mg Tablet) 2.5 mg PO DAILY PRN PRN Reason: Anxiety Olanzapine (Olanzapine 2.5 Mg Tablet) 2.5 mg PO BEDTIME [facility] Last Admin: 06/05/24 20:28 Dose: 2.5 mg Omeprazole (Omeprazole 20 Mg Capsule.Dr) 20 mg PO DAILY@0630 [facility] Last Admin: 06/05/24 05:59 Dose: 20 mg Ondansetron HCl (Ondansetron Odt 4 Mg Tab.Rapdis) 4 mg TRANSLINGU Q8H PRN PRN Reason: nausea and vomiting Trazodone HCl (Trazodone Hcl 50 Mg Tablet) 50 mg PO BEDTIME MRX1 PRN PRN Reason: Insomnia Last Admin: 05/31/24 20:36 Dose: 50 mg Allergies Allergies Allergy/AdvReac Type Severity Reaction Status Date / Time Penicillins AdvReac Diarrhea Verified 05/22/24 10:34 Assessment & Plan Assessment & Plan (1) Mood disorder: Status: Acute Code(s): F39 - Unspecified mood [affective] disorder (2) Hypothyroid: Qualifiers: 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 She walked into the emergency room after she overdosed on alprazolam. She has several psychosocial stressors such as unstable housing, limited social support and she is a very poor historian. Hospital course: 06/05 remains very anxious Increased Remeron to 15mg due to ongoing anxiety Patient has been on some amount of Xanax for 20 years and been on 0.5mg TID for 6 months; short acting benzo's likely causing rebound anxiety. Will Switch to long acting Clonazepam 0.5mg BID 0900,1300 (will consider making it TID) and make Xanax into a prn for panic Plan 1. Gather collateral information. 2. Keep on 15 minute checks since the patient is able to contract for safety. 3. Continue with medical workout. 4. Continue with Zyprexa as per medication reconciliation form. 5. We will start a low dose of mirtazapine to target depression Patient educated on: diagnosis and medication risk/benefits Informed Consent: understands Reason for continued inpatient stay Substantial Risk for: inability to function Time Spent With Patient Time: Total time managing care of this patient today ____ minutes.
[2024-06-06] MEDS: Levothyroxine Sodium 75 MCG TABLET PO (06:51)
[2024-06-06] MEDS: Omeprazole 20 MG CAPSULE.DR PO (06:51)
[2024-06-06] MEDS: clonazePAM 0.5 MG TABLET PO ×2 (09:00→15:01)
[2024-06-06 09:05] VITALS: BP 147/69; PULSE 101; RESP 16; TEMP 36.9; O2SAT 97
--- NOTE | 2024-06-06 09:33 | P.PNPSI_ITS ---
Subjective Subjective Date of Service: 06/06/24 Reason For Visit: Unspecified Depressive DO Subjective Notes: Conditional Voluntary Interim History: The nursing staff reported the patient had been calm flat, medication compliant. Over the weekend the Xanax was changed to standing Klonopin and p.r.n.. The social media senior associate reported that she has called the previous long-term facility to get more collateral. She slept 6 hours. On interview the patient denies new symptoms, looks pleasantly confused. Mental Status Exam Mental Status Exam Patient Appearance: Appropriate Patient Orientation: Person and Situation Level of Consciousness: Awake and Appropriate Patient Behavior: Guarded and Passive Mood Description: Withdrawn Affect Description: Constricted Patient Cognition Impaired: Yes Ability to Follow Directions: Good Speech Pattern: Clear Hallucinations: None Delusions: Ideas of Reference Thought Process: Distracted and Slowed Thinking Thought Content: positive for [place] and positive for Poverty of Content Judgement: Fair Diagnostics Vital Signs (24Hr): Vital Signs - 24 hr 06/05/24 20:00 06/06/24 09:05 Temperature 97.5 F 98.4 F Pulse Rate 89 101 H Respiratory Rate 18 16 Blood Pressure 122/59 L 147/69 H Pulse Oximetry 95 97 Oxygen Delivery Method Room Air Room Air BMI result Body Mass Index 23.8 Medications Medications Current Medications Acetaminophen (Acetaminophen 325 Mg Tablet) 650 mg PO Q6H PRN PRN Reason: Headache/Pain, Scale 1-10 Al Hydroxide/Mg Hydroxide (Magnesium Hydrox/Alum Hydrox 30 Ml Oral.Susp) 30 ml PO Q6H PRN PRN Reason: Heartburn/Nausea Alprazolam (Alprazolam 0.5 Mg Tablet) 0.5 mg PO TID PRN PRN Reason: panic Clonazepam (Clonazepam 0.5 Mg Tablet) 0.5 mg PO BID@0900,1300 [facility] Last Admin: 06/06/24 09:00 Dose: 0.5 mg Hydroxyzine HCl (Hydroxyzine Hcl 25 Mg Tablet) 25 mg PO Q6H PRN PRN Reason: mild anxiety Last Admin: 06/03/24 02:11 Dose: 25 mg Levothyroxine Sodium (Levothyroxine Sodium 75 Mcg Tablet) 75 mcg PO DAILY@0630 [facility] Last Admin: 06/06/24 06:51 Dose: 75 mcg Magnesium Hydroxide (Milk Of Magnesia 30 Ml Oral.Susp) 30 ml PO DAILY PRN PRN Reason: Constipation Last Admin: 06/03/24 02:12 Dose: 30 ml Meclizine HCl (Meclizine Hcl 25 Mg Tablet) 25 mg PO BID PRN PRN Reason: dizziness Last Admin: 06/01/24 00:05 Dose: 25 mg Mirtazapine (Mirtazapine 15 Mg Tablet) 15 mg PO BEDTIME [facility] Last Admin: 06/05/24 20:27 Dose: 15 mg Olanzapine (Olanzapine 2.5 Mg Tablet) 2.5 mg PO DAILY PRN PRN Reason: Anxiety Olanzapine (Olanzapine 2.5 Mg Tablet) 2.5 mg PO BEDTIME [facility] Last Admin: 06/05/24 20:28 Dose: 2.5 mg Omeprazole (Omeprazole 20 Mg Capsule.Dr) 20 mg PO DAILY@0630 [facility] Last Admin: 06/06/24 06:51 Dose: 20 mg Ondansetron HCl (Ondansetron Odt 4 Mg Tab.Rapdis) 4 mg TRANSLINGU Q8H PRN PRN Reason: nausea and vomiting Trazodone HCl (Trazodone Hcl 50 Mg Tablet) 50 mg PO BEDTIME MRX1 PRN PRN Reason: Insomnia Last Admin: 05/31/24 20:36 Dose: 50 mg Allergies Allergies Allergy/AdvReac Type Severity Reaction Status Date / Time Penicillins AdvReac Diarrhea Verified 05/22/24 10:34 Assessment & Plan Assessment & Plan (1) Mood disorder: Status: Acute Code(s): F39 - Unspecified mood [affective] disorder (2) Hypothyroid: Qualifiers: 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 She walked into the emergency room after she overdosed on alprazolam. She has several psychosocial stressors such as unstable housing, limited social support and she is a very poor historian. Plan 1. Gather collateral information. 2. Keep on 15 minute checks since the patient is able to contract for safety. 3. Continue with medical workout. 4. Continue with Zyprexa as per medication reconciliation form. Later on we lowered Zyprexa to 2.5 mg p.o. q.h.s. since she reports over-sedation. 5. We will start a low dose of mirtazapine to target depression Reason for continued inpatient stay Substantial Risk for: inability to function, rapid decompensation and med/psych decompensation Time Spent With Patient Time: Total time managing care of this patient today __20__ minutes.
[2024-06-06] MEDS: Meclizine HCl 25 MG TABLET PO (12:01)
--- NOTE | 2024-06-06 15:49 | MHC.CLN ---
F/U REVIEW OF PO INTAKE SHOWS 50-100% INTAKE AT MEAL WITH MANY 100%. NO ADDITIONAL NUTRITION INTERVENTIONS AT THIS TIME.
[2024-06-06 20:00] VITALS: BP 103/56; PULSE 77; TEMP 35.9; O2SAT 94
[2024-06-06] MEDS: Mirtazapine 15 MG TABLET PO (21:24)
[2024-06-06] MEDS: OLANZapine 2.5 MG TABLET PO (21:24)
--- NOTE | 2024-06-07 | ECG_ITS ---
Test Reason : PALPITATIONS Blood Pressure : */* mmHG Vent. Rate : 95 BPM Atrial Rate : 95 BPM P-R Int : 190 ms QRS Dur : 76 ms QT Int : 338 ms P-R-T Axes : 44 -7 17 degrees QTcB Int : 424 ms Normal sinus rhythm Minimal voltage criteria for LVH, may be normal variant ( R in aVL ) Borderline ECG No previous ECGs available Referred By: Sharona Bowers Electronically Signed By: Last Penn
[2024-06-07] MEDS: Levothyroxine Sodium 75 MCG TABLET PO (06:27)
[2024-06-07] MEDS: Omeprazole 20 MG CAPSULE.DR PO (06:27)
[2024-06-07 09:45] VITALS: BP 169/75; PULSE 93; RESP 16; TEMP 36.4; O2SAT 97
[2024-06-07] MEDS: clonazePAM 0.5 MG TABLET PO (09:47)
[2024-06-07 09:49] VITALS: BP 168/76; PULSE 88
--- NOTE | 2024-06-07 10:25 | P.PNPSI_ITS ---
Subjective Subjective Date of Service: 06/07/24 Reason For Visit: Unspecified Depressive DO Subjective Notes: Conditional Voluntary Interim History: The nursing staff reported the patient had been anxious DCF at times. Poor sleep medication compliant. The health care social worker reported that we are going to have family meeting tomorrow for placement of assisted living facility. The nursing staff reported in the afternoon that her blood pressure was high and pulse high probably benzodiazepine withdrawal? She is taking now Klonopin standing instead of Xanax. Mental Status Exam Mental Status Exam Patient Appearance: Appropriate Patient Orientation: Person and Situation Level of Consciousness: Awake and Appropriate Patient Behavior: Guarded and Passive Mood Description: Withdrawn Affect Description: Constricted Patient Cognition Impaired: Yes Ability to Follow Directions: Good Speech Pattern: Clear Hallucinations: None Delusions: Not Present Thought Process: Distracted and Slowed Thinking Thought Content: positive for [place] and positive for Poverty of Content Judgement: Fair Diagnostics Vital Signs (24Hr): Vital Signs - 24 hr 06/06/24 20:00 06/07/24 09:45 06/07/24 09:49 Temperature 96.7 F L 97.5 F Pulse Rate 77 93 88 Respiratory Rate 16 Blood Pressure 103/56 L 169/75 H 168/76 H Pulse Oximetry 94 97 Oxygen Delivery Method Room Air Room Air BMI result Body Mass Index 23.8 Labs 06/07/24 14:49 06/07/24 14:49 Medications Medications Current Medications Acetaminophen (Acetaminophen 325 Mg Tablet) 650 mg PO Q6H PRN PRN Reason: Headache/Pain, Scale 1-10 Al Hydroxide/Mg Hydroxide (Magnesium Hydrox/Alum Hydrox 30 Ml Oral.Susp) 30 ml PO Q6H PRN PRN Reason: Heartburn/Nausea Alprazolam (Alprazolam 0.5 Mg Tablet) 0.5 mg PO TID PRN PRN Reason: panic Clonazepam (Clonazepam 0.5 Mg Tablet) 0.5 mg PO BID@0900,1300 [facility] Last Admin: 06/07/24 09:47 Dose: 0.5 mg Hydroxyzine HCl (Hydroxyzine Hcl 25 Mg Tablet) 25 mg PO Q6H PRN PRN Reason: mild anxiety Last Admin: 06/03/24 02:11 Dose: 25 mg Levothyroxine Sodium (Levothyroxine Sodium 75 Mcg Tablet) 75 mcg PO DAILY@0630 [facility] Last Admin: 06/07/24 06:27 Dose: 75 mcg Magnesium Hydroxide (Milk Of Magnesia 30 Ml Oral.Susp) 30 ml PO DAILY PRN PRN Reason: Constipation Last Admin: 06/03/24 02:12 Dose: 30 ml Meclizine HCl (Meclizine Hcl 25 Mg Tablet) 25 mg PO BID PRN PRN Reason: dizziness Last Admin: 06/06/24 12:01 Dose: 25 mg Mirtazapine (Mirtazapine 15 Mg Tablet) 15 mg PO BEDTIME BECCA Last Admin: 06/06/24 21:24 Dose: 15 mg Olanzapine (Olanzapine 2.5 Mg Tablet) 2.5 mg PO DAILY PRN PRN Reason: Anxiety Olanzapine (Olanzapine 2.5 Mg Tablet) 2.5 mg PO BEDTIME BECCA Last Admin: 06/06/24 21:24 Dose: 2.5 mg Omeprazole (Omeprazole 20 Mg Capsule.Dr) 20 mg PO DAILY@0630 [facility] Last Admin: 06/07/24 06:27 Dose: 20 mg Ondansetron HCl (Ondansetron Odt 4 Mg Tab.Rapdis) 4 mg TRANSLINGU Q8H PRN PRN Reason: nausea and vomiting Trazodone HCl (Trazodone Hcl 50 Mg Tablet) 50 mg PO BEDTIME MRX1 PRN PRN Reason: Insomnia Last Admin: 05/31/24 20:36 Dose: 50 mg Allergies Allergies Allergy/AdvReac Type Severity Reaction Status Date / Time Penicillins AdvReac Diarrhea Verified 05/22/24 10:34 Assessment & Plan Assessment & Plan (1) Mood disorder: Status: Acute Code(s): F39 - Unspecified mood [affective] disorder (2) Hypothyroid: Qualifiers: 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 She walked into the emergency room after she overdosed on alprazolam. She has several psychosocial stressors such as unstable housing, limited social support and she is a very poor historian. Plan 1. Gather collateral information. 2. Keep on 15 minute checks since the patient is able to contract for safety. 3. Continue with medical workout. 4. Continue with Zyprexa as per medication reconciliation form. Later on we lowered Zyprexa to 2.5 mg p.o. q.h.s. since she reports over-sedation. 5. We will start a low dose of mirtazapine to target depression Reason for continued inpatient stay Substantial Risk for: inability to function, rapid decompensation and med/psych decompensation Time Spent With Patient Time: Total time managing care of this patient today __20__ minutes.
[2024-06-07] MEDS: ALPRAZolam 0.5 MG TABLET PO ×2 (11:39→17:10)
[2024-06-07 14:53] VITALS: BP 138/76; PULSE 92
--- NOTE | 2024-06-07 15:02 | P.EN_ITS ---
Event Note Date of Service: 06/07/24 Event Note: 84-year-old woman admitted to [facility] for mood disorder. Blood pressure noted to be elevated. Patient denies chest pain, shortness of breath, headache. Patient did report increase of anxiety Patient alert and oriented Lungs with normal expansion Heart regular rhythm No edema Elevated blood pressure readings No Trend, isolated Possibly secondary to psychiatric admission, anxiety Monitor blood pressures as per protocol Time Spent With Patient Time: Total time managing care of this patient today ____ minutes.
[2024-06-07 15:07] LABS: Hematocrit 36.4 % (37.0-47.0); Hemoglobin 12.5 g/dl (12.0-16.0); Mean Corpuscular HGB Conc 34.3 g/dl (31.0-35.0); Mean Corpuscular Hemoglobin 32.2 pg (27.0-33.0); Mean Corpuscular Volume 93.8 fL (80.0-98.0); Mean Platelet Volume 9.3 fL (9.4-12.3); Platelet Count 342 X10*3/uL (160-400); Red Blood Count 3.88 X10*6/uL (4.20-5.50); Red Cell Distribution Width 14.4 % (11.0-16.0); White Blood Count 6.7 X10*3/uL (4.8-10.8)
[2024-06-07 15:28] LABS: Anion Gap 11 (12-20); Blood Urea Nitrogen 15 mg/dL (9-16); Calcium 9.1 mg/dL (8.4-10.2); Carbon Dioxide 26 mmol/L (22-29); Chloride 107 mmol/L (96-108); Creatinine Clr Calc Pharmacy 44.2; Estimated Glomerular Filt Rate > 60; Glucose Random 92 mg/dL (60-115); Magnesium 2.3 mg/dL (1.6-2.6); Potassium 4.3 mmol/L (3.3-5.1); Sodium 140 mmol/L (135-145)
[2024-06-07 20:00] VITALS: BP 115/58; PULSE 92; TEMP 36.7; O2SAT 96
[2024-06-07] MEDS: OLANZapine 2.5 MG TABLET PO (20:38)
[2024-06-07] MEDS: Mirtazapine 15 MG TABLET PO (20:38)
[2024-06-08] MEDS: Omeprazole 20 MG CAPSULE.DR PO (05:36)
[2024-06-08] MEDS: Levothyroxine Sodium 75 MCG TABLET PO (05:36)
[2024-06-08 09:42] VITALS: BP 150/67; PULSE 97; RESP 16; TEMP 36.9; O2SAT 97
[2024-06-08] MEDS: clonazePAM 0.5 MG TABLET PO (10:15)
--- NOTE | 2024-06-08 10:26 | P.PNPSI_ITS ---
Subjective Subjective Date of Service: 06/08/24 Reason For Visit: Unspecified Depressive DO Subjective Notes: Conditional Voluntary Interim History: The nursing staff reported the patient had been anxious, with mild hypertension and increase pulse we had a hospital consult and blood work that showed no new findings. She slept 8 hours. The social worker delinquency prevention reported that we will have a family meeting at 11:00 o'clock today. On interview the patient denies new symptoms she looks anxious but able to cope with it. We discussed options and she agreed to go back to Xanax instead of Klonopin. Mental Status Exam Mental Status Exam Patient Appearance: Appropriate Patient Orientation: Person and Situation Level of Consciousness: Awake and Appropriate Patient Behavior: Guarded and Passive Mood Description: Withdrawn Affect Description: Constricted Patient Cognition Impaired: Yes Ability to Follow Directions: Good Speech Pattern: Clear Hallucinations: None Delusions: Paranoid Ideation and Ideas of Reference Thought Process: Distracted and Slowed Thinking Thought Content: positive for [place] and positive for Poverty of Content Judgement: Fair Diagnostics Vital Signs (24Hr): Vital Signs - 24 hr 06/07/24 14:53 06/07/24 20:00 06/08/24 09:42 Temperature 98.0 F 98.4 F Pulse Rate 92 92 97 Respiratory Rate 16 Blood Pressure 138/76 115/58 L 150/67 H Pulse Oximetry 96 97 Oxygen Delivery Method Room Air Room Air BMI result Body Mass Index 23.8 Labs 06/07/24 14:49 06/07/24 14:49 Labs: Laboratory Results - last 48 hr 06/07/24 14:49 WBC 6.7 RBC 3.88 L Hgb 12.5 Hct 36.4 L MCV 93.8 MCH 32.2 MCHC 34.3 RDW 14.4 Plt Count 342 MPV 9.3 L Absolute Nucleated RBC 0.000 Nucleated RBC % (auto) 0.0 Sodium 140 Potassium 4.3 Chloride 107 Carbon Dioxide 26 Anion Gap 11 L BUN 15 Creatinine 0.74 Estim Creat Clear Calc 44.2 Estimated GFR > 60 Random Glucose 92 Calcium 9.1 Magnesium 2.3 Medications Medications Current Medications Acetaminophen (Acetaminophen 325 Mg Tablet) 650 mg PO Q6H PRN PRN Reason: Headache/Pain, Scale 1-10 Al Hydroxide/Mg Hydroxide (Magnesium Hydrox/Alum Hydrox 30 Ml Oral.Susp) 30 ml PO Q6H PRN PRN Reason: Heartburn/Nausea Alprazolam (Alprazolam 0.5 Mg Tablet) 0.5 mg PO TID PRN PRN Reason: panic Last Admin: 06/07/24 17:10 Dose: 0.5 mg Clonazepam (Clonazepam 0.5 Mg Tablet) 0.5 mg PO BID@0900,1300 [facility] Last Admin: 06/08/24 10:15 Dose: 0.5 mg Hydroxyzine HCl (Hydroxyzine Hcl 25 Mg Tablet) 25 mg PO Q6H PRN PRN Reason: mild anxiety Last Admin: 06/03/24 02:11 Dose: 25 mg Levothyroxine Sodium (Levothyroxine Sodium 75 Mcg Tablet) 75 mcg PO DAILY@0630 [facility] Last Admin: 06/08/24 05:36 Dose: 75 mcg Magnesium Hydroxide (Milk Of Magnesia 30 Ml Oral.Susp) 30 ml PO DAILY PRN PRN Reason: Constipation Last Admin: 06/03/24 02:12 Dose: 30 ml Meclizine HCl (Meclizine Hcl 25 Mg Tablet) 25 mg PO BID PRN PRN Reason: dizziness Last Admin: 06/06/24 12:01 Dose: 25 mg Mirtazapine (Mirtazapine 15 Mg Tablet) 15 mg PO BEDTIME [facility] Last Admin: 06/07/24 20:38 Dose: 15 mg Olanzapine (Olanzapine 2.5 Mg Tablet) 2.5 mg PO DAILY PRN PRN Reason: Anxiety Olanzapine (Olanzapine 2.5 Mg Tablet) 2.5 mg PO BEDTIME [facility] Last Admin: 06/07/24 20:38 Dose: 2.5 mg Omeprazole (Omeprazole 20 Mg Capsule.Dr) 20 mg PO DAILY@629 [facility] Last Admin: 06/08/24 05:36 Dose: 20 mg Ondansetron HCl (Ondansetron Odt 4 Mg Tab.Rapdis) 4 mg TRANSLINGU Q8H PRN PRN Reason: nausea and vomiting Trazodone HCl (Trazodone Hcl 50 Mg Tablet) 50 mg PO BEDTIME MRX1 PRN PRN Reason: Insomnia Last Admin: 05/31/24 20:36 Dose: 50 mg Allergies Allergies Allergy/AdvReac Type Severity Reaction Status Date / Time Penicillins AdvReac Diarrhea Verified 05/22/24 10:34 Assessment & Plan Assessment & Plan (1) Mood disorder: Status: Acute Code(s): F39 - Unspecified mood [affective] disorder (2) Hypothyroid: Qualifiers: 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 She walked into the emergency room after she overdosed on alprazolam. She has several psychosocial stressors such as unstable housing, limited social support and she is a very poor historian. Plan 1. Gather collateral information. 2. Keep on 15 minute checks since the patient is able to contract for safety. 3. Continue with medical workout. 4. Continue with Zyprexa as per medication reconciliation form. Later on we lowered Zyprexa to 2.5 mg p.o. q.h.s. since she reports over-sedation. 5. We will start a low dose of mirtazapine to target depression 6. We tried to cross taper her from Xanax to Klonopin but she remains anxious with some withdrawal symptoms so we are keeping now back on Xanax 0.5 p.o. t.i.d. Reason for continued inpatient stay Substantial Risk for: inability to function, rapid decompensation and med/psych decompensation Time Spent With Patient Time: Total time managing care of this patient today __20__ minutes.
[2024-06-08] MEDS: ALPRAZolam 0.5 MG TABLET PO ×2 (14:24→21:57)
[2024-06-08 20:00] VITALS: BP 109/55; PULSE 78; RESP 16; TEMP 36.9; O2SAT 95
[2024-06-08] MEDS: OLANZapine 2.5 MG TABLET PO (21:57)
[2024-06-08] MEDS: Mirtazapine 15 MG TABLET PO (21:57)
[2024-06-09] MEDS: Omeprazole 20 MG CAPSULE.DR PO (06:29)
[2024-06-09] MEDS: Levothyroxine Sodium 75 MCG TABLET PO (06:29)
[2024-06-09 07:00] VITALS: BMI 24.7
[2024-06-09 08:00] VITALS: BP 145/68; PULSE 80; RESP 16; TEMP 36.2; O2SAT 94
[2024-06-09] MEDS: ALPRAZolam 0.5 MG TABLET PO ×3 (09:25→21:14)
--- NOTE | 2024-06-09 10:53 | HO.PSYCHPN ---
Subjective Subjective Date of Service: 06/09/24 Reason For Visit: Unspecified Depressive DO Subjective Notes: Conditional Voluntary Interim History: The nursing staff reported the patient had been anxious and dysphoric ate 100% of her meals she had been fully compliant with medications and slept 6 hours. The social security assessor reported that she had done several referrals to the assisted living facilities. On interview the patient complains of increased anxiety she agreed to add gabapentin on top of her Xanax to address anxiety. No suicidal thoughts. Mental Status Exam Mental Status Exam Patient Appearance: Appropriate Patient Orientation: Person and Situation Level of Consciousness: Awake and Appropriate Patient Behavior: Guarded and Passive Mood Description: Withdrawn Affect Description: Constricted Patient Cognition Impaired: Yes Ability to Follow Directions: Good Speech Pattern: Clear Hallucinations: None Delusions: Paranoid Ideation and Ideas of Reference Thought Process: Distracted and Slowed Thinking Thought Content: positive for [place] and positive for Poverty of Content Judgement: Fair Diagnostics Vital Signs (24Hr): Vital Signs - 24 hr 06/08/24 20:00 06/09/24 08:00 Temperature 98.4 F 97.2 F Pulse Rate 78 80 Respiratory Rate 16 16 Blood Pressure 109/55 L 145/68 H Pulse Oximetry 95 94 Oxygen Delivery Method Room Air Room Air BMI result Body Mass Index 23.8 Labs 06/07/24 14:49 06/07/24 14:49 Labs: Laboratory Results - last 48 hr 06/07/24 14:49 WBC 6.7 RBC 3.88 L Hgb 12.5 Hct 36.4 L MCV 93.8 MCH 32.2 MCHC 34.3 RDW 14.4 Plt Count 342 MPV 9.3 L Absolute Nucleated RBC 0.000 Nucleated RBC % (auto) 0.0 Sodium 140 Potassium 4.3 Chloride 107 Carbon Dioxide 26 Anion Gap 11 L BUN 15 Creatinine 0.74 Estim Creat Clear Calc 44.2 Estimated GFR > 60 Random Glucose 92 Calcium 9.1 Magnesium 2.3 Medications Medications Current Medications Acetaminophen (Acetaminophen 325 Mg Tablet) 650 mg PO Q6H PRN PRN Reason: Headache/Pain, Scale 1-10 Al Hydroxide/Mg Hydroxide (Magnesium Hydrox/Alum Hydrox 30 Ml Oral.Susp) 30 ml PO Q6H PRN PRN Reason: Heartburn/Nausea Alprazolam (Alprazolam 0.5 Mg Tablet) 0.5 mg PO TID [facility] Last Admin: 06/09/24 09:25 Dose: 0.5 mg Hydroxyzine HCl (Hydroxyzine Hcl 25 Mg Tablet) 25 mg PO Q6H PRN PRN Reason: mild anxiety Last Admin: 06/03/24 02:11 Dose: 25 mg Levothyroxine Sodium (Levothyroxine Sodium 75 Mcg Tablet) 75 mcg PO DAILY@0630 [facility] Last Admin: 06/09/24 06:29 Dose: 75 mcg Magnesium Hydroxide (Milk Of Magnesia 30 Ml Oral.Susp) 30 ml PO DAILY PRN PRN Reason: Constipation Last Admin: 06/03/24 02:12 Dose: 30 ml Meclizine HCl (Meclizine Hcl 25 Mg Tablet) 25 mg PO BID PRN PRN Reason: dizziness Last Admin: 06/06/24 12:01 Dose: 25 mg Mirtazapine (Mirtazapine 15 Mg Tablet) 15 mg PO BEDTIME [facility] Last Admin: 06/08/24 21:57 Dose: 15 mg Olanzapine (Olanzapine 2.5 Mg Tablet) 2.5 mg PO DAILY PRN PRN Reason: Anxiety Olanzapine (Olanzapine 2.5 Mg Tablet) 2.5 mg PO BEDTIME [facility] Last Admin: 06/08/24 21:57 Dose: 2.5 mg Omeprazole (Omeprazole 20 Mg Capsule.Dr) 20 mg PO DAILY@0630 [facility] Last Admin: 06/09/24 06:29 Dose: 20 mg Ondansetron HCl (Ondansetron Odt 4 Mg Tab.Rapdis) 4 mg TRANSLINGU Q8H PRN PRN Reason: nausea and vomiting Trazodone HCl (Trazodone Hcl 50 Mg Tablet) 50 mg PO BEDTIME MRX1 PRN PRN Reason: Insomnia Last Admin: 05/31/24 20:36 Dose: 50 mg Allergies Allergies Allergy/AdvReac Type Severity Reaction Status Date / Time Penicillins AdvReac Diarrhea Verified 05/22/24 10:34 Assessment & Plan Assessment & Plan (1) Mood disorder: Status: Acute Code(s): F39 - Unspecified mood [affective] disorder (2) Hypothyroid: Qualifiers: 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 She walked into the emergency room after she overdosed on alprazolam. She has several psychosocial stressors such as unstable housing, limited social support and she is a very poor historian. Plan 1. Gather collateral information. 2. Keep on 15 minute checks since the patient is able to contract for safety. 3. Continue with medical workout. 4. Continue with Zyprexa as per medication reconciliation form. Later on we lowered Zyprexa to 2.5 mg p.o. q.h.s. since she reports over-sedation. 5. We will start a low dose of mirtazapine to target depression 6. We tried to cross taper her from Xanax to Klonopin but she remains anxious with some withdrawal symptoms so we are keeping now back on Xanax 0.5 p.o. t.i.d. 7. Gabapentin 100 mg p.o. t.i.d. to target anxiety, we will will check if she gets over-sedated. Reason for continued inpatient stay Substantial Risk for: inability to function, rapid decompensation and med/psych decompensation Time Spent With Patient Time: Total time managing care of this patient today __20__ minutes.
[2024-06-09] MEDS: Gabapentin 100 MG CAPSULE PO ×2 (14:44→21:14)
[2024-06-09 20:00] VITALS: BP 126/58; PULSE 76; RESP 18; TEMP 37; O2SAT 94
[2024-06-09] MEDS: Mirtazapine 15 MG TABLET PO (21:14)
[2024-06-09] MEDS: OLANZapine 2.5 MG TABLET PO (21:14)
[2024-06-10] MEDS: Omeprazole 20 MG CAPSULE.DR PO (05:53)
[2024-06-10] MEDS: Levothyroxine Sodium 75 MCG TABLET PO (05:53)
[2024-06-10 08:03] VITALS: BP 148/75; PULSE 86; RESP 16; TEMP 36.1; O2SAT 97
[2024-06-10] MEDS: Gabapentin 100 MG CAPSULE PO ×3 (08:06→20:15)
[2024-06-10] MEDS: ALPRAZolam 0.5 MG TABLET PO ×3 (08:06→20:16)
--- NOTE | 2024-06-10 13:58 | HO.PSYCHPN ---
Subjective Subjective Date of Service: 06/10/24 Reason For Visit: Unspecified Depressive DO Subjective Notes: Conditional Voluntary Interim History: The nursing staff reported the patient had been compliant with treatment, the staff has noticed that she is attending now to groups. On interview the patient reports that she is less anxious since gabapentin was started, her affect is even brighter. Mental Status Exam Mental Status Exam Patient Appearance: Appropriate Patient Orientation: Person and Situation Level of Consciousness: Awake and Appropriate Patient Behavior: Guarded and Passive Mood Description: Withdrawn Affect Description: Constricted Patient Cognition Impaired: Yes Ability to Follow Directions: Good Speech Pattern: Clear Hallucinations: None Delusions: Ideas of Reference Thought Process: Distracted and Slowed Thinking Thought Content: positive for [place] and positive for Poverty of Content Judgement: Fair Diagnostics Vital Signs (24Hr): Vital Signs - 24 hr 06/09/24 20:00 06/10/24 08:03 Temperature 98.6 F 96.9 F Pulse Rate 76 86 Respiratory Rate 18 16 Blood Pressure 126/58 L 148/75 H Pulse Oximetry 94 97 Oxygen Delivery Method Room Air Room Air BMI result Body Mass Index 24.7 Labs 06/07/24 14:49 06/07/24 14:49 Medications Medications Current Medications Acetaminophen (Acetaminophen 325 Mg Tablet) 650 mg PO Q6H PRN PRN Reason: Headache/Pain, Scale 1-10 Al Hydroxide/Mg Hydroxide (Magnesium Hydrox/Alum Hydrox 30 Ml Oral.Susp) 30 ml PO Q6H PRN PRN Reason: Heartburn/Nausea Alprazolam (Alprazolam 0.5 Mg Tablet) 0.5 mg PO TID [facility] Last Admin: 06/10/24 08:06 Dose: 0.5 mg Gabapentin (Gabapentin 100 Mg Capsule) 100 mg PO TID [facility] Last Admin: 06/10/24 08:06 Dose: 100 mg Hydroxyzine HCl (Hydroxyzine Hcl 25 Mg Tablet) 25 mg PO Q6H PRN PRN Reason: mild anxiety Last Admin: 06/03/24 02:11 Dose: 25 mg Levothyroxine Sodium (Levothyroxine Sodium 75 Mcg Tablet) 75 mcg PO DAILY@0630 [facility] Last Admin: 06/10/24 05:53 Dose: 75 mcg Magnesium Hydroxide (Milk Of Magnesia 30 Ml Oral.Susp) 30 ml PO DAILY PRN PRN Reason: Constipation Last Admin: 06/03/24 02:12 Dose: 30 ml Meclizine HCl (Meclizine Hcl 25 Mg Tablet) 25 mg PO BID PRN PRN Reason: dizziness Last Admin: 06/06/24 12:01 Dose: 25 mg Mirtazapine (Mirtazapine 15 Mg Tablet) 15 mg PO BEDTIME [facility] Last Admin: 06/09/24 21:14 Dose: 15 mg Olanzapine (Olanzapine 2.5 Mg Tablet) 2.5 mg PO DAILY PRN PRN Reason: Anxiety Olanzapine (Olanzapine 2.5 Mg Tablet) 2.5 mg PO BEDTIME [facility] Last Admin: 06/09/24 21:14 Dose: 2.5 mg Omeprazole (Omeprazole 20 Mg Capsule.Dr) 20 mg PO DAILY@0630 [facility] Last Admin: 06/10/24 05:53 Dose: 20 mg Ondansetron HCl (Ondansetron Odt 4 Mg Tab.Rapdis) 4 mg TRANSLINGU Q8H PRN PRN Reason: nausea and vomiting Trazodone HCl (Trazodone Hcl 50 Mg Tablet) 50 mg PO BEDTIME MRX1 PRN PRN Reason: Insomnia Last Admin: 05/31/24 20:36 Dose: 50 mg Allergies Allergies Allergy/AdvReac Type Severity Reaction Status Date / Time Penicillins AdvReac Diarrhea Verified 05/22/24 10:34 Assessment & Plan Assessment & Plan (1) Mood disorder: Status: Acute Code(s): F39 - Unspecified mood [affective] disorder (2) Hypothyroid: Qualifiers: 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 She walked into the emergency room after she overdosed on alprazolam. She has several psychosocial stressors such as unstable housing, limited social support and she is a very poor historian. Plan 1. Gather collateral information. 2. Keep on 15 minute checks since the patient is able to contract for safety. 3. Continue with medical workout. 4. Continue with Zyprexa as per medication reconciliation form. Later on we lowered Zyprexa to 2.5 mg p.o. q.h.s. since she reports over-sedation. 5. We will start a low dose of mirtazapine to target depression 6. We tried to cross taper her from Xanax to Klonopin but she remains anxious with some withdrawal symptoms so we are keeping now back on Xanax 0.5 p.o. t.i.d. 7. Gabapentin 100 mg p.o. t.i.d. to target anxiety, we will will check if she gets over-sedated. Reason for continued inpatient stay Substantial Risk for: inability to function, rapid decompensation and med/psych decompensation Time Spent With Patient Time: Total time managing care of this patient today __20__ minutes.
[2024-06-10 20:00] VITALS: BP 114/57; PULSE 93; RESP 15; TEMP 36.2; O2SAT 94
[2024-06-10] MEDS: OLANZapine 2.5 MG TABLET PO (20:15)
[2024-06-10] MEDS: Mirtazapine 15 MG TABLET PO (20:15)
[2024-06-11] MEDS: Omeprazole 20 MG CAPSULE.DR PO (06:26)
[2024-06-11] MEDS: Levothyroxine Sodium 75 MCG TABLET PO (06:26)
[2024-06-11 08:00] VITALS: BP 129/64; PULSE 73; RESP 18; TEMP 36.8; O2SAT 93
[2024-06-11 09:20] VITALS: BP 129/64; PULSE 73; RESP 19; TEMP 36.8; O2SAT 94
[2024-06-11] MEDS: Gabapentin 100 MG CAPSULE PO ×3 (10:20→21:25)
[2024-06-11] MEDS: ALPRAZolam 0.5 MG TABLET PO ×3 (10:20→21:25)
--- NOTE | 2024-06-11 16:38 | HO.PSYCHPN ---
Subjective Subjective Date of Service: 06/11/24 Reason For Visit: Unspecified Depressive DO Interim History: no questions or complaints. per staff, dep 07/21. slept 8 hours. taking meds. Mental Status Exam Mental Status Exam Patient Appearance: Appropriate Patient Orientation: Person and Situation Level of Consciousness: Awake and Appropriate Patient Behavior: Guarded and Passive Mood Description: Withdrawn Affect Description: Constricted Patient Cognition Impaired: Yes Ability to Follow Directions: Good Speech Pattern: Clear Hallucinations: None Delusions: Ideas of Reference Thought Process: Distracted and Slowed Thinking Thought Content: positive for [place] and positive for Poverty of Content Judgement: Fair Diagnostics Vital Signs (24Hr): Vital Signs - 24 hr 06/10/24 20:00 06/11/24 08:00 06/11/24 09:20 Temperature 97.1 F 98.3 F 98.3 F Pulse Rate 93 73 73 Respiratory Rate 15 18 19 Blood Pressure 114/57 L 129/64 129/64 Pulse Oximetry 94 93 94 Oxygen Delivery Method Room Air Room Air Room Air BMI result Body Mass Index 24.7 Labs 06/07/24 14:49 06/07/24 14:49 Medications Medications Current Medications Acetaminophen (Acetaminophen 325 Mg Tablet) 650 mg PO Q6H PRN PRN Reason: Headache/Pain, Scale 1-10 Al Hydroxide/Mg Hydroxide (Magnesium Hydrox/Alum Hydrox 30 Ml Oral.Susp) 30 ml PO Q6H PRN PRN Reason: Heartburn/Nausea Alprazolam (Alprazolam 0.5 Mg Tablet) 0.5 mg PO TID [facility] Last Admin: 06/11/24 15:04 Dose: 0.5 mg Gabapentin (Gabapentin 100 Mg Capsule) 100 mg PO TID [facility] Last Admin: 06/11/24 15:04 Dose: 100 mg Hydroxyzine HCl (Hydroxyzine Hcl 25 Mg Tablet) 25 mg PO Q6H PRN PRN Reason: mild anxiety Last Admin: 06/03/24 02:11 Dose: 25 mg Levothyroxine Sodium (Levothyroxine Sodium 75 Mcg Tablet) 75 mcg PO DAILY@0630 [facility] Last Admin: 06/11/24 06:26 Dose: 75 mcg Magnesium Hydroxide (Milk Of Magnesia 30 Ml Oral.Susp) 30 ml PO DAILY PRN PRN Reason: Constipation Last Admin: 06/03/24 02:12 Dose: 30 ml Meclizine HCl (Meclizine Hcl 25 Mg Tablet) 25 mg PO BID PRN PRN Reason: dizziness Last Admin: 06/06/24 12:01 Dose: 25 mg Mirtazapine (Mirtazapine 15 Mg Tablet) 15 mg PO BEDTIME [facility] Last Admin: 06/10/24 20:15 Dose: 15 mg Olanzapine (Olanzapine 2.5 Mg Tablet) 2.5 mg PO DAILY PRN PRN Reason: Anxiety Olanzapine (Olanzapine 2.5 Mg Tablet) 2.5 mg PO BEDTIME [facility] Last Admin: 06/10/24 20:15 Dose: 2.5 mg Omeprazole (Omeprazole 20 Mg Capsule.Dr) 20 mg PO DAILY@0630 [facility] Last Admin: 06/11/24 06:26 Dose: 20 mg Ondansetron HCl (Ondansetron Odt 4 Mg Tab.Rapdis) 4 mg TRANSLINGU Q8H PRN PRN Reason: nausea and vomiting Trazodone HCl (Trazodone Hcl 50 Mg Tablet) 50 mg PO BEDTIME MRX1 PRN PRN Reason: Insomnia Last Admin: 05/31/24 20:36 Dose: 50 mg Allergies Allergies Allergy/AdvReac Type Severity Reaction Status Date / Time Penicillins AdvReac Diarrhea Verified 05/22/24 10:34 Assessment & Plan Assessment & Plan (1) Mood disorder: Status: Acute Code(s): F39 - Unspecified mood [affective] disorder (2) Hypothyroid: Qualifiers: 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 She walked into the emergency room after she overdosed on alprazolam. She has several psychosocial stressors such as unstable housing, limited social support and she is a very poor historian. Plan 1. Gather collateral information. 2. Keep on 15 minute checks since the patient is able to contract for safety. 3. Continue with medical workout. 4. Continue with Zyprexa as per medication reconciliation form. Later on we lowered Zyprexa to 2.5 mg p.o. q.h.s. since she reports over-sedation. 5. We will start a low dose of mirtazapine to target depression 6. We tried to cross taper her from Xanax to Klonopin but she remains anxious with some withdrawal symptoms so we are keeping now back on Xanax 0.5 p.o. t.i.d. 7. Gabapentin 100 mg p.o. t.i.d. to target anxiety, we will will check if she gets over-sedated. Reason for continued inpatient stay Substantial Risk for: harm to self Time Spent With Patient Time: Total time managing care of this patient today ____ minutes.
[2024-06-11 20:00] VITALS: BP 125/83; PULSE 70; RESP 16; TEMP 36.1; O2SAT 97
[2024-06-11] MEDS: Mirtazapine 15 MG TABLET PO (21:25)
[2024-06-11] MEDS: OLANZapine 2.5 MG TABLET PO (21:25)
[2024-06-12] MEDS: Omeprazole 20 MG CAPSULE.DR PO (06:27)
[2024-06-12] MEDS: Levothyroxine Sodium 75 MCG TABLET PO (06:27)
[2024-06-12] MEDS: Gabapentin 100 MG CAPSULE PO ×3 (09:03→20:33)
[2024-06-12] MEDS: ALPRAZolam 0.5 MG TABLET PO ×3 (09:03→20:33)
[2024-06-12 09:04] VITALS: BP 133/61; PULSE 85; RESP 17; TEMP 36.2; O2SAT 97
--- NOTE | 2024-06-12 12:31 | HO.PSYCHPN ---
Subjective Subjective Date of Service: 06/12/24 Reason For Visit: Unspecified Depressive DO Interim History: reports disturbed sleep last night due to roommate's being transferred out and getting a new roommate. reports feeling sleepy presently, napping. no complaints or requests otherwise. per staff, slept overnight. no change in presentation. some anxiety and depression. Mental Status Exam Mental Status Exam Patient Appearance: Appropriate Patient Orientation: Person and Situation Level of Consciousness: Drowsy Patient Behavior: Guarded and Passive Mood Description: Withdrawn Affect Description: Constricted Patient Cognition Impaired: Yes Ability to Follow Directions: Good Speech Pattern: Clear Hallucinations: None Delusions: Ideas of Reference Thought Process: Distracted and Slowed Thinking Thought Content: positive for [place] and positive for Poverty of Content Judgement: Fair Diagnostics Vital Signs (24Hr): Vital Signs - 24 hr 06/11/24 20:00 06/12/24 09:04 Temperature 97 F 97.1 F Pulse Rate 70 85 Respiratory Rate 16 17 Blood Pressure 125/83 133/61 Pulse Oximetry 97 97 Oxygen Delivery Method Room Air Room Air BMI result Body Mass Index 24.7 Labs 06/07/24 14:49 06/07/24 14:49 Medications Medications Current Medications Acetaminophen (Acetaminophen 325 Mg Tablet) 650 mg PO Q6H PRN PRN Reason: Headache/Pain, Scale 1-10 Al Hydroxide/Mg Hydroxide (Magnesium Hydrox/Alum Hydrox 30 Ml Oral.Susp) 30 ml PO Q6H PRN PRN Reason: Heartburn/Nausea Alprazolam (Alprazolam 0.5 Mg Tablet) 0.5 mg PO TID [facility] Last Admin: 06/12/24 09:03 Dose: 0.5 mg Gabapentin (Gabapentin 100 Mg Capsule) 100 mg PO TID [facility] Last Admin: 06/12/24 09:03 Dose: 100 mg Hydroxyzine HCl (Hydroxyzine Hcl 25 Mg Tablet) 25 mg PO Q6H PRN PRN Reason: mild anxiety Last Admin: 06/03/24 02:11 Dose: 25 mg Levothyroxine Sodium (Levothyroxine Sodium 75 Mcg Tablet) 75 mcg PO DAILY@0630 [facility] Last Admin: 06/12/24 06:27 Dose: 75 mcg Magnesium Hydroxide (Milk Of Magnesia 30 Ml Oral.Susp) 30 ml PO DAILY PRN PRN Reason: Constipation Last Admin: 06/03/24 02:12 Dose: 30 ml Meclizine HCl (Meclizine Hcl 25 Mg Tablet) 25 mg PO BID PRN PRN Reason: dizziness Last Admin: 06/06/24 12:01 Dose: 25 mg Mirtazapine (Mirtazapine 15 Mg Tablet) 15 mg PO BEDTIME [facility] Last Admin: 06/11/24 21:25 Dose: 15 mg Olanzapine (Olanzapine 2.5 Mg Tablet) 2.5 mg PO DAILY PRN PRN Reason: Anxiety Olanzapine (Olanzapine 2.5 Mg Tablet) 2.5 mg PO BEDTIME [facility] Last Admin: 06/11/24 21:25 Dose: 2.5 mg Omeprazole (Omeprazole 20 Mg Capsule.Dr) 20 mg PO DAILY@0630 [facility] Last Admin: 06/12/24 06:27 Dose: 20 mg Ondansetron HCl (Ondansetron Odt 4 Mg Tab.Rapdis) 4 mg TRANSLINGU Q8H PRN PRN Reason: nausea and vomiting Trazodone HCl (Trazodone Hcl 50 Mg Tablet) 50 mg PO BEDTIME MRX1 PRN PRN Reason: Insomnia Last Admin: 05/31/24 20:36 Dose: 50 mg Allergies Allergies Allergy/AdvReac Type Severity Reaction Status Date / Time Penicillins AdvReac Diarrhea Verified 05/22/24 10:34 Assessment & Plan Assessment & Plan (1) Mood disorder: Status: Acute Code(s): F39 - Unspecified mood [affective] disorder (2) Hypothyroid: Qualifiers: 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 She walked into the emergency room after she overdosed on alprazolam. She has several psychosocial stressors such as unstable housing, limited social support and she is a very poor historian. Plan 1. Gather collateral information. 2. Keep on 15 minute checks since the patient is able to contract for safety. 3. Continue with medical workout. 4. Continue with Zyprexa as per medication reconciliation form. Later on we lowered Zyprexa to 2.5 mg p.o. q.h.s. since she reports over-sedation. 5. We will start a low dose of mirtazapine to target depression 6. We tried to cross taper her from Xanax to Klonopin but she remains anxious with some withdrawal symptoms so we are keeping now back on Xanax 0.5 p.o. t.i.d. 7. Gabapentin 100 mg p.o. t.i.d. to target anxiety, we will will check if she gets over-sedated. Reason for continued inpatient stay Substantial Risk for: inability to function Time Spent With Patient Time: Total time managing care of this patient today ____ minutes.
[2024-06-12 20:00] VITALS: BP 128/60; PULSE 70; RESP 16; TEMP 36.3; O2SAT 97
[2024-06-12] MEDS: Mirtazapine 15 MG TABLET PO (20:33)
[2024-06-12] MEDS: OLANZapine 2.5 MG TABLET PO (20:33)
[2024-06-13] MEDS: Omeprazole 20 MG CAPSULE.DR PO (06:16)
[2024-06-13] MEDS: Levothyroxine Sodium 75 MCG TABLET PO (06:16)
[2024-06-13 07:48] VITALS: BP 130/67; PULSE 67; RESP 18; TEMP 36.4; O2SAT 98
[2024-06-13] MEDS: Gabapentin 100 MG CAPSULE PO ×2 (08:42→20:20)
[2024-06-13] MEDS: ALPRAZolam 0.5 MG TABLET PO ×3 (08:42→20:20)
--- NOTE | 2024-06-13 11:20 | P.PNPSI_ITS ---
Subjective Subjective Date of Service: 06/13/24 Reason For Visit: Unspecified Depressive DO Subjective Notes: Conditional Voluntary Interim History: The nursing staff reported the patient had been over-sedated with gabapentin. Her affect is more relaxed slept 8 hours. The social work specialist reported she was referred to long-term facility. On interview the patient reports that she feels over-sedated with gabapentin she agreed to lowered to 100 mg in the afternoon and bedtime. Mental Status Exam Mental Status Exam Patient Appearance: Appropriate Patient Orientation: Person and Situation Level of Consciousness: Awake and Appropriate Patient Behavior: Guarded and Passive Mood Description: Withdrawn Affect Description: Constricted Patient Cognition Impaired: Yes Ability to Follow Directions: Good Speech Pattern: Clear Hallucinations: None Delusions: Not Present Thought Process: Distracted and Slowed Thinking Thought Content: positive for [place] and positive for Circumstantial Judgement: Fair Diagnostics Vital Signs (24Hr): Vital Signs - 24 hr 06/12/24 20:00 06/13/24 07:48 Temperature 97.3 F 97.5 F Pulse Rate 70 67 Respiratory Rate 16 18 Blood Pressure 128/60 130/67 Pulse Oximetry 97 98 Oxygen Delivery Method Room Air Room Air BMI result Body Mass Index 24.7 Labs 06/07/24 14:49 06/07/24 14:49 Medications Medications Current Medications Acetaminophen (Acetaminophen 325 Mg Tablet) 650 mg PO Q6H PRN PRN Reason: Headache/Pain, Scale 1-10 Al Hydroxide/Mg Hydroxide (Magnesium Hydrox/Alum Hydrox 30 Ml Oral.Susp) 30 ml PO Q6H PRN PRN Reason: Heartburn/Nausea Alprazolam (Alprazolam 0.5 Mg Tablet) 0.5 mg PO TID [facility] Last Admin: 06/13/24 08:42 Dose: 0.5 mg Gabapentin (Gabapentin 100 Mg Capsule) 100 mg PO DAILY@1230 [facility] Gabapentin (Gabapentin 100 Mg Capsule) 100 mg PO BEDTIME [facility] Hydroxyzine HCl (Hydroxyzine Hcl 25 Mg Tablet) 25 mg PO Q6H PRN PRN Reason: mild anxiety Last Admin: 06/03/24 02:11 Dose: 25 mg Levothyroxine Sodium (Levothyroxine Sodium 75 Mcg Tablet) 75 mcg PO DAILY@0630 [facility] Last Admin: 06/13/24 06:16 Dose: 75 mcg Magnesium Hydroxide (Milk Of Magnesia 30 Ml Oral.Susp) 30 ml PO DAILY PRN PRN Reason: Constipation Last Admin: 06/03/24 02:12 Dose: 30 ml Meclizine HCl (Meclizine Hcl 25 Mg Tablet) 25 mg PO BID PRN PRN Reason: dizziness Last Admin: 06/06/24 12:01 Dose: 25 mg Mirtazapine (Mirtazapine 15 Mg Tablet) 15 mg PO BEDTIME [facility] Last Admin: 06/12/24 20:33 Dose: 15 mg Olanzapine (Olanzapine 2.5 Mg Tablet) 2.5 mg PO DAILY PRN PRN Reason: Anxiety Olanzapine (Olanzapine 2.5 Mg Tablet) 2.5 mg PO BEDTIME [facility] Last Admin: 06/12/24 20:33 Dose: 2.5 mg Omeprazole (Omeprazole 20 Mg Capsule.Dr) 20 mg PO DAILY@0630 [facility] Last Admin: 06/13/24 06:16 Dose: 20 mg Ondansetron HCl (Ondansetron Odt 4 Mg Tab.Rapdis) 4 mg TRANSLINGU Q8H PRN PRN Reason: nausea and vomiting Trazodone HCl (Trazodone Hcl 50 Mg Tablet) 50 mg PO BEDTIME MRX1 PRN PRN Reason: Insomnia Last Admin: 05/31/24 20:36 Dose: 50 mg Allergies Allergies Allergy/AdvReac Type Severity Reaction Status Date / Time Penicillins AdvReac Diarrhea Verified 05/22/24 10:34 Assessment & Plan Assessment & Plan (1) Mood disorder: Status: Acute Code(s): F39 - Unspecified mood [affective] disorder (2) Hypothyroid: Qualifiers: 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 She walked into the emergency room after she overdosed on alprazolam. She has several psychosocial stressors such as unstable housing, limited social support and she is a very poor historian. Plan 1. Gather collateral information. 2. Keep on 15 minute checks since the patient is able to contract for safety. 3. Continue with medical workout. 4. Continue with Zyprexa as per medication reconciliation form. Later on we lowered Zyprexa to 2.5 mg p.o. q.h.s. since she reports over-sedation. 5. We will start a low dose of mirtazapine to target depression 6. We tried to cross taper her from Xanax to Klonopin but she remains anxious with some withdrawal symptoms so we are keeping now back on Xanax 0.5 p.o. t.i.d. 7. Gabapentin 100 mg p.o. t.i.d. to target anxiety, we will will check if she gets over-sedated. On June 13 we are lowering gabapentin 100 mg p.o. b.i.d. since she has over-sedated Reason for continued inpatient stay Substantial Risk for: inability to function, rapid decompensation and med/psych decompensation Time Spent With Patient Time: Total time managing care of this patient today _20___ minutes.
[2024-06-13 19:50] VITALS: BP 108/54; PULSE 75; RESP 18; TEMP 36.6; O2SAT 97
[2024-06-13] MEDS: OLANZapine 2.5 MG TABLET PO (20:20)
[2024-06-13] MEDS: Mirtazapine 15 MG TABLET PO (20:20)
[2024-06-14] MEDS: Omeprazole 20 MG CAPSULE.DR PO (06:14)
[2024-06-14] MEDS: Levothyroxine Sodium 75 MCG TABLET PO (06:14)
[2024-06-14 08:00] VITALS: BP 157/69; PULSE 78; RESP 16; O2SAT 98
[2024-06-14] MEDS: ALPRAZolam 0.5 MG TABLET PO ×3 (08:25→20:36)
--- NOTE | 2024-06-14 10:29 | P.PNPSI_ITS ---
Subjective Subjective Date of Service: 06/14/24 Reason For Visit: Unspecified Depressive DO Subjective Notes: Conditional Voluntary Interim History: Nursing staff reported that yesterday the patient complained over-sedation from his medications. She slept 6 hours. The social worker school reported that the family noticed that the patient has enough funding for an assisted living facility, [facility] interested. On interview the patient reports that her over-sedation has improved since we lowered her dose of gabapentin. Mental Status Exam Mental Status Exam Patient Appearance: Appropriate Patient Orientation: Person Level of Consciousness: Awake and Appropriate Patient Behavior: Guarded and Passive Mood Description: Calm Affect Description: Constricted Patient Cognition Impaired: Yes Ability to Follow Directions: Good Speech Pattern: Clear Hallucinations: None Delusions: Not Present Thought Process: Distracted and Slowed Thinking Thought Content: positive for [place] and positive for Poverty of Content Judgement: Fair Diagnostics Vital Signs (24Hr): Vital Signs - 24 hr 06/13/24 19:50 Temperature 97.8 F Pulse Rate 75 Respiratory Rate 18 Blood Pressure 108/54 L Pulse Oximetry 97 Oxygen Delivery Method Room Air BMI result Body Mass Index 24.7 Labs 06/07/24 14:49 06/07/24 14:49 Medications Medications Current Medications Acetaminophen (Acetaminophen 325 Mg Tablet) 650 mg PO Q6H PRN PRN Reason: Headache/Pain, Scale 1-10 Al Hydroxide/Mg Hydroxide (Magnesium Hydrox/Alum Hydrox 30 Ml Oral.Susp) 30 ml PO Q6H PRN PRN Reason: Heartburn/Nausea Alprazolam (Alprazolam 0.5 Mg Tablet) 0.5 mg PO TID [facility] Last Admin: 06/14/24 08:25 Dose: 0.5 mg Gabapentin (Gabapentin 100 Mg Capsule) 100 mg PO DAILY@1230 [facility] Last Admin: 06/13/24 14:40 Dose: Not Given Gabapentin (Gabapentin 100 Mg Capsule) 100 mg PO BEDTIME [facility] Last Admin: 06/13/24 20:20 Dose: 100 mg Hydroxyzine HCl (Hydroxyzine Hcl 25 Mg Tablet) 25 mg PO Q6H PRN PRN Reason: mild anxiety Last Admin: 06/03/24 02:11 Dose: 25 mg Levothyroxine Sodium (Levothyroxine Sodium 75 Mcg Tablet) 75 mcg PO DAILY@0630 [facility] Last Admin: 06/14/24 06:14 Dose: 75 mcg Magnesium Hydroxide (Milk Of Magnesia 30 Ml Oral.Susp) 30 ml PO DAILY PRN PRN Reason: Constipation Last Admin: 06/03/24 02:12 Dose: 30 ml Meclizine HCl (Meclizine Hcl 25 Mg Tablet) 25 mg PO BID PRN PRN Reason: dizziness Last Admin: 06/06/24 12:01 Dose: 25 mg Mirtazapine (Mirtazapine 15 Mg Tablet) 15 mg PO BEDTIME [facility] Last Admin: 06/13/24 20:20 Dose: 15 mg Olanzapine (Olanzapine 2.5 Mg Tablet) 2.5 mg PO DAILY PRN PRN Reason: Anxiety Olanzapine (Olanzapine 2.5 Mg Tablet) 2.5 mg PO BEDTIME [facility] Last Admin: 06/13/24 20:20 Dose: 2.5 mg Omeprazole (Omeprazole 20 Mg Capsule.Dr) 20 mg PO DAILY@0630 [facility] Last Admin: 06/14/24 06:14 Dose: 20 mg Ondansetron HCl (Ondansetron Odt 4 Mg Tab.Rapdis) 4 mg TRANSLINGU Q8H PRN PRN Reason: nausea and vomiting Trazodone HCl (Trazodone Hcl 50 Mg Tablet) 50 mg PO BEDTIME MRX1 PRN PRN Reason: Insomnia Last Admin: 05/31/24 20:36 Dose: 50 mg Allergies Allergies Allergy/AdvReac Type Severity Reaction Status Date / Time Penicillins AdvReac Diarrhea Verified 05/22/24 10:34 Assessment & Plan Assessment & Plan (1) Mood disorder: Status: Acute Code(s): F39 - Unspecified mood [affective] disorder (2) Hypothyroid: Qualifiers: 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 She walked into the emergency room after she overdosed on alprazolam. She has several psychosocial stressors such as unstable housing, limited social support and she is a very poor historian. Plan 1. Gather collateral information. 2. Keep on 15 minute checks since the patient is able to contract for safety. 3. Continue with medical workout. 4. Continue with Zyprexa as per medication reconciliation form. Later on we lowered Zyprexa to 2.5 mg p.o. q.h.s. since she reports over-sedation. 5. We will start a low dose of mirtazapine to target depression 6. We tried to cross taper her from Xanax to Klonopin but she remains anxious with some withdrawal symptoms so we are keeping now back on Xanax 0.5 p.o. t.i.d. 7. Gabapentin 100 mg p.o. t.i.d. to target anxiety, we will will check if she gets over-sedated. On June 13 we are lowering gabapentin 100 mg p.o. b.i.d. since she has over-sedated Reason for continued inpatient stay Substantial Risk for: inability to function, rapid decompensation and med/psych decompensation Time Spent With Patient Time: Total time managing care of this patient today __20__ minutes.
[2024-06-14] MEDS: Gabapentin 100 MG CAPSULE PO ×2 (11:52→20:36)
[2024-06-14 20:00] VITALS: BP 110/60; PULSE 86; RESP 16; TEMP 36.2; O2SAT 95
[2024-06-14] MEDS: OLANZapine 2.5 MG TABLET PO (20:36)
[2024-06-14] MEDS: Mirtazapine 15 MG TABLET PO (20:36)
[2024-06-15] MEDS: Omeprazole 20 MG CAPSULE.DR PO (05:44)
[2024-06-15] MEDS: Levothyroxine Sodium 75 MCG TABLET PO (05:45)
[2024-06-15 09:05] VITALS: BP 119/59; RESP 20; TEMP 36.1; O2SAT 95
[2024-06-15] MEDS: ALPRAZolam 0.5 MG TABLET PO ×3 (09:07→19:42)
--- NOTE | 2024-06-15 09:44 | P.PNPSI_ITS ---
Subjective Subjective Date of Service: 06/15/24 Reason For Visit: Unspecified Depressive DO Subjective Notes: Conditional Voluntary Interim History: The nursing staff reported has flat affect but good appetite pleasant on approach she slept 8 hours. She reports mild over-sedation with the gabapentin. The occupational therapist police reported that she had been participating in groups. On interview the patient reported that she has mild sedation but she is doing overall much better with her anxiety she looks more stable. She agreed to continue gabapentin at this low dose. Mental Status Exam Mental Status Exam Patient Appearance: Appropriate Patient Orientation: Person and Situation Level of Consciousness: Awake and Appropriate Patient Behavior: Guarded and Passive Mood Description: Withdrawn Affect Description: Constricted Patient Cognition Impaired: Yes Ability to Follow Directions: Good Speech Pattern: Clear Hallucinations: None Delusions: Ideas of Reference Thought Process: Distracted and Slowed Thinking Thought Content: positive for [place] and positive for Poverty of Content Judgement: Fair Diagnostics Vital Signs (24Hr): Vital Signs - 24 hr 06/14/24 20:00 06/15/24 09:05 Temperature 97.1 F 96.9 F Pulse Rate 86 Respiratory Rate 16 20 Blood Pressure 110/60 119/59 L Pulse Oximetry 95 95 Oxygen Delivery Method Room Air Room Air BMI result Body Mass Index 24.7 Labs 06/07/24 14:49 06/07/24 14:49 Medications Medications Current Medications Acetaminophen (Acetaminophen 325 Mg Tablet) 650 mg PO Q6H PRN PRN Reason: Headache/Pain, Scale 1-10 Al Hydroxide/Mg Hydroxide (Magnesium Hydrox/Alum Hydrox 30 Ml Oral.Susp) 30 ml PO Q6H PRN PRN Reason: Heartburn/Nausea Alprazolam (Alprazolam 0.5 Mg Tablet) 0.5 mg PO TID [facility] Last Admin: 06/15/24 09:07 Dose: 0.5 mg Gabapentin (Gabapentin 100 Mg Capsule) 100 mg PO DAILY@1230 [facility] Last Admin: 06/14/24 11:52 Dose: 100 mg Gabapentin (Gabapentin 100 Mg Capsule) 100 mg PO BEDTIME [facility] Last Admin: 06/14/24 20:36 Dose: 100 mg Hydroxyzine HCl (Hydroxyzine Hcl 25 Mg Tablet) 25 mg PO Q6H PRN PRN Reason: mild anxiety Last Admin: 06/03/24 02:11 Dose: 25 mg Levothyroxine Sodium (Levothyroxine Sodium 75 Mcg Tablet) 75 mcg PO DAILY@0630 [facility] Last Admin: 06/15/24 05:45 Dose: 75 mcg Magnesium Hydroxide (Milk Of Magnesia 30 Ml Oral.Susp) 30 ml PO DAILY PRN PRN Reason: Constipation Last Admin: 06/03/24 02:12 Dose: 30 ml Meclizine HCl (Meclizine Hcl 25 Mg Tablet) 25 mg PO BID PRN PRN Reason: dizziness Last Admin: 06/06/24 12:01 Dose: 25 mg Mirtazapine (Mirtazapine 15 Mg Tablet) 15 mg PO BEDTIME [facility] Last Admin: 06/14/24 20:36 Dose: 15 mg Olanzapine (Olanzapine 2.5 Mg Tablet) 2.5 mg PO DAILY PRN PRN Reason: Anxiety Olanzapine (Olanzapine 2.5 Mg Tablet) 2.5 mg PO BEDTIME [facility] Last Admin: 06/14/24 20:36 Dose: 2.5 mg Omeprazole (Omeprazole 20 Mg Capsule.Dr) 20 mg PO DAILY@629 [facility] Last Admin: 06/15/24 05:44 Dose: 20 mg Ondansetron HCl (Ondansetron Odt 4 Mg Tab.Rapdis) 4 mg TRANSLINGU Q8H PRN PRN Reason: nausea and vomiting Trazodone HCl (Trazodone Hcl 50 Mg Tablet) 50 mg PO BEDTIME MRX1 PRN PRN Reason: Insomnia Last Admin: 05/31/24 20:36 Dose: 50 mg Allergies Allergies Allergy/AdvReac Type Severity Reaction Status Date / Time Penicillins AdvReac Diarrhea Verified 05/22/24 10:34 Assessment & Plan Assessment & Plan (1) Mood disorder: Status: Acute Code(s): F39 - Unspecified mood [affective] disorder (2) Hypothyroid: Qualifiers: 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 She walked into the emergency room after she overdosed on alprazolam. She has several psychosocial stressors such as unstable housing, limited social support and she is a very poor historian. Plan 1. Gather collateral information. 2. Keep on 15 minute checks since the patient is able to contract for safety. 3. Continue with medical workout. 4. Continue with Zyprexa as per medication reconciliation form. Later on we lowered Zyprexa to 2.5 mg p.o. q.h.s. since she reports over-sedation. 5. We will start a low dose of mirtazapine to target depression 6. We tried to cross taper her from Xanax to Klonopin but she remains anxious with some withdrawal symptoms so we are keeping now back on Xanax 0.5 p.o. t.i.d. 7. Gabapentin 100 mg p.o. t.i.d. to target anxiety, we will will check if she gets over-sedated. On June 13 we are lowering gabapentin 100 mg p.o. b.i.d. since she was over-sedated. Reason for continued inpatient stay Substantial Risk for: inability to function, rapid decompensation and med/psych decompensation Time Spent With Patient Time: Total time managing care of this patient today _20___ minutes.
[2024-06-15] MEDS: Gabapentin 100 MG CAPSULE PO ×2 (13:21→19:43)
[2024-06-15] MEDS: Mirtazapine 15 MG TABLET PO (19:42)
[2024-06-15] MEDS: OLANZapine 2.5 MG TABLET PO (19:42)
[2024-06-15] MEDS: traZODone HCL 50 MG TABLET PO (19:42)
[2024-06-15 20:00] VITALS: BP 159/55; PULSE 76; RESP 16; TEMP 36.6; O2SAT 94
[2024-06-16] MEDS: Levothyroxine Sodium 75 MCG TABLET PO (05:56)
[2024-06-16] MEDS: Omeprazole 20 MG CAPSULE.DR PO (05:56)
[2024-06-16 08:00] VITALS: BP 134/68; PULSE 86; RESP 16; TEMP 36.3; O2SAT 95
[2024-06-16] MEDS: ALPRAZolam 0.5 MG TABLET PO ×3 (08:53→19:46)
[2024-06-16 10:03] VITALS: BMI 25.1
--- NOTE | 2024-06-16 14:38 | HO.PSYCHPN ---
Subjective Subjective Date of Service: 06/16/24 Reason For Visit: Unspecified Depressive DO Interim History: calm, pleasant, intense. concerned about balancing anxiolysis and sedation with xanax and gabapentin dosing. agreeable to decrease morning xanax while restarting morning gabapentin dosing, change 1230 pm reji dosing to 1500 time with xanax 0.5 mg. c/o loose stools, agreeable to add bulking agent. per staff, pleasant. no behavioral concerns. slept 8 hours. not very social. but stable. eating well. Mental Status Exam Mental Status Exam Patient Appearance: Appropriate Patient Orientation: Person and Situation Level of Consciousness: Awake and Appropriate Patient Behavior: Guarded and Passive Mood Description: Withdrawn Affect Description: Constricted Patient Cognition Impaired: Yes Ability to Follow Directions: Good Speech Pattern: Clear Hallucinations: None Delusions: Ideas of Reference Thought Process: Distracted and Slowed Thinking Thought Content: positive for [place] and positive for Poverty of Content Judgement: Fair Diagnostics Vital Signs (24Hr): Vital Signs - 24 hr 06/15/24 20:00 06/16/24 08:00 Temperature 97.9 F 97.3 F Pulse Rate 76 86 Respiratory Rate 16 16 Blood Pressure 159/55 H 134/68 Pulse Oximetry 94 95 Oxygen Delivery Method Room Air Room Air BMI result Body Mass Index 25.1 Labs 06/07/24 14:49 06/07/24 14:49 Medications Medications Current Medications Acetaminophen (Acetaminophen 325 Mg Tablet) 650 mg PO Q6H PRN PRN Reason: Headache/Pain, Scale 1-10 Al Hydroxide/Mg Hydroxide (Magnesium Hydrox/Alum Hydrox 30 Ml Oral.Susp) 30 ml PO Q6H PRN PRN Reason: Heartburn/Nausea Alprazolam (Alprazolam 0.5 Mg Tablet) 0.5 mg PO BID@1500,2100 [facility] Alprazolam (Alprazolam 0.25 Mg Tablet) 0.25 mg PO DAILY [facility] Docusate Sodium (Docusate Sodium 100 Mg Capsule) 100 mg PO BEDTIME [facility] Gabapentin (Gabapentin 100 Mg Capsule) 100 mg PO TID [facility] Hydroxyzine HCl (Hydroxyzine Hcl 25 Mg Tablet) 25 mg PO Q6H PRN PRN Reason: mild anxiety Last Admin: 06/03/24 02:11 Dose: 25 mg Levothyroxine Sodium (Levothyroxine Sodium 75 Mcg Tablet) 75 mcg PO DAILY@0630 [facility] Last Admin: 06/16/24 05:56 Dose: 75 mcg Magnesium Hydroxide (Milk Of Magnesia 30 Ml Oral.Susp) 30 ml PO DAILY PRN PRN Reason: Constipation Last Admin: 06/03/24 02:12 Dose: 30 ml Meclizine HCl (Meclizine Hcl 25 Mg Tablet) 25 mg PO BID PRN PRN Reason: dizziness Last Admin: 06/06/24 12:01 Dose: 25 mg Mirtazapine (Mirtazapine 15 Mg Tablet) 15 mg PO BEDTIME [facility] Last Admin: 06/15/24 19:42 Dose: 15 mg Olanzapine (Olanzapine 2.5 Mg Tablet) 2.5 mg PO DAILY PRN PRN Reason: Anxiety Olanzapine (Olanzapine 2.5 Mg Tablet) 2.5 mg PO BEDTIME [facility] Last Admin: 06/15/24 19:42 Dose: 2.5 mg Omeprazole (Omeprazole 20 Mg Capsule.Dr) 20 mg PO DAILY@629 [facility] Last Admin: 06/16/24 05:56 Dose: 20 mg Ondansetron HCl (Ondansetron Odt 4 Mg Tab.Rapdis) 4 mg TRANSLINGU Q8H PRN PRN Reason: nausea and vomiting Trazodone HCl (Trazodone Hcl 50 Mg Tablet) 50 mg PO BEDTIME MRX1 PRN PRN Reason: Insomnia Last Admin: 06/15/24 19:42 Dose: 50 mg Allergies Allergies Allergy/AdvReac Type Severity Reaction Status Date / Time Penicillins AdvReac Diarrhea Verified 05/22/24 10:34 Assessment & Plan Assessment & Plan (1) Mood disorder: Status: Acute Code(s): F39 - Unspecified mood [affective] disorder (2) Hypothyroid: Qualifiers: 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 She walked into the emergency room after she overdosed on alprazolam. She has several psychosocial stressors such as unstable housing, limited social support and she is a very poor historian. Plan 1. Gather collateral information. 2. Keep on 15 minute checks since the patient is able to contract for safety. 3. Continue with medical workout. 4. Continue with Zyprexa as per medication reconciliation form. Later on we lowered Zyprexa to 2.5 mg p.o. q.h.s. since she reports over-sedation. 5. We will start a low dose of mirtazapine to target depression 6. We tried to cross taper her from Xanax to Klonopin but she remains anxious with some withdrawal symptoms so we are keeping now back on Xanax 0.5 p.o. t.i.d. 7. Gabapentin 100 mg p.o. t.i.d. to target anxiety, we will will check if she gets over-sedated. On June 13 we are lowering gabapentin 100 mg p.o. b.i.d. since she was over-sedated. 06/16: c/o anxiety in morning, asks to reinstate TID gabapentin 100 mg and decrease morning xanax to 0.25 mg. also change midday gabapentin from 1230 to 1500. add colace 100 QHS. otherwise continue current mgmt. Reason for continued inpatient stay Substantial Risk for: inability to function Time Spent With Patient Time: Total time managing care of this patient today __25__ minutes.
[2024-06-16] MEDS: Gabapentin 100 MG CAPSULE PO ×2 (14:57→19:47)
[2024-06-16] MEDS: traZODone HCL 50 MG TABLET PO (19:46)
[2024-06-16] MEDS: Mirtazapine 15 MG TABLET PO (19:47)
[2024-06-16] MEDS: Docusate Sodium 100 MG CAPSULE PO (19:48)
[2024-06-16] MEDS: OLANZapine 2.5 MG TABLET PO (19:48)
[2024-06-16 20:00] VITALS: BP 112/56; PULSE 90; RESP 16; TEMP 36.1; O2SAT 92
[2024-06-17] MEDS: Omeprazole 20 MG CAPSULE.DR PO (06:28)
[2024-06-17] MEDS: Levothyroxine Sodium 75 MCG TABLET PO (06:28)
[2024-06-17 08:10] VITALS: BP 139/69; PULSE 79; RESP 16; TEMP 36.8; O2SAT 95
[2024-06-17] MEDS: ALPRAZolam 0.25 MG TABLET PO (08:10)
[2024-06-17] MEDS: Gabapentin 100 MG CAPSULE PO ×3 (08:11→20:16)
[2024-06-17] MEDS: Nystatin Powder 15 GM BOTTLE 1 APPL TOPICAL ×2 (11:01→20:18)
--- NOTE | 2024-06-17 12:36 | HO.PSYCHPN ---
Subjective Subjective Date of Service: 06/17/24 Reason For Visit: Unspecified Depressive DO Interim History: calm, pleasant, cooperative. no complaints or requests. reports she is not too sleepy with med change and anxiety is under control. Mental Status Exam Mental Status Exam Patient Appearance: Appropriate Patient Orientation: Person and Situation Level of Consciousness: Awake and Appropriate Patient Behavior: Guarded and Passive Mood Description: Withdrawn Affect Description: Constricted Patient Cognition Impaired: Yes Ability to Follow Directions: Good Speech Pattern: Clear Hallucinations: None Delusions: Ideas of Reference Thought Process: Distracted and Slowed Thinking Thought Content: positive for [place] and positive for Poverty of Content Judgement: Fair Diagnostics Vital Signs (24Hr): Vital Signs - 24 hr 06/16/24 20:00 06/17/24 08:10 Temperature 97 F 98.3 F Pulse Rate 90 79 Respiratory Rate 16 16 Blood Pressure 112/56 L 139/69 Pulse Oximetry 92 95 Oxygen Delivery Method Room Air Room Air BMI result Body Mass Index 25.1 Labs 06/07/24 14:49 06/07/24 14:49 Medications Medications Current Medications Acetaminophen (Acetaminophen 325 Mg Tablet) 650 mg PO Q6H PRN PRN Reason: Headache/Pain, Scale 1-10 Al Hydroxide/Mg Hydroxide (Magnesium Hydrox/Alum Hydrox 30 Ml Oral.Susp) 30 ml PO Q6H PRN PRN Reason: Heartburn/Nausea Alprazolam (Alprazolam 0.5 Mg Tablet) 0.5 mg PO BID@1500,2100 [facility] Last Admin: 06/16/24 19:46 Dose: 0.5 mg Alprazolam (Alprazolam 0.25 Mg Tablet) 0.25 mg PO DAILY [facility] Last Admin: 06/17/24 08:10 Dose: 0.25 mg Docusate Sodium (Docusate Sodium 100 Mg Capsule) 100 mg PO BEDTIME [facility] Last Admin: 06/16/24 19:48 Dose: 100 mg Gabapentin (Gabapentin 100 Mg Capsule) 100 mg PO TID [facility] Last Admin: 06/17/24 08:11 Dose: 100 mg Hydroxyzine HCl (Hydroxyzine Hcl 25 Mg Tablet) 25 mg PO Q6H PRN PRN Reason: mild anxiety Last Admin: 06/03/24 02:11 Dose: 25 mg Levothyroxine Sodium (Levothyroxine Sodium 75 Mcg Tablet) 75 mcg PO DAILY@0630 [facility] Last Admin: 06/17/24 06:28 Dose: 75 mcg Magnesium Hydroxide (Milk Of Magnesia 30 Ml Oral.Susp) 30 ml PO DAILY PRN PRN Reason: Constipation Last Admin: 06/03/24 02:12 Dose: 30 ml Meclizine HCl (Meclizine Hcl 25 Mg Tablet) 25 mg PO BID PRN PRN Reason: dizziness Last Admin: 06/06/24 12:01 Dose: 25 mg Mirtazapine (Mirtazapine 15 Mg Tablet) 15 mg PO BEDTIME [facility] Last Admin: 06/16/24 19:47 Dose: 15 mg Nystatin (Nystatin Powder 15 Gm Bottle) 1 appl TOPICAL BID [facility]; Protocol Last Admin: 06/17/24 11:01 Dose: 1 appl Olanzapine (Olanzapine 2.5 Mg Tablet) 2.5 mg PO DAILY PRN PRN Reason: Anxiety Olanzapine (Olanzapine 2.5 Mg Tablet) 2.5 mg PO BEDTIME [facility] Last Admin: 06/16/24 19:48 Dose: 2.5 mg Omeprazole (Omeprazole 20 Mg Capsule.Dr) 20 mg PO DAILY@0630 [facility] Last Admin: 06/17/24 06:28 Dose: 20 mg Ondansetron HCl (Ondansetron Odt 4 Mg Tab.Rapdis) 4 mg TRANSLINGU Q8H PRN PRN Reason: nausea and vomiting Trazodone HCl (Trazodone Hcl 50 Mg Tablet) 50 mg PO BEDTIME MRX1 PRN PRN Reason: Insomnia Last Admin: 06/16/24 19:46 Dose: 50 mg Allergies Allergies Allergy/AdvReac Type Severity Reaction Status Date / Time Penicillins AdvReac Diarrhea Verified 05/22/24 10:34 Assessment & Plan Assessment & Plan (1) Mood disorder: Status: Acute Code(s): F39 - Unspecified mood [affective] disorder (2) Hypothyroid: Qualifiers: 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 She walked into the emergency room after she overdosed on alprazolam. She has several psychosocial stressors such as unstable housing, limited social support and she is a very poor historian. Plan 1. Gather collateral information. 2. Keep on 15 minute checks since the patient is able to contract for safety. 3. Continue with medical workout. 4. Continue with Zyprexa as per medication reconciliation form. Later on we lowered Zyprexa to 2.5 mg p.o. q.h.s. since she reports over-sedation. 5. We will start a low dose of mirtazapine to target depression 6. We tried to cross taper her from Xanax to Klonopin but she remains anxious with some withdrawal symptoms so we are keeping now back on Xanax 0.5 p.o. t.i.d. 7. Gabapentin 100 mg p.o. t.i.d. to target anxiety, we will will check if she gets over-sedated. On June 13 we are lowering gabapentin 100 mg p.o. b.i.d. since she was over-sedated. 06/16: c/o anxiety in morning, asks to reinstate TID gabapentin 100 mg and decrease morning xanax to 0.25 mg. also change midday gabapentin from 1230 to 1500. add colace 100 QHS. otherwise continue current mgmt. 06/17: pt reports changes have helped with morning anxiety and have not left her feeling sleepy. continue current mgmt. Reason for continued inpatient stay Substantial Risk for: inability to function and rapid decompensation Time Spent With Patient Time: Total time managing care of this patient today __25__ minutes.
[2024-06-17] MEDS: ALPRAZolam 0.5 MG TABLET PO ×2 (14:56→20:16)
[2024-06-17 19:49] VITALS: BP 101/55; PULSE 78; RESP 18; TEMP 36.6; O2SAT 94
[2024-06-17] MEDS: Docusate Sodium 100 MG CAPSULE PO (20:15)
[2024-06-17] MEDS: Mirtazapine 15 MG TABLET PO (20:16)
[2024-06-17] MEDS: OLANZapine 2.5 MG TABLET PO (20:16)
[2024-06-18] MEDS: Levothyroxine Sodium 75 MCG TABLET PO (05:37)
[2024-06-18] MEDS: Omeprazole 20 MG CAPSULE.DR PO (05:37)
[2024-06-18 08:41] VITALS: BP 135/63; PULSE 81; RESP 18; TEMP 36.8; O2SAT 96
[2024-06-18] MEDS: Gabapentin 100 MG CAPSULE PO ×3 (08:44→20:48)
[2024-06-18] MEDS: ALPRAZolam 0.25 MG TABLET PO (08:44)
--- NOTE | 2024-06-18 12:45 | HO.PSYCHPN ---
Subjective Subjective Date of Service: 06/18/24 Reason For Visit: Unspecified Depressive DO Subjective Notes: Conditional Voluntary Interim History: Patient was seen and discussed in rounds today. Records and plans were reviewed. Continues to have some anxiety but mostly regarding her discharge. Eating and sleeping adequately. No changes were made today Review of Systems Review of Systems Yes all other systems are reviewed and are negative Mental Status Exam Mental Status Exam Patient Appearance: Appropriate Patient Orientation: Person and Situation Level of Consciousness: Awake and Appropriate Patient Behavior: Guarded and Passive Mood Description: Withdrawn Affect Description: Constricted Patient Cognition Impaired: Yes Ability to Follow Directions: Good Speech Pattern: Clear Hallucinations: None Delusions: Ideas of Reference Thought Process: Distracted and Slowed Thinking Thought Content: positive for [place] and positive for Poverty of Content Judgement: Fair Diagnostics Vital Signs (24Hr): Vital Signs - 24 hr 06/17/24 19:49 06/18/24 08:41 Temperature 97.8 F 98.2 F Pulse Rate 78 81 Respiratory Rate 18 18 Blood Pressure 101/55 L 135/63 Pulse Oximetry 94 96 Oxygen Delivery Method Room Air Room Air BMI result Body Mass Index 25.1 Labs 06/07/24 14:49 06/07/24 14:49 Medications Medications Current Medications Acetaminophen (Acetaminophen 325 Mg Tablet) 650 mg PO Q6H PRN PRN Reason: Headache/Pain, Scale 1-10 Al Hydroxide/Mg Hydroxide (Magnesium Hydrox/Alum Hydrox 30 Ml Oral.Susp) 30 ml PO Q6H PRN PRN Reason: Heartburn/Nausea Alprazolam (Alprazolam 0.5 Mg Tablet) 0.5 mg PO BID@1500,2100 [facility] Last Admin: 06/17/24 20:16 Dose: 0.5 mg Alprazolam (Alprazolam 0.25 Mg Tablet) 0.25 mg PO DAILY [facility] Last Admin: 06/18/24 08:44 Dose: 0.25 mg Docusate Sodium (Docusate Sodium 100 Mg Capsule) 100 mg PO BEDTIME [facility] Last Admin: 06/17/24 20:15 Dose: 100 mg Gabapentin (Gabapentin 100 Mg Capsule) 100 mg PO TID [facility] Last Admin: 06/18/24 08:44 Dose: 100 mg Hydroxyzine HCl (Hydroxyzine Hcl 25 Mg Tablet) 25 mg PO Q6H PRN PRN Reason: mild anxiety Last Admin: 06/03/24 02:11 Dose: 25 mg Levothyroxine Sodium (Levothyroxine Sodium 75 Mcg Tablet) 75 mcg PO DAILY@0630 [facility] Last Admin: 06/18/24 05:37 Dose: 75 mcg Magnesium Hydroxide (Milk Of Magnesia 30 Ml Oral.Susp) 30 ml PO DAILY PRN PRN Reason: Constipation Last Admin: 06/03/24 02:12 Dose: 30 ml Meclizine HCl (Meclizine Hcl 25 Mg Tablet) 25 mg PO BID PRN PRN Reason: dizziness Last Admin: 06/06/24 12:01 Dose: 25 mg Mirtazapine (Mirtazapine 15 Mg Tablet) 15 mg PO BEDTIME [facility] Last Admin: 06/17/24 20:16 Dose: 15 mg Nystatin (Nystatin Powder 15 Gm Bottle) 1 appl TOPICAL BID [facility]; Protocol Last Admin: 06/17/24 20:18 Dose: 1 appl Olanzapine (Olanzapine 2.5 Mg Tablet) 2.5 mg PO DAILY PRN PRN Reason: Anxiety Olanzapine (Olanzapine 2.5 Mg Tablet) 2.5 mg PO BEDTIME [facility] Last Admin: 06/17/24 20:16 Dose: 2.5 mg Omeprazole (Omeprazole 20 Mg Capsule.Dr) 20 mg PO DAILY@30 [facility] Last Admin: 06/18/24 05:37 Dose: 20 mg Ondansetron HCl (Ondansetron Odt 4 Mg Tab.Rapdis) 4 mg TRANSLINGU Q8H PRN PRN Reason: nausea and vomiting Trazodone HCl (Trazodone Hcl 50 Mg Tablet) 50 mg PO BEDTIME MRX1 PRN PRN Reason: Insomnia Last Admin: 06/16/24 19:46 Dose: 50 mg Allergies Allergies Allergy/AdvReac Type Severity Reaction Status Date / Time Penicillins AdvReac Diarrhea Verified 05/22/24 10:34 Assessment & Plan Assessment & Plan (1) Mood disorder: Status: Acute Code(s): F39 - Unspecified mood [affective] disorder (2) Hypothyroid: Qualifiers: 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 She walked into the emergency room after she overdosed on alprazolam. She has several psychosocial stressors such as unstable housing, limited social support and she is a very poor historian. Plan 1. Gather collateral information. 2. Keep on 15 minute checks since the patient is able to contract for safety. 3. Continue with medical workout. 4. Continue with Zyprexa as per medication reconciliation form. Later on we lowered Zyprexa to 2.5 mg p.o. q.h.s. since she reports over-sedation. 5. We will start a low dose of mirtazapine to target depression 6. We tried to cross taper her from Xanax to Klonopin but she remains anxious with some withdrawal symptoms so we are keeping now back on Xanax 0.5 p.o. t.i.d. 7. Gabapentin 100 mg p.o. t.i.d. to target anxiety, we will will check if she gets over-sedated. On June 13 we are lowering gabapentin 100 mg p.o. b.i.d. since she was over-sedated. 06/16: c/o anxiety in morning, asks to reinstate TID gabapentin 100 mg and decrease morning xanax to 0.25 mg. also change midday gabapentin from 1230 to 1500. add colace 100 QHS. otherwise continue current mgmt. 06/17: pt reports changes have helped with morning anxiety and have not left her feeling sleepy. continue current mgmt. Reason for continued inpatient stay Substantial Risk for: med/psych decompensation Time Spent With Patient Time: Total time managing care of this patient today ____ minutes.
[2024-06-18] MEDS: ALPRAZolam 0.5 MG TABLET PO ×2 (14:53→20:48)
[2024-06-18] MEDS: Nystatin Powder 15 GM BOTTLE 1 APPL TOPICAL ×2 (18:01→20:58)
[2024-06-18 20:00] VITALS: BP 146/77; PULSE 79; TEMP 36.1; O2SAT 97
[2024-06-18] MEDS: OLANZapine 2.5 MG TABLET PO (20:48)
[2024-06-18] MEDS: Mirtazapine 15 MG TABLET PO (20:48)
[2024-06-18] MEDS: Docusate Sodium 100 MG CAPSULE PO (20:48)
[2024-06-19] MEDS: Omeprazole 20 MG CAPSULE.DR PO (05:58)
[2024-06-19] MEDS: Levothyroxine Sodium 75 MCG TABLET PO (05:58)
[2024-06-19 08:00] VITALS: BP 107/58; PULSE 76; RESP 16; TEMP 36.9; O2SAT 95
[2024-06-19] MEDS: Gabapentin 100 MG CAPSULE PO ×3 (09:35→21:17)
[2024-06-19] MEDS: ALPRAZolam 0.25 MG TABLET PO (09:35)
[2024-06-19] MEDS: Nystatin Powder 15 GM BOTTLE 1 APPL TOPICAL ×2 (09:36→21:20)
--- NOTE | 2024-06-19 10:43 | P.PNPSI_ITS ---
Subjective Subjective Date of Service: 06/19/24 Reason For Visit: Unspecified Depressive DO Subjective Notes: Conditional Voluntary Interim History: Patient was seen and discussed in rounds today. Records and plans were reviewed. Still somewhat preoccupied about her discharge. No complaints or side effects. Eating and sleeping adequately. No changes were made today Review of Systems Review of Systems Yes all other systems are reviewed and are negative Mental Status Exam Mental Status Exam Patient Appearance: Appropriate Patient Orientation: Person and Situation Level of Consciousness: Awake and Appropriate Patient Behavior: Guarded and Passive Mood Description: Withdrawn Affect Description: Constricted Patient Cognition Impaired: Yes Ability to Follow Directions: Good Speech Pattern: Clear Hallucinations: None Delusions: Ideas of Reference Thought Process: Distracted and Slowed Thinking Thought Content: positive for [place] and positive for Poverty of Content Judgement: Fair Diagnostics Vital Signs (24Hr): Vital Signs - 24 hr 06/18/24 20:00 06/19/24 08:00 Temperature 97 F 98.4 F Pulse Rate 79 76 Respiratory Rate 16 Blood Pressure 146/77 H 107/58 L Pulse Oximetry 97 95 Oxygen Delivery Method Room Air Room Air BMI result Body Mass Index 25.1 Labs 06/07/24 14:49 06/07/24 14:49 Medications Medications Current Medications Acetaminophen (Acetaminophen 325 Mg Tablet) 650 mg PO Q6H PRN PRN Reason: Headache/Pain, Scale 1-10 Al Hydroxide/Mg Hydroxide (Magnesium Hydrox/Alum Hydrox 30 Ml Oral.Susp) 30 ml PO Q6H PRN PRN Reason: Heartburn/Nausea Alprazolam (Alprazolam 0.5 Mg Tablet) 0.5 mg PO BID@1500,2100 [facility] Last Admin: 06/18/24 20:48 Dose: 0.5 mg Alprazolam (Alprazolam 0.25 Mg Tablet) 0.25 mg PO DAILY [facility] Last Admin: 06/19/24 09:35 Dose: 0.25 mg Docusate Sodium (Docusate Sodium 100 Mg Capsule) 100 mg PO BEDTIME [facility] Last Admin: 06/18/24 20:48 Dose: 100 mg Gabapentin (Gabapentin 100 Mg Capsule) 100 mg PO TID [facility] Last Admin: 06/19/24 09:35 Dose: 100 mg Hydroxyzine HCl (Hydroxyzine Hcl 25 Mg Tablet) 25 mg PO Q6H PRN PRN Reason: mild anxiety Last Admin: 06/03/24 02:11 Dose: 25 mg Levothyroxine Sodium (Levothyroxine Sodium 75 Mcg Tablet) 75 mcg PO DAILY@0630 [facility] Last Admin: 06/19/24 05:58 Dose: 75 mcg Magnesium Hydroxide (Milk Of Magnesia 30 Ml Oral.Susp) 30 ml PO DAILY PRN PRN Reason: Constipation Last Admin: 06/03/24 02:12 Dose: 30 ml Meclizine HCl (Meclizine Hcl 25 Mg Tablet) 25 mg PO BID PRN PRN Reason: dizziness Last Admin: 06/06/24 12:01 Dose: 25 mg Mirtazapine (Mirtazapine 15 Mg Tablet) 15 mg PO BEDTIME [facility] Last Admin: 06/18/24 20:48 Dose: 15 mg Nystatin (Nystatin Powder 15 Gm Bottle) 1 appl TOPICAL BID [facility]; Protocol Last Admin: 06/19/24 09:36 Dose: 1 appl Olanzapine (Olanzapine 2.5 Mg Tablet) 2.5 mg PO DAILY PRN PRN Reason: Anxiety Olanzapine (Olanzapine 2.5 Mg Tablet) 2.5 mg PO BEDTIME [facility] Last Admin: 06/18/24 20:48 Dose: 2.5 mg Omeprazole (Omeprazole 20 Mg Capsule.Dr) 20 mg PO DAILY@629 [facility] Last Admin: 06/19/24 05:58 Dose: 20 mg Ondansetron HCl (Ondansetron Odt 4 Mg Tab.Rapdis) 4 mg TRANSLINGU Q8H PRN PRN Reason: nausea and vomiting Trazodone HCl (Trazodone Hcl 50 Mg Tablet) 50 mg PO BEDTIME MRX1 PRN PRN Reason: Insomnia Last Admin: 06/16/24 19:46 Dose: 50 mg Allergies Allergies Allergy/AdvReac Type Severity Reaction Status Date / Time Penicillins AdvReac Diarrhea Verified 05/22/24 10:34 Assessment & Plan Assessment & Plan (1) Mood disorder: Status: Acute Code(s): F39 - Unspecified mood [affective] disorder (2) Hypothyroid: Qualifiers: 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 She walked into the emergency room after she overdosed on alprazolam. She has several psychosocial stressors such as unstable housing, limited social support and she is a very poor historian. Plan 1. Gather collateral information. 2. Keep on 15 minute checks since the patient is able to contract for safety. 3. Continue with medical workout. 4. Continue with Zyprexa as per medication reconciliation form. Later on we lowered Zyprexa to 2.5 mg p.o. q.h.s. since she reports over-sedation. 5. We will start a low dose of mirtazapine to target depression 6. We tried to cross taper her from Xanax to Klonopin but she remains anxious with some withdrawal symptoms so we are keeping now back on Xanax 0.5 p.o. t.i.d. 7. Gabapentin 100 mg p.o. t.i.d. to target anxiety, we will will check if she gets over-sedated. On June 13 we are lowering gabapentin 100 mg p.o. b.i.d. since she was over-sedated. 06/16: c/o anxiety in morning, asks to reinstate TID gabapentin 100 mg and decrease morning xanax to 0.25 mg. also change midday gabapentin from 1230 to 1500. add colace 100 QHS. otherwise continue current mgmt. 06/17: pt reports changes have helped with morning anxiety and have not left her feeling sleepy. continue current mgmt. 06/19: Continue current regimen and plans Reason for continued inpatient stay Substantial Risk for: stable for discharge and med/psych decompensation Time Spent With Patient Time: Total time managing care of this patient today ____ minutes.
[2024-06-19] MEDS: ALPRAZolam 0.5 MG TABLET PO ×2 (14:10→21:16)
[2024-06-19 20:00] VITALS: BP 140/59; PULSE 74; RESP 18; TEMP 36.1; O2SAT 97
[2024-06-19] MEDS: OLANZapine 2.5 MG TABLET PO (21:16)
[2024-06-19] MEDS: Mirtazapine 15 MG TABLET PO (21:17)
[2024-06-20] MEDS: Levothyroxine Sodium 75 MCG TABLET PO (05:59)
[2024-06-20] MEDS: Omeprazole 20 MG CAPSULE.DR PO (05:59)
[2024-06-20 08:00] VITALS: BP 159/72; PULSE 82; RESP 16; TEMP 37.1; O2SAT 97
[2024-06-20] MEDS: Gabapentin 100 MG CAPSULE PO ×3 (09:18→20:18)
[2024-06-20] MEDS: ALPRAZolam 0.25 MG TABLET PO (09:18)
[2024-06-20] MEDS: ALPRAZolam 0.5 MG TABLET PO ×2 (14:54→20:18)
--- NOTE | 2024-06-20 15:34 | HO.PSYCHPN ---
Subjective Subjective Date of Service: 06/20/24 Reason For Visit: Unspecified Depressive DO Interim History: stable. no change in presentation. anxious re her daughter's driving up from [place] this week to help find her a placement. c/o loose stools. Mental Status Exam Mental Status Exam Patient Appearance: Appropriate Patient Orientation: Person and Situation Level of Consciousness: Awake and Appropriate Patient Behavior: Guarded and Passive Mood Description: Withdrawn Affect Description: Constricted Patient Cognition Impaired: Yes Ability to Follow Directions: Good Speech Pattern: Clear Hallucinations: None Delusions: Ideas of Reference Thought Process: Distracted and Slowed Thinking Thought Content: positive for [place] and positive for Poverty of Content Judgement: Fair Diagnostics Vital Signs (24Hr): Vital Signs - 24 hr 06/19/24 20:00 06/20/24 08:00 Temperature 97 F 98.7 F Pulse Rate 74 82 Respiratory Rate 18 16 Blood Pressure 140/59 H 159/72 H Pulse Oximetry 97 97 Oxygen Delivery Method Room Air Room Air BMI result Body Mass Index 25.1 Labs 06/07/24 14:49 06/07/24 14:49 Medications Medications Current Medications Acetaminophen (Acetaminophen 325 Mg Tablet) 650 mg PO Q6H PRN PRN Reason: Headache/Pain, Scale 1-10 Al Hydroxide/Mg Hydroxide (Magnesium Hydrox/Alum Hydrox 30 Ml Oral.Susp) 30 ml PO Q6H PRN PRN Reason: Heartburn/Nausea Alprazolam (Alprazolam 0.5 Mg Tablet) 0.5 mg PO BID@1500,2100 [facility] Last Admin: 06/20/24 14:54 Dose: 0.5 mg Alprazolam (Alprazolam 0.25 Mg Tablet) 0.25 mg PO DAILY [facility] Last Admin: 06/20/24 09:18 Dose: 0.25 mg Docusate Sodium (Docusate Sodium 100 Mg Capsule) 100 mg PO BEDTIME PRN PRN Reason: constipation Gabapentin (Gabapentin 100 Mg Capsule) 100 mg PO TID [facility] Last Admin: 06/20/24 14:54 Dose: 100 mg Levothyroxine Sodium (Levothyroxine Sodium 75 Mcg Tablet) 75 mcg PO DAILY@0630 [facility] Last Admin: 06/20/24 05:59 Dose: 75 mcg Loperamide HCl (Loperamide Hcl 2 Mg Capsule) 2 mg PO Q6H PRN PRN Reason: Diarrhea Magnesium Hydroxide (Milk Of Magnesia 30 Ml Oral.Susp) 30 ml PO DAILY PRN PRN Reason: Constipation Last Admin: 06/03/24 02:12 Dose: 30 ml Meclizine HCl (Meclizine Hcl 25 Mg Tablet) 25 mg PO BID PRN PRN Reason: dizziness Last Admin: 06/06/24 12:01 Dose: 25 mg Mirtazapine (Mirtazapine 15 Mg Tablet) 15 mg PO BEDTIME [facility] Last Admin: 06/19/24 21:17 Dose: 15 mg Nystatin (Nystatin Powder 15 Gm Bottle) 1 appl TOPICAL BID [facility]; Protocol Last Admin: 06/20/24 09:18 Dose: Not Given Olanzapine (Olanzapine 2.5 Mg Tablet) 2.5 mg PO DAILY PRN PRN Reason: Anxiety Olanzapine (Olanzapine 2.5 Mg Tablet) 2.5 mg PO BEDTIME [facility] Last Admin: 06/19/24 21:16 Dose: 2.5 mg Omeprazole (Omeprazole 20 Mg Capsule.Dr) 20 mg PO DAILY@0630 [facility] Last Admin: 06/20/24 05:59 Dose: 20 mg Ondansetron HCl (Ondansetron Odt 4 Mg Tab.Rapdis) 4 mg TRANSLINGU Q8H PRN PRN Reason: nausea and vomiting Trazodone HCl (Trazodone Hcl 50 Mg Tablet) 50 mg PO BEDTIME MRX1 PRN PRN Reason: Insomnia Last Admin: 06/16/24 19:46 Dose: 50 mg Allergies Allergies Allergy/AdvReac Type Severity Reaction Status Date / Time Penicillins AdvReac Diarrhea Verified 05/22/24 10:34 Assessment & Plan Assessment & Plan (1) Mood disorder: Status: Acute Code(s): F39 - Unspecified mood [affective] disorder (2) Hypothyroid: Qualifiers: 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 She walked into the emergency room after she overdosed on alprazolam. She has several psychosocial stressors such as unstable housing, limited social support and she is a very poor historian. Plan 1. Gather collateral information. 2. Keep on 15 minute checks since the patient is able to contract for safety. 3. Continue with medical workout. 4. Continue with Zyprexa as per medication reconciliation form. Later on we lowered Zyprexa to 2.5 mg p.o. q.h.s. since she reports over-sedation. 5. We will start a low dose of mirtazapine to target depression 6. We tried to cross taper her from Xanax to Klonopin but she remains anxious with some withdrawal symptoms so we are keeping now back on Xanax 0.5 p.o. t.i.d. 7. Gabapentin 100 mg p.o. t.i.d. to target anxiety, we will will check if she gets over-sedated. On June 13 we are lowering gabapentin 100 mg p.o. b.i.d. since she was over-sedated. 06/16: c/o anxiety in morning, asks to reinstate TID gabapentin 100 mg and decrease morning xanax to 0.25 mg. also change midday gabapentin from 1230 to 1500. add colace 100 QHS. otherwise continue current mgmt. 06/17: pt reports changes have helped with morning anxiety and have not left her feeling sleepy. continue current mgmt. 06/19: Continue current regimen and plans 06/20: make colace PRN, add imodium PRN due to c/o loose stools. daughter coming up this week to help her find a placement, pt anxious about the big drive from [place]. continue current mgmt. Reason for continued inpatient stay Substantial Risk for: inability to function and rapid decompensation Time Spent With Patient Time: Total time managing care of this patient today ____ minutes.
[2024-06-20 20:00] VITALS: BP 117/57; PULSE 80; RESP 16; TEMP 36.1; O2SAT 97
[2024-06-20] MEDS: Mirtazapine 15 MG TABLET PO (20:18)
[2024-06-20] MEDS: OLANZapine 2.5 MG TABLET PO (20:18)
[2024-06-21] MEDS: Omeprazole 20 MG CAPSULE.DR PO (05:55)
[2024-06-21] MEDS: Levothyroxine Sodium 75 MCG TABLET PO (05:56)
[2024-06-21 08:00] VITALS: BP 137/63; PULSE 76; RESP 16; TEMP 36.6; O2SAT 96
[2024-06-21] MEDS: ALPRAZolam 0.25 MG TABLET PO (09:03)
[2024-06-21] MEDS: Gabapentin 100 MG CAPSULE PO ×3 (09:03→20:09)
[2024-06-21] MEDS: Nystatin Powder 15 GM BOTTLE 1 APPL TOPICAL ×2 (09:05→20:09)
--- NOTE | 2024-06-21 14:54 | P.PNPSI_ITS ---
Subjective Subjective Date of Service: 06/21/24 Reason For Visit: Unspecified Depressive DO Interim History: stable, awaiting daughter's arrival tomorrow to work on dispo. no complaints or requests. Mental Status Exam Mental Status Exam Patient Appearance: Appropriate Patient Orientation: Person and Situation Level of Consciousness: Awake and Appropriate Patient Behavior: Guarded and Passive Mood Description: Withdrawn Affect Description: Constricted Patient Cognition Impaired: Yes Ability to Follow Directions: Good Speech Pattern: Clear Hallucinations: None Delusions: Ideas of Reference Thought Process: Distracted and Slowed Thinking Thought Content: positive for [place] and positive for Poverty of Content Judgement: Fair Diagnostics Vital Signs (24Hr): Vital Signs - 24 hr 06/20/24 20:00 06/21/24 08:00 Temperature 97 F 97.8 F Pulse Rate 80 76 Respiratory Rate 16 16 Blood Pressure 117/57 L 137/63 Pulse Oximetry 97 96 Oxygen Delivery Method Room Air Room Air BMI result Body Mass Index 25.1 Labs 06/07/24 14:49 06/07/24 14:49 Medications Medications Current Medications Acetaminophen (Acetaminophen 325 Mg Tablet) 650 mg PO Q6H PRN PRN Reason: Headache/Pain, Scale 1-10 Al Hydroxide/Mg Hydroxide (Magnesium Hydrox/Alum Hydrox 30 Ml Oral.Susp) 30 ml PO Q6H PRN PRN Reason: Heartburn/Nausea Alprazolam (Alprazolam 0.5 Mg Tablet) 0.5 mg PO BID@1500,2100 [facility] Last Admin: 06/20/24 20:18 Dose: 0.5 mg Alprazolam (Alprazolam 0.25 Mg Tablet) 0.25 mg PO DAILY [facility] Last Admin: 06/21/24 09:03 Dose: 0.25 mg Docusate Sodium (Docusate Sodium 100 Mg Capsule) 100 mg PO BEDTIME PRN PRN Reason: constipation Gabapentin (Gabapentin 100 Mg Capsule) 100 mg PO TID [facility] Last Admin: 06/21/24 09:03 Dose: 100 mg Levothyroxine Sodium (Levothyroxine Sodium 75 Mcg Tablet) 75 mcg PO DAILY@0630 [facility] Last Admin: 06/21/24 05:56 Dose: 75 mcg Loperamide HCl (Loperamide Hcl 2 Mg Capsule) 2 mg PO Q6H PRN PRN Reason: Diarrhea Magnesium Hydroxide (Milk Of Magnesia 30 Ml Oral.Susp) 30 ml PO DAILY PRN PRN Reason: Constipation Last Admin: 06/03/24 02:12 Dose: 30 ml Meclizine HCl (Meclizine Hcl 25 Mg Tablet) 25 mg PO BID PRN PRN Reason: dizziness Last Admin: 06/06/24 12:01 Dose: 25 mg Mirtazapine (Mirtazapine 15 Mg Tablet) 15 mg PO BEDTIME [facility] Last Admin: 06/20/24 20:18 Dose: 15 mg Nystatin (Nystatin Powder 15 Gm Bottle) 1 appl TOPICAL BID [facility]; Protocol Last Admin: 06/21/24 09:05 Dose: 1 appl Olanzapine (Olanzapine 2.5 Mg Tablet) 2.5 mg PO DAILY PRN PRN Reason: Anxiety Olanzapine (Olanzapine 2.5 Mg Tablet) 2.5 mg PO BEDTIME [facility] Last Admin: 06/20/24 20:18 Dose: 2.5 mg Omeprazole (Omeprazole 20 Mg Capsule.Dr) 20 mg PO DAILY@0630 [facility] Last Admin: 06/21/24 05:55 Dose: 20 mg Ondansetron HCl (Ondansetron Odt 4 Mg Tab.Rapdis) 4 mg TRANSLINGU Q8H PRN PRN Reason: nausea and vomiting Trazodone HCl (Trazodone Hcl 50 Mg Tablet) 50 mg PO BEDTIME MRX1 PRN PRN Reason: Insomnia Last Admin: 06/16/24 19:46 Dose: 50 mg Allergies Allergies Allergy/AdvReac Type Severity Reaction Status Date / Time Penicillins AdvReac Diarrhea Verified 05/22/24 10:34 Assessment & Plan Assessment & Plan (1) Mood disorder: Status: Acute Code(s): F39 - Unspecified mood [affective] disorder (2) Hypothyroid: Qualifiers: 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 She walked into the emergency room after she overdosed on alprazolam. She has several psychosocial stressors such as unstable housing, limited social support and she is a very poor historian. Plan 1. Gather collateral information. 2. Keep on 15 minute checks since the patient is able to contract for safety. 3. Continue with medical workout. 4. Continue with Zyprexa as per medication reconciliation form. Later on we lowered Zyprexa to 2.5 mg p.o. q.h.s. since she reports over-sedation. 5. We will start a low dose of mirtazapine to target depression 6. We tried to cross taper her from Xanax to Klonopin but she remains anxious with some withdrawal symptoms so we are keeping now back on Xanax 0.5 p.o. t.i.d. 7. Gabapentin 100 mg p.o. t.i.d. to target anxiety, we will will check if she gets over-sedated. On June 13 we are lowering gabapentin 100 mg p.o. b.i.d. since she was over-sedated. 06/16: c/o anxiety in morning, asks to reinstate TID gabapentin 100 mg and decrease morning xanax to 0.25 mg. also change midday gabapentin from 1230 to 1500. add colace 100 QHS. otherwise continue current mgmt. 06/17: pt reports changes have helped with morning anxiety and have not left her feeling sleepy. continue current mgmt. 06/19: Continue current regimen and plans 06/20: make colace PRN, add imodium PRN due to c/o loose stools. daughter coming up this week to help her find a placement, pt anxious about the big drive from [place]. continue current mgmt. 06/21: no change in presentation. continue current mgmt. Reason for continued inpatient stay Substantial Risk for: inability to function Time Spent With Patient Time: Total time managing care of this patient today ____ minutes.
[2024-06-21] MEDS: ALPRAZolam 0.5 MG TABLET PO ×2 (15:09→20:09)
[2024-06-21 19:48] VITALS: BP 109/53; PULSE 77; RESP 16; TEMP 36.2; O2SAT 95
[2024-06-21] MEDS: OLANZapine 2.5 MG TABLET PO (20:09)
[2024-06-21] MEDS: Mirtazapine 15 MG TABLET PO (20:09)
[2024-06-22] MEDS: Omeprazole 20 MG CAPSULE.DR PO (06:28)
[2024-06-22] MEDS: Levothyroxine Sodium 75 MCG TABLET PO (06:28)
[2024-06-22 08:47] VITALS: BP 157/69; PULSE 84; RESP 16; TEMP 36.8; O2SAT 97
[2024-06-22] MEDS: Loperamide HCl 2 MG CAPSULE PO (08:51)
[2024-06-22] MEDS: ALPRAZolam 0.25 MG TABLET PO (08:52)
[2024-06-22] MEDS: Gabapentin 100 MG CAPSULE PO ×3 (08:52→21:00)
--- NOTE | 2024-06-22 16:09 | P.PNPSI_ITS ---
Subjective Subjective Date of Service: 06/22/24 Reason For Visit: Unspecified Depressive DO Interim History: calm, cooperative. awaiting dispo. no questions or complaints. per staff, discharging thursday. Mental Status Exam Mental Status Exam Patient Appearance: Appropriate Patient Orientation: Person and Situation Level of Consciousness: Awake and Appropriate Patient Behavior: Guarded and Passive Mood Description: Withdrawn Affect Description: Constricted Patient Cognition Impaired: Yes Ability to Follow Directions: Good Speech Pattern: Clear Hallucinations: None Delusions: Ideas of Reference Thought Process: Distracted and Slowed Thinking Thought Content: positive for [place] and positive for Poverty of Content Judgement: Fair Diagnostics Vital Signs (24Hr): Vital Signs - 24 hr 06/21/24 19:48 06/22/24 08:47 Temperature 97.1 F 98.2 F Pulse Rate 77 84 Respiratory Rate 16 16 Blood Pressure 109/53 L 157/69 H Pulse Oximetry 95 97 Oxygen Delivery Method Room Air Room Air BMI result Body Mass Index 25.1 Labs 06/07/24 14:49 06/07/24 14:49 Medications Medications Current Medications Acetaminophen (Acetaminophen 325 Mg Tablet) 650 mg PO Q6H PRN PRN Reason: Headache/Pain, Scale 1-10 Al Hydroxide/Mg Hydroxide (Magnesium Hydrox/Alum Hydrox 30 Ml Oral.Susp) 30 ml PO Q6H PRN PRN Reason: Heartburn/Nausea Alprazolam (Alprazolam 0.5 Mg Tablet) 0.5 mg PO BID@1500,2100 [facility] Last Admin: 06/21/24 20:09 Dose: 0.5 mg Alprazolam (Alprazolam 0.25 Mg Tablet) 0.25 mg PO DAILY [facility] Last Admin: 06/22/24 08:52 Dose: 0.25 mg Docusate Sodium (Docusate Sodium 100 Mg Capsule) 100 mg PO BEDTIME PRN PRN Reason: constipation Gabapentin (Gabapentin 100 Mg Capsule) 100 mg PO TID [facility] Last Admin: 06/22/24 08:52 Dose: 100 mg Levothyroxine Sodium (Levothyroxine Sodium 75 Mcg Tablet) 75 mcg PO DAILY@0630 [facility] Last Admin: 06/22/24 06:28 Dose: 75 mcg Loperamide HCl (Loperamide Hcl 2 Mg Capsule) 2 mg PO Q6H PRN PRN Reason: Diarrhea Last Admin: 06/22/24 08:51 Dose: 2 mg Magnesium Hydroxide (Milk Of Magnesia 30 Ml Oral.Susp) 30 ml PO DAILY PRN PRN Reason: Constipation Last Admin: 06/03/24 02:12 Dose: 30 ml Meclizine HCl (Meclizine Hcl 25 Mg Tablet) 25 mg PO BID PRN PRN Reason: dizziness Last Admin: 06/06/24 12:01 Dose: 25 mg Mirtazapine (Mirtazapine 15 Mg Tablet) 15 mg PO BEDTIME [facility] Last Admin: 06/21/24 20:09 Dose: 15 mg Nystatin (Nystatin Powder 15 Gm Bottle) 1 appl TOPICAL BID [facility]; Protocol Last Admin: 06/22/24 09:09 Dose: Not Given Olanzapine (Olanzapine 2.5 Mg Tablet) 2.5 mg PO DAILY PRN PRN Reason: Anxiety Olanzapine (Olanzapine 2.5 Mg Tablet) 2.5 mg PO BEDTIME [facility] Last Admin: 06/21/24 20:09 Dose: 2.5 mg Omeprazole (Omeprazole 20 Mg Capsule.Dr) 20 mg PO DAILY@0630 [facility] Last Admin: 06/22/24 06:28 Dose: 20 mg Ondansetron HCl (Ondansetron Odt 4 Mg Tab.Rapdis) 4 mg TRANSLINGU Q8H PRN PRN Reason: nausea and vomiting Trazodone HCl (Trazodone Hcl 50 Mg Tablet) 50 mg PO BEDTIME MRX1 PRN PRN Reason: Insomnia Last Admin: 06/16/24 19:46 Dose: 50 mg Allergies Allergies Allergy/AdvReac Type Severity Reaction Status Date / Time Penicillins AdvReac Diarrhea Verified 05/22/24 10:34 Assessment & Plan Assessment & Plan (1) Mood disorder: Status: Acute Code(s): F39 - Unspecified mood [affective] disorder (2) Hypothyroid: Qualifiers: 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 She walked into the emergency room after she overdosed on alprazolam. She has several psychosocial stressors such as unstable housing, limited social support and she is a very poor historian. Plan 1. Gather collateral information. 2. Keep on 15 minute checks since the patient is able to contract for safety. 3. Continue with medical workout. 4. Continue with Zyprexa as per medication reconciliation form. Later on we lowered Zyprexa to 2.5 mg p.o. q.h.s. since she reports over-sedation. 5. We will start a low dose of mirtazapine to target depression 6. We tried to cross taper her from Xanax to Klonopin but she remains anxious with some withdrawal symptoms so we are keeping now back on Xanax 0.5 p.o. t.i.d. 7. Gabapentin 100 mg p.o. t.i.d. to target anxiety, we will will check if she gets over-sedated. On June 13 we are lowering gabapentin 100 mg p.o. b.i.d. since she was over-sedated. 06/16: c/o anxiety in morning, asks to reinstate TID gabapentin 100 mg and decrease morning xanax to 0.25 mg. also change midday gabapentin from 1230 to 1500. add colace 100 QHS. otherwise continue current mgmt. 06/17: pt reports changes have helped with morning anxiety and have not left her feeling sleepy. continue current mgmt. 06/19: Continue current regimen and plans 06/20: make colace PRN, add imodium PRN due to c/o loose stools. daughter coming up this week to help her find a placement, pt anxious about the big drive from [place]. continue current mgmt. 06/21: no change in presentation. continue current mgmt. 06/22: no change. discharge thursday. meds reviewed, reconciled, prescribed. Reason for continued inpatient stay Substantial Risk for: inability to function Time Spent With Patient Time: Total time managing care of this patient today __25__ minutes.
[2024-06-22] MEDS: ALPRAZolam 0.5 MG TABLET PO ×2 (16:45→21:00)
[2024-06-22 20:00] VITALS: BP 114/54; PULSE 72; RESP 16; TEMP 36.2; O2SAT 94
[2024-06-22] MEDS: OLANZapine 2.5 MG TABLET PO (21:00)
[2024-06-22] MEDS: Mirtazapine 15 MG TABLET PO (21:00)
[2024-06-23] MEDS: Omeprazole 20 MG CAPSULE.DR PO (06:36)
[2024-06-23] MEDS: Levothyroxine Sodium 75 MCG TABLET PO (06:36)
[2024-06-23 07:00] VITALS: BMI 25.5
[2024-06-23 09:02] VITALS: BP 143/68; PULSE 81; RESP 16; TEMP 36.8; O2SAT 95
[2024-06-23] MEDS: ALPRAZolam 0.25 MG TABLET PO (09:04)
[2024-06-23] MEDS: Gabapentin 100 MG CAPSULE PO ×3 (09:04→20:00)
--- NOTE | 2024-06-23 14:51 | P.DS_ITS ---
DS: Providers Provider Date of Service: 06/23/24 Date of admission: 05/31/24 14:57 Date of discharge: 06/24/24 Primary care physician: Nonstaff Physician Consults: 05/31/24 15:27 Consult to Hospitalist Routine Comment: Consulting Provider: [facility] Hospitalists Reason For Exam: OSH admission 06/07/24 10:58 Consult to Hospitalist Routine Comment: Consulting Provider: [facility] Hospitalists Reason For Exam: HTN DS: Diagnosis Discharge Diagnosis (1) Mood disorder: Status: Acute (2) Hypothyroid: Status: Acute DS: Medications Discharge Medications Home Medications: Previous Rx's ?Medication ?Instructions ?Recorded acetaminophen 325 mg tablet 650 mg (2 x 325 mg) PO Q6H PRN 06/22/24 Headache/Pain, Scale 1-10 30 days #240 tabs alprazolam 0.25 mg tablet 0.25 mg PO DAILY 30 days #30 tabs 06/22/24 alprazolam 0.5 mg tablet 0.5 mg PO BID@1500,2100 30 days 06/22/24 #60 tabs gabapentin 100 mg capsule 100 mg PO TID 30 days #90 caps 06/22/24 levothyroxine 75 mcg tablet 75 mcg PO DAILY 30 days #30 tabs 06/22/24 loperamide 2 mg capsule 2 mg PO Q6H PRN Diarrhea 10 days 06/22/24 #10 caps meclizine 25 mg tablet 25 mg PO BID PRN dizziness 30 days 06/22/24 #60 tabs mirtazapine 15 mg tablet 15 mg PO BEDTIME 30 days #30 tabs 06/22/24 nystatin 100,000 unit/gram topical 1 appl topical BID 30 days #30 06/22/24 powder grams olanzapine 2.5 mg tablet 2.5 mg PO BEDTIME 30 days #30 tabs 06/22/24 olanzapine 2.5 mg tablet (Zyprexa) 2.5 mg PO 1XD PRN Anxiety 30 days 06/22/24 #30 tabs omeprazole 20 mg capsule,delayed 20 mg PO DAILY@0630 30 days #30 06/22/24 release caps ondansetron HCl 4 mg tablet 4 mg PO Q8H PRN nausea and 06/22/24 vomiting 30 days #30 tabs Mental Status Exam Mental Status Exam Patient Appearance: Appropriate Patient Orientation: Person and Situation Level of Consciousness: Awake and Appropriate Patient Behavior: Guarded and Passive Mood Description: Withdrawn Affect Description: Constricted Patient Cognition Impaired: Yes Ability to Follow Directions: Good Speech Pattern: Clear Hallucinations: None Delusions: Ideas of Reference Thought Process: Distracted and Slowed Thinking Thought Content: positive for Ladora and positive for Poverty of Content Judgement: Fair DS: Summary Hospital Course Hospital Course: per 06/01 admission note: HPI Subjective Notes: Sims Warning and Conditional Voluntary Narrative: The patient is an 84-year-old female, x3, mother of 3 adult children, unemployed, recently relocated from [place] to [place] in September this last year, with an unclear past psychiatric history. She walked in into the emergency room of [facility] complaining of exacerbation of depression elicited by depressed mood, anhedonia, lack of energy and suicidal thoughts. Apparently she overdosed on a few pills of Xanax. She was assessed by crisis and transferring to this facility for psychiatric stabilization. On the intake interview, the patient was a very poor historian, she reported t hat she moved recently last September from [place] to [place] to her daughter's place but unfortunately her daughter is very sick. She stated that she is concerned about her housing she was in an assisted living facility that she did not like. She also reported that she recently for and she had been receiving psychiatric medications. We review her med reconciliation form and she had been receiving higher doses of Zyprexa that this has been lowered in the last months. She adamantly denies past manic symptoms but, historically, she had a history of impulsive behavior compatible with mood lability. She was able to contract for safety, she was with her granddaughter and we will try to gather more collateral information. Past Psychiatric History: The patient has 2 prior psychiatric history is last admission on June last year that most likely was in [place]. We review her medication reconciliation form and she was on a higher dose of Zyprexa 7.5 mg p.o. q.h.s. in 2023. She also has a chronic history of use of alprazolam. She admitted past history of alcohol use disorder, as per her report not current Medical Evaluation Reviewed: Yes [facility] Medical History Shingles Depression Imbalance Incontinence Thyroid disease Sinusitis Family History: The patient reported that her mother was an alcoholic Social History: She had treat prior marriages and divorces, she has 3 adult children from 2 different partners. Substance History: She reported that she used to abuse alcohol in the past clean and sober as per her report Trauma History: Unclear Precis: The patient is an elderly female with a past history of depression anxiety and prior suicidal attempts, with an unclear mood disorder who recently relocated to [place]. She walked into the emergency room after she overdosed on alprazolam. She has several psychosocial stressors such as unstable housing, limited social support and she is a very poor historian. Continued with Zyprexa as per medication reconciliation form. Later on we lowered Zyprexa to 2.5 mg p.o. q.h.s. since she reports over-sedation. low dose of mirtazapine started to target depression. We tried to cross taper her from Xanax to Klonopin but she remained anxious with some withdrawal symptoms so we put her back on Xanax 0.5 p.o. t.i.d. Gabapentin 100 mg p.o. t.i.d. to target anxiety, we will will check if she gets over-sedated. On June 13 we are lowering gabapentin 100 mg p.o. b.i.d. since she was over-sedated. 06/16: c/o anxiety in morning, asks to reinstate TID gabapentin 100 mg and decrease morning xanax to 0.25 mg. also change midday gabapentin from 1230 to 1500. add colace 100 QHS. otherwise continue current mgmt. 06/17: pt reports changes have helped with morning anxiety and have not left her feeling sleepy. continue current mgmt. 06/19: Continue current regimen and plans 06/20: make colace PRN, add imodium PRN due to c/o loose stools. daughter coming up this week to help her find a placement, pt anxious about the big drive from [place]. continue current mgmt. 06/21: no change in presentation. continue current mgmt. 06/22: no change. discharge thursday. meds reviewed, reconciled, prescribed. 06/23: stable, daughter present, interview with receiving facility occurring. plan to discharge tomorrow. 06/24: stable, safe. discharged as per plan. Time Spent with Patient Time attestation: Total time managing care of this patient today __35__ minutes. Discharge Plan Discharge Patient Disposition: Xfer LTC Discharge Diagnosis: Mood Disorder NOS Hypothyroidism Referrals: Psych Prescriber: Елена Mccall ([facility]) [Other] - 07/07/24 4:00 pm (Telehealth ) SNF Placement: [facility] [Other] - 06/24/24 Therapist: Chely Madrid ([facility]) [Other] - 06/24/24 4:00 pm (Telehealth ) Kaylyn Guillory MD [Physician] - 1 Week (Your providers office has been contacted on your behalf and they will call you directly to set up your follow up appointment. Address: [address] [place] [id number] T: [phone] F: [phone]) Discharge Medications: New acetaminophen 325 mg Tablet 650 mg PO Q6H PRN (Reason: Headache/Pain, Scale 1-10) 30 Days Qty: 240 0RF loperamide 2 mg Capsule 2 mg PO Q6H PRN (Reason: Diarrhea) 10 Days Qty: 10 0RF olanzapine 2.5 mg Tablet 2.5 mg PO BEDTIME 30 Days Qty: 30 0RF alprazolam 0.5 mg Tablet 0.5 mg PO BID@1500,2100 30 Days Qty: 60 0RF alprazolam 0.25 mg Tablet 0.25 mg PO DAILY 30 Days Qty: 30 0RF omeprazole 20 mg Capsule,Delayed Release(Dr/Ec) 20 mg PO DAILY@0630 30 Days Qty: 30 0RF mirtazapine 15 mg Tablet 15 mg PO BEDTIME 30 Days Qty: 30 0RF gabapentin 100 mg Capsule 100 mg PO TID 30 Days Qty: 90 0RF nystatin 100,000 unit/gram Powder 1 appl topical BID 30 Days Qty: 30 0RF Protocol: Apply to: Apply to: under right breast Continued ondansetron HCl 4 mg tablet 4 mg PO Q8H PRN (Reason: nausea and vomiting) 30 Days Qty: 30 0RF olanzapine [Zyprexa] 2.5 mg Tablet 2.5 mg PO 1XD PRN (Reason: Anxiety) 30 Days Qty: 30 0RF levothyroxine 75 mcg tablet 75 mcg PO DAILY 30 Days Qty: 30 3RF meclizine 25 mg tablet 25 mg PO BID PRN (Reason: dizziness) 30 Days Qty: 60 0RF Discontinued alprazolam 0.5 mg tablet 0.5 mg PO TID 30 Days Qty: 90 0RF omeprazole 10 mg capsule,delayed release(DR/EC) 10 mg PO DAILY Qty: 30 0RF olanzapine [Zyprexa] 5 mg Tablet 5 mg PO BEDTIME Patient Comments: Hasn't been picked up since 02/03 Discharge Orders: Discharge Order (Routine); Ordered 06/24/24 Ordered By: Bakari Harrington Diet: Advance to usual diet Activity on Discharge: As tolerated Stand Alone Forms: Patient Portal Discharge page, Community Support Print Language: Mongolian Care Plan Goals: remain safe and stable in the outpatient treatment setting Health Concerns: none Plan of Treatment: take medications as prescribed, attend appointments as scheduled Assessment: not at imminent risk of harm to self or others in a structured and supported living environment Discharge Date/Time: 06/24/24 10:19
[2024-06-23] MEDS: ALPRAZolam 0.5 MG TABLET PO ×2 (15:43→20:01)
[2024-06-23 20:00] VITALS: RESP 16
[2024-06-23] MEDS: OLANZapine 2.5 MG TABLET PO (20:00)
[2024-06-23] MEDS: Mirtazapine 15 MG TABLET PO (20:00)
[2024-06-24] MEDS: Omeprazole 20 MG CAPSULE.DR PO (06:06)
[2024-06-24] MEDS: Levothyroxine Sodium 75 MCG TABLET PO (06:06)
[2024-06-24 08:00] VITALS: BP 152/67; PULSE 88; RESP 18; TEMP 36.5; O2SAT 96
[2024-06-24] MEDS: Nystatin Powder 15 GM BOTTLE 1 APPL TOPICAL (08:05)
[2024-06-24] MEDS: Gabapentin 100 MG CAPSULE PO (08:05)
[2024-06-24] MEDS: ALPRAZolam 0.25 MG TABLET PO (08:05)
--- NOTE | 2024-06-24 10:34 | PC.NURSE ---
Patient alert, aware of her discharge, reported readiness for discharge. D/C instructions given to the patient and her daughter. Patient took her belongings. Left the unit at 10:19 am accompanied by her daughter.
== END 2024-06-24 10:19 | DRG 885 ==
PROVIDERS: Nurse Practitioner Acute Care; Psychiatry & Neurology Psychiatry; Admitting Provider Psychiatry & Neurology Psychiatry; Visit Provider Psychiatry & Neurology Psychiatry
DX: F39 Unspecified mood [affective] disorder (principal); Z59.819 Housing instability, housed unspecified; I10 Essential (primary) hypertension; F41.9 Anxiety disorder, unspecified; E03.9 Hypothyroidism, unspecified; Z60.9 Problem related to social environment, unspecified; Z91.51 Personal history of suicidal behavior; Z79.890 Hormone replacement therapy; Z79.899 Other long term (current) drug therapy
CPT/HCPCS: 36415; 70450; 73070; 73090; 80048; 80061; 82607; 82746; 83036; 83735; 84439; 84443; 85027; 93005

== ENCOUNTER → 2024-05-31 14:57 | Outpatient (BNV) | payer MEDICARE, MEDICAID, SELFPAY | PROVIDERS: Admitting Provider Psychiatry & Neurology Psychiatry; Visit Provider Student in an Organized Health Care Education/Training Program | DX: Z02.2 Encounter for examination for admission to residential institution (principal) | CPT/HCPCS: 99429; 99499 ==

== ENCOUNTER → 2024-05-31 14:57 | Outpatient (BNV) | payer MEDICARE, MEDICAID, SELFPAY | PROVIDERS: Admitting Provider Psychiatry & Neurology Psychiatry; Visit Provider Psychiatry & Neurology Psychiatry | DX: F39 Unspecified mood [affective] disorder (principal); E06.3 Autoimmune thyroiditis | CPT/HCPCS: 99222; 99232 ==

== ENCOUNTER 2024-07-06 11:11 | Outpatient (AMB) | payer MEDICARE, SELFPAY ==
--- NOTE | 2024-07-06 11:14 | A.OFFPC_ITS ---
Vital Signs 07/06/24 11:20 Height 5 ft 1 in Weight 140 lb 4 oz BMI 26.5 BP 124/56 L Blood Pressure Location Rt brachial Position Sitting Respiration 14 Pulse 68 Pulse Source Pulse Oximeter Pulse Oximetry (%) 96 Oxygen Delivery Method Room Air Intake Visit Reasons: HDF Intake Note: Hospital follow up Allergies Penicillins Adverse Reaction (Verified 07/06/24 11:23) Diarrhea Medication List - Last Reconciled 07/06/24 by Ginna Sherman PA-C alprazolam 0.25 mg PO DAILY 30 days alprazolam 0.5 mg PO BID@1500,2100 30 days [fish oil daily] gabapentin 100 mg PO TID 30 days levothyroxine 75 mcg PO DAILY 30 days meclizine 25 mg PO BID PRN 30 days mecobalamin (vitamin B12) PO mirtazapine 15 mg PO BEDTIME 30 days multivitamin 1 tab PO DAILY olanzapine (Zyprexa) 2.5 mg PO 1XD PRN 30 days omeprazole 20 mg PO DAILY@0630 30 days Tobacco use date assessed: 07/06/24 Dental Screening Dental Screen Date: 11/09/23 HPI HDF HPI Details Patient is an 84-year-old female with a significant past medical history of hypothyroidism, anxiety, dizziness and mood disorder presenting today for a hospital follow up. She states she went by ambulance to [place] around 05/27 for a panic attack and states she was held there for a few days until transferred to [facility]. She was recently hospitalized in the [facility] psych unit at [facility] 05/31/24 and discharged 06/24/24. unit for an exacerbation of anxiety and mood disorder. She was discharged with Zyprexa, mirtazapine and alprazolam. She has a psych prescriber at [facility] and is following up tomorrow. She is following with Chely Madrid from [facility] for therapy. She recently started assisted living [facility]. She states that she feels saf e here and that she is hoping it remains a good place for her to live. She is getting a roommate today and this is stressful for her. She has been referred to ENT for the ongoing dizziness. She states since the hospitalization she states it has subsided/improved. She says that she is cancelling all of the cardiac testing because she feels that this was most likely just anxiety induced. Her TSH is stable and she is on levothyroxine 75 mcg daily. [facility] Medical History Shingles Depression Imbalance Incontinence Thyroid disease Sinusitis Family History Mother Thyroid disorder Social History Household Members: Children and Other Household Members Other:: Granddaughter and granddaughter's significant other Housing: House Do you presently have visiting nurse or other home services: No Alcohol intake: current Patient Tobacco Use Status: Never used Tobacco e-Cigarette/Vaping Use: Never Used Second Hand Smoke Exposure: Yes (daughter) Substance Use Type: Prescription Drugs and Sedatives service: No Current occupational status: retired Current occupational exposures/hazards: No Sexual orientation: Straight/Heterosexual Cognitive needs: No Hearing needs: Yes Vision needs: Yes Questionnaire Thrive Questionnaire Date Thrive assessed: 05/17/24 I am a: Patient What is your living situation today?: I have a place to live, but I am worried about losing it in the future Within the past 12 months, did the food you bought not last and you didn't have the money to get more?: Never true Within the past 12 months, did you worry whether your food would run out before you got money to buy more?: Never true Do you have trouble paying for medicines?: No Do you have trouble getting transportation to medical appointments?: Yes Do you have trouble paying your heating and electricity bill?: No Do you have trouble taking care of your child, family member or friend?: Yes Do you have trouble with day-to-day activities such as bathing, preparing meals, shopping, managing finances, etc.?: Yes Are you currently unemployed and looking for a job?: No Are you interested in more education?: No Please select the resources that you would like help with: Transportation Currently or been in a relationship where the following occur: No concerns reported THRIVE Score: 2 VANESSA-7 AMB Questionnaire VANESSA-7 Date VANESSA - 7 assessed: 11/09/23 Source: Developed by Drs. Rajesh Gamble, Fabiola Ramirez, Neville Burnett and colleagues, with an educational jovana from [employer]. Physical exam (Primary Care) Tobacco/Smoking Status: Tobacco use Status Tobacco use date assessed 11/09/23 05/25/24 11:08 Patient Tobacco Use Status Never used Tobacco 06/23/24 14:49 e-Cigarette/Vaping Use Never Used 05/25/24 11:08 Thrive Assessment: Date of Thrive Assessment Date Thrive assessed 05/17/24 06/28/24 09:46 Currently or been in a relationship where the following occur: No concerns reported Const Orientation/consciousness: patient oriented x3 HENMT Ears: hearing grossly normal bilaterally Neck Thyroid: Thyroid normal Lymphatic: no lymphadenopathy noted Resp Auscultation: clear to auscultation bilaterally Cardio Rate: regular rate Rhythm: regular rhythm Heart sounds: S1 normal heart sound present and S2 normal heart sound present Skin General skin exam: no rashes or lesions noted Neuro General: patient oriented x3, gait normal and no focal motor deficits Results Reviewed Results Reviewed: CT head without contrast Comparison: None Findings: No acute intracranial hemorrhage. No midline shift or hydrocephalus. Mild volume loss is generalized. Mild white matter lesions likely small-vessel ischemic disease. No large arterial territorial infarction by CT. Vascular calcifications noted. Imaged paranasal sinuses and imaged mastoid air cells are well aerated. No acute skull fracture. Scalp calcifications are nonspecific. IMPRESSION: No acute intracranial abnormality by CT. 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 Hospitalization from [facility] reviewed. labs and imaging reviewed (2) Mood disorder: Code(s): F39 - Unspecified mood [affective] disorder Category: Medical Plan: feeling signficantly improved (3) Anxiety: Code(s): F41.9 - Anxiety disorder, unspecified Category: Medical Plan: as above seeing psychiatry tomorrow following every other week with therapy (4) Hypothyroid: Code(s): E03.9 - Hypothyroidism, unspecified Category: Medical Qualifiers: Hypothyroidism type: due to Diane's thyroiditis Qualified Code(s): E06.3 - Autoimmune thyroiditis Plan: last tsh wnl (5) Dizziness: Code(s): R42 - Dizziness and giddiness Category: Medical Plan: improved/resolved
[2024-07-06 11:20] VITALS: BP 124/56; PULSE 68; RESP 14; O2SAT 96; BMI 26.5
== END 2024-07-06 11:48 | disposition home or self-care (01) ==
LOC: HO.HMCFM 11:12
PROVIDERS: PCP Physician Assistant; Visit Provider Physician Assistant
DX: E06.3 Autoimmune thyroiditis (principal); F39 Unspecified mood [affective] disorder; F41.9 Anxiety disorder, unspecified; R42 Dizziness and giddiness; Z09 Encounter for follow-up examination after completed treatment for conditions other than malignant neoplasm

== ENCOUNTER → 2024-07-06 11:11 | Outpatient (BNVA) | payer MEDICARE, SELFPAY | PROVIDERS: PCP Physician Assistant; Visit Provider Physician Assistant | DX: Z09 Encounter for follow-up examination after completed treatment for conditions other than malignant neoplasm (principal); F39 Unspecified mood [affective] disorder; F41.9 Anxiety disorder, unspecified; E06.3 Autoimmune thyroiditis; R42 Dizziness and giddiness | CPT/HCPCS: 99212 ==

== ENCOUNTER 2024-10-10 13:47 | Outpatient (AMB) | payer MEDICARE, SELFPAY ==
--- NOTE | 2024-10-10 13:55 | MHC.PC.OV ---
Vital Signs 10/10/24 14:01 BP 114/62 Blood Pressure Location Lt brachial Position Sitting Respiration 14 Pulse 83 Pulse Source Pulse Oximeter Temp 99.0 F Temp Source Temporal Artery Scan Pulse Oximetry (%) 94 Oxygen Delivery Method Room Air Intake Visit Reasons: with PCP (Dr Morelos) for anxiety Intake Note: Follow up anxiety Bobbin Dumper Required: No Allergies Penicillins Adverse Reaction (Verified 10/10/24 13:56) Diarrhea Tobacco use date assessed: 10/10/24 Fall risk assessment: 1 Fall in past year Last assessed Fall Risk: 10/10/24 Dental Screening Dental Screen Date: 10/10/24 Did you have a dental visit in the last 12 months?: No Did you have a dental problem in the last 6 months where you did not have access to dental care?: No Was dental information given to patient?: Patient has dentist HPI HPI Comments History of Present Illness Details The patient is an 83 year old female with a past medical history of hypothyroid, anxiety, insomnia presenting for follow up Hypothyroid: on levothyroxine. TSH normalized on increased levothyroxine dose Anxiety: panic attack in [place]-[facility] psych unit at [facility] 05/31/24 and discharged 06/24/24. unit for an exacerbation of anxiety and mood disorder. She was discharged with Zyprexa, mirtazapine and alprazolam. She has a psych prescriber at [facility] and is following up tomorrow. She is following with Chely Madrid from [facility] for therapy. She sometimes feels that she is tired/overmedicated and has talked to psych about potentially decreasing some of her medications Continues living [facility]. Her medications are administered by nursing/[employer]. She feels everyday omeprazole is given her frequent stools-2-3 BM per day. She reports worsening right hip, knee and leg pain. Denies injury. Not improved by tylenol. Sometimes takes aleve. says she has a sensitive stomach. She was referred previously to rheumatology but at the time was not driving to [place]. She called [facility] but no appts until may. she declines oral prednisone. ENT: Saw ENT for dizziness A ROS see HPI PHYSICAL EXAM: GENERAL: Alert and oriented x 3. NAD EYES: EOMI. Anicteric. HENT: Moist mucous membranes. No scleral icterus. No cervical lymphadenopathy. LUNGS: Clear to auscultation bilaterally. CARDIOVASCULAR: Regular rate and rhythm. No murmur. No JVD. ABDOMEN: Soft, non-tender +bs EXTREMITIES: No edema. Non-tender. SKIN: No rashes or lesions. Warm. NEUROLOGIC: No focal neurological deficits. CN II-XII grossly intact PSYCHIATRIC: Cooperative. Appropriate mood and affect [facility] Medical History Shingles Depression Imbalance Incontinence Thyroid disease Sinusitis Family History Mother Thyroid disorder Social History (Updated 10/10/24 @ 16:38 by Tamika Bustamante CMA) Household Members: Children and Other Household Members Other:: Granddaughter and granddaughter's significant other Housing: House Do you presently have visiting nurse or other home services: No Alcohol intake: current Patient Tobacco Use Status: Never used Tobacco e-Cigarette/Vaping Use: Never Used Second Hand Smoke Exposure: Yes (daughter) Use of substances other than those prescribed or required for medical reasons: No Substance Use Type: Prescription Drugs and Sedatives service: No Current occupational status: retired Current occupational exposures/hazards: No Sexual orientation: Straight/Heterosexual Cognitive needs: No Hearing needs: Yes Vision needs: Yes Questionnaire PHQ-9 Over the last 2 weeks, how often have you been bothered by any of the following problems? 1. Little interest or pleasure in doing things: nearly every day 2. Feeling down, depressed, or hopeless: nearly every day 3. Trouble falling or staying asleep, or sleeping too much: not at all 4. Feeling tired or having little energy: not at all 5. Poor appetite or overeating: not at all 6. Feeling bad about yourself - or that you are a failure or have let yourself or your family down: more than half the days 7. Trouble concentrating on things, such as reading the newspaper or watching television: nearly every day 8. Moving or speaking so slowly that other people could have noticed. Or the opposite - being so fidgety or restless that you have been moving around a lot more than usual: not at all 9. Thoughts that you would be better off or of hurting yourself in some way: more than half the days Total score: 13 Depression Screening Interpretation: Positive Depression Screening Follow-up: Existing condition and Community Mental Health Worker F/U Depression Screening Done: Yes [id number] - PHQ-9 Billing: Yes Source: Developed by Drs. Rajesh Gamble, Fabiola Ramirez, Neville Burnett and colleagues, with an educational jovana from [employer]. Thrive Questionnaire Date Thrive assessed: 05/17/24 I am a: Patient What is your living situation today?: I have a place to live, but I am worried about losing it in the future Within the past 12 months, did the food you bought not last and you didn't have the money to get more?: Never true Within the past 12 months, did you worry whether your food would run out before you got money to buy more?: Never true Do you have trouble paying for medicines?: No Do you have trouble getting transportation to medical appointments?: Yes Do you have trouble paying your heating and electricity bill?: No Do you have trouble taking care of your child, family member or friend?: Yes Do you have trouble with day-to-day activities such as bathing, preparing meals, shopping, managing finances, etc.?: Yes Are you currently unemployed and looking for a job?: No Are you interested in more education?: No Please select the resources that you would like help with: Transportation Currently or been in a relationship where the following occur: No concerns reported THRIVE Score: 2 AUDIT C Alcohol Use Questionnaire (AUDIT-C) 1. How often do you have a drink containing alcohol?: Monthly or less 2. How many drinks containing alcohol do you have on a typical day when you are drinking?: 1 or 2 3. How often do you have six or more drinks on one occasion?: Never Total Score: 1 VANESSA-7 AMB Questionnaire VANESSA-7 Date VANESSA - 7 assessed: 10/10/24 Feeling nervous, anxious, or on edge: 3 = Nearly every day Not being able to stop or control worryin = Nearly every day Worrying too much about different things: 3 = Nearly every day Trouble relaxin = Nearly every day Being so restless that it is hard to sit still: 0 = Not at all Becoming easily annoyed or irritable: 1 = Several days Source: Developed by Fabiola Alvarado Kurt Kroenke and colleagues, with an educational jovana from [employer]. Physical exam (Primary Care) Vital Signs: Last Vital Signs Temp 99.0 F 10/10/24 14:01 Pulse 83 10/10/24 14:01 Resp 14 10/10/24 14:01 BP 114/62 10/10/24 14:01 Pulse Ox 94 10/10/24 14:01 Oxygen Delivery Method Room Air 10/10/24 14:01 Tobacco/Smoking Status: Tobacco use Status Tobacco use date assessed 10/10/24 10/10/24 14:02 Patient Tobacco Use Status Never used Tobacco 10/10/24 13:57 e-Cigarette/Vaping Use Never Used 10/10/24 13:57 PHQ-9: PHQ-9 Score PHQ-9: Total score 13 10/10/24 16:38 Depression Screening Interpretation: Positive Depression Screening Follow-up: Existing condition and Community Mental Health Worker F/U Thrive Assessment: Date of Thrive Assessment Date Thrive assessed 05/17/24 10/10/24 13:57 Currently or been in a relationship where the following occur: No concerns reported Coding Level of Care Code Est Pt Level 4 (59967) Complex EM visit Add On G2211 Diagnoses Polyarthralgia M25.50 Polymyalgia M35.3 Mood disorder 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 Additional Codes PHQ-9 - 34551 - PHQ-9 Billing: Yes ([id number]) Assessment & Plan Assessment & Plan (1) Polyarthralgia: Code(s): M25.50 - Pain in unspecified joint Category: Medical (2) Polymyalgia: Code(s): M35.3 - Polymyalgia rheumatica Category: Medical (3) Mood disorder: Code(s): F39 - Unspecified mood [affective] disorder Category: Medical (4) Hypothyroid: Code(s): E03.9 - Hypothyroidism, unspecified Category: Medical Qualifiers: 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 referral to [facility]. she can continue tylenol. add prn tramadol She can try to decrease omeprazole to q other day. Last TSH wnl. Orders: Referrals Orthopedics Referral M25.551 - Pain in right hip, M25.561 - Pain in right knee Medications: New tramadol 50 mg PO Q8H PRN 21 tabs 0RF pain 7 days Changed From omeprazole 20 mg PO DAILY@0630 30 days 30 caps 5RF To omeprazole 20 mg PO .every other day 15 caps 5RF 30 days
[2024-10-10 14:01] VITALS: BP 114/62; PULSE 83; RESP 14; TEMP 37.2; O2SAT 94
== END 2024-10-10 14:18 | disposition home or self-care (01) ==
LOC: HO.HMCFM 13:47
PROVIDERS: PCP Internal Medicine; Visit Provider Internal Medicine
DX: M25.50 Pain in unspecified joint (principal); M35.3 Polymyalgia rheumatica; F39 Unspecified mood [affective] disorder; E06.3 Autoimmune thyroiditis

== ENCOUNTER → 2024-10-10 13:47 | Outpatient (BNVA) | payer MEDICARE, SELFPAY | PROVIDERS: PCP Internal Medicine; Visit Provider Internal Medicine | DX: F39 Unspecified mood [affective] disorder (principal); M25.50 Pain in unspecified joint; M35.3 Polymyalgia rheumatica; E06.3 Autoimmune thyroiditis | CPT/HCPCS: 96127; 99212 ==

== ENCOUNTER 2025-02-01 09:59 | Emergency (ER) | payer MEDICARE, SELFPAY ==
--- NOTE | 2025-02-01 10:13 | ED_ITS ---
HPI - General Adult General Chief complaint: Fall Stated complaint: failure to thrive Time Seen by Provider: 02/01/25 10:13 Source: patient and EMS Mode of arrival: EMS Limitations: no limitations History of Present Illness ED Provider: Angelita Gaytan PA-C HPI narrative: This is a 84yo female who presents to the ED from her assisted living for failure to thrive. She has a history of frequent falls, polyarthralgia, polymyalgia, hypothyroidism, and mood disorder including anxiety. Patient states she wants to go to the behavioral unit upstairs as she feels safe there and does not feel safe where she came from, specifically that there are too many people there and she has a new roommate but does not like living with other people. She expresses that her anxiety has been uncontrolled as of late which she partially attributes to her xanax that she does not like. She is unable to answer if she consistently takes her medications or not, however expresses that she feels that when she goes to the behavioral unit she gets her medications sorted out and she feels her anxiety is better, but it's different when I have to be in the real world . When asked if she continued taking the medications she was discharged from the behavioral unit with, the patient only endorses continued olanzapine use. However, she may be an unreliable historian. She also reports that she has been working with an outpatient provider on her meds, including mirtazapine and recently being on buspirone for 2 days but stopping taking it because it felt too strong for me, even though they said it was the lowest dose . Additionally, she states that she has to get up multiple times per night to void and this is contributing to her frequent falls. Denies other medical concerns at this time. Related Data Home Medications ?Medication ?Instructions ?Recorded ?Confirmed fish oil .Route 07/06/24 07/06/24 mecobalamin (vitamin B12) PO 07/06/24 07/06/24 multivitamin 1 tab PO DAILY 07/06/2406/12 Previous Rx's ?Medication ?Instructions ?Recorded alprazolam 0.5 mg tablet 0.5 mg PO BID@1500,2100 30 d ays 06/22/24 #60 tabs mirtazapine 15 mg tablet 15 mg PO BEDTIME 30 days #30 tabs 06/22/24 alprazolam 0.25 mg tablet 0.25 mg PO DAILY 30 days #30 tabs 07/11/24 olanzapine 2.5 mg tablet (Zyprexa) 2.5 mg PO 1XD PRN A nxiety 30 days 07/11/24 #30 tabs tramadol 50 mg tablet 50 mg PO Q8H PRN pain 7 days #21 10/10/24 tabs levothyroxine 75 mcg tablet 75 mcg PO DAILY 30 days #3 0 tabs 11/02/24 omeprazole 20 mg capsule,delayed 20 mg PO .every other day 30 days 12/02/24 release #15 caps Allergies Allergy/AdvReac Type Severity Reaction Status Date / Time Penicillins AdvReac Diarrhea Verified 02/01/25 10:16 Review of Systems 2 Constitutional: Constitutional: Reports as per HPI Eyes: Eyes: Reports as per HPI ENT: Reports as per HPI Cardiovascular: Cardiovascular: Reports as per HPI Respiratory: Respiratory: Reports as per HPI Gastrointestinal: Gastrointestinal: Reports as per HPI Genitourinary: Genitourinary: Reports as per HPI Musculoskeletal: Musculoskeletal: Reports as per HPI Integumentary/Breasts: Skin/Breast: Reports as per HPI Neurologic: Reports as per HPI Psychiatric: Psychiatric: Reports as per HPI Endocrine: Endocrine: Reports as per HPI Hematologic/Lymphatic: Hematologic/Lymphatic: Reports as per HPI Allergic/Immunologic: Allergic/Immunologic: Reports as per HPI PMF Past Medical History Attestation statement: The following information was validated with the patient. Source: old records reviewed and nursing notes reviewed Medical History Shingles Depression Imbalance Incontinence Thyroid disease Sinusitis Family History Family History Mother Thyroid disorder Social History Social History Household Members: Children and Other Household Members Other:: Granddaughter and granddaughter's significant other Housing: House Do you presently have visiting nurse or other home services: No Alcohol intake: current Patient Tobacco Use Status: Never used Tobacco Smoked in Last 30 Days: No e-Cigarette/Vaping Use: Never Used Second Hand Smoke Exposure: Yes (daughter) Use of substances other than those prescribed or required for medical reasons: No Substance Use Type: Prescription Drugs and Sedatives Advance Directives: No Advance Directives Information Provided: Yes Do you have a plan to hurt others: No Plan service: No Current occupational status: retired Current occupational exposures/hazards: No Sexual orientation: Straight/Heterosexual Cognitive needs: No Hearing needs: Yes Vision needs: Yes Physical Exam ED Vital Signs: Vital Signs - 24 hr 02/01/25 10:14 02/01/25 12:55 Temperature 97.8 F 97.8 F Pulse Rate 68 64 Respiratory Rate 18 18 Blood Pressure 185/79 H 162/76 H Pulse Oximetry 96 98 Oxygen Delivery Method Room Air Room Air BMI result Body Mass Index 25.5 Const General: alert, awake, anxious and tired appearing Nutritional Appearance: well nourished Orientation/consciousness: patient oriented x3 HENMT Head: Yes normal to inspection and Yes atraumatic Ears: hearing grossly normal bilaterally and external ears normal General nose exam: Normal external nose present, no nasal discharge noted and no epistaxis Face and sinus: Yes normal facial exam, No abrasion and No laceration Mouth: Normal oral and palatal mucosa present, no drooling and no muffled voice Eyes General: appearance normal, both eyes and all related structures Periorbital: periorbital findings normal Eyelids: Yes eyelids normal Conjunctivae: conjunctivae normal Pupils: Equal, round and reactive pupils present EOM: EOMs intact bilaterally Neck Neck: Yes normal visual inspection and Yes full ROM Resp Effort & Inspection: normal respiratory effort and able to speak in complete sentences Neuro General: patient oriented x3 Cranial nerves: Yes Equal, round and reactive pupils present Cognition (Neuro): normal cognition Extrem General: Yes normal to inspection, Yes full ROM and Yes capillary refill normal Psych Appearance: grossly normal Mental Status: mental status grossly normal Affect: normal affect Attitude: cooperative Thought process: Normal thought process present Thought content: Normal thought content present Insight: Good insight present (Psych) Medical Decision Making Medical Decision Making MDM Narrative: Patient is a 84 year old assigned female at with a history of frequent falls, anxiety, polymyalgia, polyarthralgia, and hypothyroidism presenting to the emergency department today with frequent falls and requesting psychiatric admission. Patient's physical exam was as noted in the physical exam portion of this note. Patient's blood work was unremarkable. While attempting to collect a urine sample - it was discovered the patient was retaining urine at 400ml. I am suspicious this is secondary to her polypharmacy / anti-psychotic medication regimen. Patient's urine showed no acute process. Patient's EKG was unremarkable. Patient was evaluated by the CARE team who recommended placing a psychiatric consult. I explained my physical exam findings as well as all test results to the patient. I answered all questions asked by the patient. Psychiatry consult placed. 02/01/2025 1518 Angelita Gaytan PA-C ---> CARE team + psychiatry have agreed patient does not need inpatient level of psychiatric care. Given patient's continued concerns about safety in her assisted living facility, case management consultation placed. 02/01/2025 1555 Angelita Gaytan PA-C ---> Patient evaluated by the case management team and it was determined the patient would return to her assisted living facility. Patient has since been able to urinate after she was straight cathed. Observation care revealed the the patient does not meet medical necessity for hospitalization. Final disposition discussed with the patient. Patient completed observation care at 1555. Differential Diagnosis Differential Diagnoses: The differential diagnosis associated with the presentation includes Anxiety Frequent falls Admission/Observation Consideration of admission/observation: Escalation of care including admission/observation considered Patient would have been admitted to the hospital had her work up had any findings where hospital admission was appropriate and her clinical presentation warranted hospital admission. Consult Healthcare Provider Management of the patient was discussed with: Behavioral Health Provider (spoke with the CARE and psychiatry teams as noted in the MDM Rationale portion of this note. ) Lab Data [facility] Lab Attestation statement: I reviewed the patient's lab results. My interpretation of these results are in the MDM Rationale portion of this note. 02/01/25 11:27 02/01/25 11:27 Labs: Lab Results 02/01/25 02/01/25 Range/Units 11:27 11:57 WBC 6.3 (4.8-10.8) X10*3/uL RBC 4.30 (4.20-5.50) X10*6/uL Hgb 13.4 (12.0-16.0) g/dl Hct 40.2 (37.0-47.0) % MCV 93.5 (80.0-98.0) fL MCH 31.2 (27.0-33.0) pg MCHC 33.3 (31.0-35.0) g/dl RDW 14.2 (11.0-16.0) % Plt Count 343 (160-400) X10*3/uL MPV 9.9 (9.4-12.3) fL Immature Gran % (Auto) 0.2 (0.0-0.4) % Neut % (Auto) 48.5 (45-73) % Lymph % (Auto) 35.5 (20-40) % [place] % (Auto) 13.9 H (2-11) % Eos % (Auto) 1.3 (0-4) % Baso % (Auto) 0.6 (0-2) % Lymph # (Auto) 2.3 (1.2-4.9) X10*3/uL [place] # (Auto) 0.9 (0.1-1.2) X10*3/uL Eos # (Auto) 0.1 (0.0-0.4) X10*3/uL Baso # (Auto) 0.0 (0.0-0.2) X10*3/uL Abs Immat Gran (auto) 0.01 (0.00-0.03) X10*3/uL Absolute Neuts (auto) 3.1 (2.0-8.3) x10*3/uL Absolute Nucleated RBC 0.000 (0.0-0.012) X10*3/uL Nucleated RBC % (auto) 0.0 (0.0-0.2) /100WBC PT 11.0 (10.9-12.4) SEC INR 1.0 (0.9-1.1) Sodium 138 (135-145) mmol/L Potassium 4.3 (3.3-5.1) mmol/L Chloride 108 (96-108) mmol/L Carbon Dioxide 23 (22-29) mmol/L Anion Gap 11 L (12-20) BUN 14 (9-16) mg/dL Creatinine 0.86 (0.5-1.4) mg/dL Estim Creat Clear Calc 42.2 Estimated GFR > 60 Random Glucose 97 (60-115) mg/dL Calcium 9.3 (8.4-10.2) mg/dL Magnesium 2.2 (1.6-2.6) mg/dL Total Bilirubin 0.7 (0.0-1.0) mg/dL AST 21 (5-31) U/L ALT 19 (0-31) U/L Alkaline Phosphatase 91 (39-117) U/L Troponin I High Sens 2.9 (<3.5-17.0) ng/L Total Protein 7.3 (6.5-8.0) g/dL Albumin 4.3 (3.5-5.0) g/dL Urine Color Yellow Urine Appearance Clear Urine pH 7.5 (5.0-9.0) Ur Specific [place] 1.010 (1.005-1.025) Urine Protein Negative (Neg-Trace) mg/dL Urine Glucose (UA) Negative (Negative) mg/dL Urine Ketones Negative (Negative) mg/dL Urine Blood Small (1+) H (Negative) Urine Nitrite Negative (Negative) Ur Leukocyte Esterase Negative (Negative) Urine RBC 0-2 (0-2) /HPF Urine WBC 0-5 (0-5) /HPF Ur Squamous Epith Cells 0-2 (0-2) /HPF Urine Bacteria None Seen (None Seen) Hyaline Casts 0-2 (0-2) /LPF COVID-19 (PATRICIA) Negative (Negative) COVID-19 Clin Com See Note Influenza Type A (JADEN) Negative (Negative) Influenza Type B (JADEN) Negative (Negative) Influenza A & B Note See Note Independent Interpretation I performed an independent interpretation of an: EKG Interpretation: I independently interpreted this EKG and am in agreement with the below findings: Vent. Rate: 66 BPM Atrial Rate: 66 BPM P-R Int: 154 ms QRS Dur: 70 ms QT Int: 378 ms P-R-T Axes: 38 -13 14 degrees QTcB Int: 396 ms Normal sinus rhythm Minimal voltage criteria for LVH, may be normal variant (R in aVL) When compared with ECG of 07-Jun-2024 14:36, No significant change was found Referred By: Angelita Gaytan Electronically Signed By: DICK WILSON MD Dictated By: Dick Wilson MD Signed By: Electronically signed by Dick Wilson MD 02/01/25 1211 Independent Historian Clinical information obtained from an independent historian. History obtained from or confirmed by: EMS (EMS provided additional history and confirmed the history provided by the patient. ) Critical Care Time Critical Care Time Critical Care Time: Yes Total Critical Care Time: 34 Attestation: I spent 34 minutes of Critical Care Time with this patient. This does not include time spent on separately reported billable procedures. Discharge Plan Discharge Clinical Impression: Anxiety, Falls frequently, Urinary retention Patient Disposition: Xfer Other Transfer Details: Back to assisted living facility Instructions: Anxiety (ED) Additional Instructions: You were seen in our Emergency Department today for a concern regarding your mental / behavioral behavioral health. It is important after this visit today that you follow up with either your mental / behavioral health or primary care provider within 7 days (from today).? Return for any worsening symptoms or concerns such as thoughts of harming yourself or others. Please call 911 immediately if you feel your mental health is worsening.? [place] [facility] Lifeline: Available 24 hours a day, 7 days a week, 365 days a year Dial 988 with any telephone to speak to someone immediately [facility] (Mental / Behavioral health therapist: [address] [place] [address] [facility]: [address] [place] [id number] Open from 10am - 12pm (walk ins welcome) [facility] Crisis Services: [address] [place] [address] Walk in hours from 10am - 12pm Behavioral health Network: [address] [place] [id number] [address] [place] [phone] Thursday through Thursday 8am - 8pm Thursday and Thursday 9am - 5pm Your work up today showed no EMERGENT cause for your symptoms. Please be sure to follow up with your psychiatrist to better manage your medications. You had an episode of urinary retention but have been able to urinate since then - this may be due to your psychiatric medicines and important for you to discuss with your providers. IF you are prescribed home medications and/or you are taking over the counter medications at home - it is very important you continue to do so as prescribed / directed unless told otherwise. Follow up with your primary care provider. Return to the emergency department immediately if your symptoms worsen or if you develop any numbness, tingling, dizziness, shortness of breath, difficulty breathing, chest pain, blurry vision, loss of vision, nausea, vomiting, abdominal pain, fever, chills, back pain, or any other complaints. Please see the information below about our Patient Portal. If you are not yet enrolled in the [facility] Patient Portal, you will receive an enrollment email invitation following your visit to any [facility] setting. You may also self-enroll in the Patient Portal by visiting our website: [email or web address] The following information is required to access the Patient Portal: - Your [facility] Medical Record Number - Your personal home email address (must match what is in your electronic medical record, Registration staff can assist with this) - Name - Date of Capabilities of the Patient Portal: - Message some providers - View upcoming appointments - Access your health summary, medical history, and visit history - View current conditions and allergies - View procedure and lab results - View your medications, including guidelines, side effects, and precautions - Complete pre-appointment questionnaires requested by your provider - Ready summary reports of your office visits and procedures To access the Patient Portal Mobile [employer], follow these directions: - Search [employer] in the [employer] Store or [employer] Store - Download the [employer] - Search for [facility] - Enter your login/password Prescriptions: No Action olanzapine [Zyprexa] 2.5 mg tablet 2.5 mg PO 1XD PRN (Reason: Anxiety) 30 Days Qty: 30 5RF alprazolam 0.25 mg tablet 0.25 mg PO DAILY 30 Days Qty: 30 5RF levothyroxine 75 mcg tablet 75 mcg PO DAILY 30 Days Qty: 30 3RF omeprazole 20 mg capsule,delayed release(DR/EC) 20 mg PO .every other day 30 Days Qty: 15 2RF alprazolam 0.5 mg Tablet 0.5 mg PO BID@1500,2100 30 Days Qty: 60 0RF mirtazapine 15 mg Tablet 15 mg PO BEDTIME 30 Days Qty: 30 0RF tramadol 50 mg tablet 50 mg PO Q8H PRN (Reason: pain) 7 Days Qty: 21 0RF fish oil .Route Rx Instructions: daily mecobalamin (vitamin B12) PO multivitamin Tablet 1 tab PO DAILY Referrals: Kaylyn Guillory MD [Primary Care Provider, Endocrinology] Print Language: Lithuanian
[2025-02-01 10:14] VITALS: BP 157/79; BP 185/79; PULSE 68; PULSE 78; RESP 18; TEMP 36.6; O2SAT 96; BMI 25.5
--- NOTE | 2025-02-01 10:21 | ECG_ITS ---
Test Reason : dizziness Blood Pressure : */* mmHG Vent. Rate : 66 BPM Atrial Rate : 66 BPM P-R Int : 154 ms QRS Dur : 70 ms QT Int : 378 ms P-R-T Axes : 38 -13 14 degrees QTcB Int : 396 ms Normal sinus rhythm Minimal voltage criteria for LVH, may be normal variant ( R in aVL ) Borderline ECG When compared with ECG of 07-Jun-2024 14:36, No significant change was found Referred By: Angelita Gaytan Electronically Signed By: NEHA WILSON MD
--- NOTE | 2025-02-01 11:05 | PC.NURSE ---
pt was assisted to bathroom as she stated she needed to urinate, pt then was unable to urinate, bladder scan performed and she had near 400 in her bladder, provider was notified, straight cath was ordered. Pt refusing the straight cath and requested to go back to the bathroom to attempt to urinate again, tech has brought patient back to the bathroom. pt was notified if she was unable to urinate that she would have to be straight cath'd
[2025-02-01 11:39] LABS: MANUAL DIFF FLAG NO
--- NOTE | 2025-02-01 11:39 | MHC.EDTECH ---
pt was walk with assist to bathroom. state she has to urinate but cant go. pt attempted to get up from the bed due for the pt falling a bed alarm/wrist aband/ yellow socks has been applied to patient for safety. RN aware
--- NOTE | 2025-02-01 11:41 | PC.NURSE ---
patient a&ox2, labs drawn, ekg performed, nasal swab obtained, attempted straight cath multiple times, with multiple nurses- cath has coiled each time. provider has been notified. additional nurse to attempt.
[2025-02-01 11:46] LABS: Hematocrit 40.2 % (37.0-47.0); Hemoglobin 13.4 g/dl (12.0-16.0); Imm Gran Abs Auto 0.01 X10*3/uL (0.00-0.03); Imm Gran Pct Auto 0.2 % (0.0-0.4); Lymphocytes Absolute Auto 2.3 X10*3/uL (1.2-4.9); Mean Corpuscular HGB Conc 33.3 g/dl (31.0-35.0); Mean Corpuscular Hemoglobin 31.2 pg (27.0-33.0); Mean Corpuscular Volume 93.5 fL (80.0-98.0); NRBC Abs Auto 0.000 X10*3/uL (0.0-0.012); NRBC Pct Auto 0.0 /100WBC (0.0-0.2); Platelet Count 343 X10*3/uL (160-400); Red Blood Count 4.30 X10*6/uL (4.20-5.50); White Blood Count 6.3 X10*3/uL (4.8-10.8)
[2025-02-01 11:50] LABS: INTERNATIONAL NORM RATIO 1.0 (0.9-1.1); Prothrombin Time 11.0 SEC (10.9-12.4)
[2025-02-01 11:55] LABS: Alanine Aminotransferase 19 U/L (0-31); Albumin Level 4.3 g/dL (3.5-5.0); Alkaline Phosphatase 91 U/L (39-117); Anion Gap 11 (12-20); Aspartate Amino Transferase 21 U/L (5-31); Blood Urea Nitrogen 14 mg/dL (9-16); Calcium 9.3 mg/dL (8.4-10.2); Carbon Dioxide 23 mmol/L (22-29); Chloride 108 mmol/L (96-108); Creatinine Clr Calc Pharmacy 42.2; Estimated Glomerular Filt Rate > 60; Magnesium 2.2 mg/dL (1.6-2.6); Potassium 4.3 mmol/L (3.3-5.1); Sodium 138 mmol/L (135-145); Total Protein 7.3 g/dL (6.5-8.0)
[2025-02-01 12:03] LABS: Troponin-I High Sensitivity 2.9 ng/L (<3.5-17.0)
[2025-02-01 12:09] LABS: COVID-19 Test Negative (Negative); IDNOW Serial# 55D5AD1C; IDNOW Serial# 58CA691E; Influenza B2 Negative (Negative)
[2025-02-01 12:10] LABS: Appearance Urine Clear; Glucose Urine UA Negative (Negative); PH 7.5 (5.0-9.0); Specific Gravity - Urine 1.010 (1.005-1.025); UMIC TRIGGER UACC YES
[2025-02-01 12:55] VITALS: BP 162/76; PULSE 64; RESP 18; TEMP 36.6; O2SAT 98
--- NOTE | 2025-02-01 15:46 | P.CNPS_ITS ---
History of Present Illness Date of Service: 02/01/2025 Chief Complaint: failure to thrive Reason for Consult: Anxiety and psychiatric medication evaluation Requesting physician: Angelita Gaytan Discussed with referring provider: Yes Sources of Information: patient interviewed and chart reviewed HPI Narrative: Patient found sitting in his stretcher in her room in the ED. She states that she lives in an assisted living facility, but I feel like I don't belong there. . She reports history of severe anxiety. She admits to taking her medications as prescribed. She states that she was recently prescribed low- dose of buspirone twice daily -she took the medication for 2 days and experienced dizziness and GI discomfort; consequently, she stop the medication and those symptoms resolved. She notes that her anxiety has been uncontrolled despite trial of 30 different medications. She also feels depressed. She denies SI/HI/AVH. She states that she is followed by outpatient psychiatry. Past Psychiatric History: The patient has 2 prior psychiatric history is last admission on June last year that most likely was in [place]. We review her medication reconciliation form and she was on a higher dose of Zyprexa 7.5 mg p.o. q.h.s. in 2023. She also has a chronic history of use of alprazolam. She admitted past history of alcohol use disorder, as per her report not current Medical Evaluation Reviewed: Yes [facility] Medical History Shingles Depression Imbalance Incontinence Thyroid disease Sinusitis Family History: The patient reported that her mother was an alcoholic Social History: She had treat prior marriages and divorces, she has 3 adult children from 2 different partners. Trauma History: Unclear Diagnostics Vital Signs (24Hr): Vital Signs - 24 hr 02/01/25 10:14 02/01/25 12:55 Temperature 97.8 F 97.8 F Pulse Rate 68 64 Respiratory Rate 18 18 Blood Pressure 185/79 H 162/76 H Pulse Oximetry 96 98 Oxygen Delivery Method Room Air Room Air BMI result Body Mass Index 25.5 Labs 02/01/25 11:27 02/01/25 11:27 Labs: Laboratory Results - last 48 hr 02/01/25 02/01/25 11:27 11:57 WBC 6.3 RBC 4.30 Hgb 13.4 Hct 40.2 MCV 93.5 MCH 31.2 MCHC 33.3 RDW 14.2 Plt Count 343 MPV 9.9 Immature Gran % (Auto) 0.2 Neut % (Auto) 48.5 Lymph % (Auto) 35.5 [place] % (Auto) 13.9 H Eos % (Auto) 1.3 Baso % (Auto) 0.6 Lymph # (Auto) 2.3 [place] # (Auto) 0.9 Eos # (Auto) 0.1 Baso # (Auto) 0.0 Abs Immat Gran (auto) 0.01 Absolute Neuts (auto) 3.1 Absolute Nucleated RBC 0.000 Nucleated RBC % (auto) 0.0 PT 11.0 INR 1.0 Sodium 138 Potassium 4.3 Chloride 108 Carbon Dioxide 23 Anion Gap 11 L BUN 14 Creatinine 0.86 Estim Creat Clear Calc 42.2 Estimated GFR > 60 Random Glucose 97 Calcium 9.3 Magnesium 2.2 Total Bilirubin 0.7 AST 21 ALT 19 Alkaline Phosphatase 91 Troponin I High Sens 2.9 Total Protein 7.3 Albumin 4.3 Urine Color Yellow Urine Appearance Clear Urine pH 7.5 Ur Specific [place] 1.010 Urine Protein Negative Urine Glucose (UA) Negative Urine Ketones Negative Urine Blood Small (1+) H Urine Nitrite Negative Ur Leukocyte Esterase Negative Urine RBC 0-2 Urine WBC 0-5 Ur Squamous Epith Cells 0-2 Urine Bacteria None Seen Hyaline Casts 0-2 COVID-19 (PATRICIA) Negative COVID-19 Clin Com See Note Influenza Type A (JADEN) Negative Influenza Type B (JADEN) Negative Influenza A & B Note See Note Mental Status Exam Mental Status Exam Narrative: Appearance: Casually dressed, adequate hygiene, unkempt hair Behavior: Anxious, cooperative throughout the interview. Eye contact is appropriate, and there are no signs of psychomotor agitation or retardation Speech: Normal volume and prosody Thought process: Logical and goal-directed Thought content: Future oriented no self-harming thoughts Mood: Anxious Affect: Mood-congruent SI:denies HI:denies VH/AH:none Delusions: None Insight/judgment: Fair insight and judgment Memory/cog: Alert, oriented x 4. grossly intact to conversational testing Medications Allergies Allergies Allergy/AdvReac Type Severity Reaction Status Date / Time Penicillins AdvReac Diarrhea Verified 02/01/25 10:16 Assessment & Plan Assessment & Plan (1) Anxiety: Status: Acute Code(s): F41.9 - Anxiety disorder, unspecified Plan HPI: Patient presents with severe anxiety which is chronic. She experienced dizziness and GI discomfort after 2 days of taking low-dose of buspirone that was recently prescribed; those symptoms completely resolved after she stopped taking the medication. She continues to experience anxiety. Her anxiety symptoms have been refractory to 30 different medications. She denies SI/HI/AVH. Plan: Patient is in no acute distress at this time. Patient is not in imminent risk of harm to self or others.? Patient has been observed closely by nursing and unit staff throughout admission; patient has not engaged in any behaviors that suggest dangerousness to self or others and has demonstrated appropriate behaviors and impulse control. She does not meet the criteria for psychiatric inpatient admission at this time. Continue current treatment regimen. Recommendation: Follow-up with outpatient psychiatry for medication adjustment and treatment of chronic anxiety. Total time managing care of this patient today ____ minutes. Patient educated on: diagnosis, medication risk/benefits and therapeutic strategies
--- NOTE | 2025-02-01 17:08 | MHC.CM.ED ---
CARE team cleared patient. Psych consult recommends OP followup. CM did speak with Cat at [facility]. Aware that [facility] Pt and daughter aware. [facility] accepted patient for nursing and PT. Pt is highly anxious. CM spoke at length with patient regarding need to take medications to reduce her anxiety. Pt given dinner. Awaiting transport at 6:30 via BLS [place]. Provider and RN aware. Med nec to global clinical leader. F2F uploaded.
--- NOTE | 2025-02-01 18:10 | PC.NURSE ---
nurse to nurse per rn case manager Sharona, she spoke with nurse at the assisted living and gave them a report of what occurred. they are aware the patient is returning back to them.
[2025-02-01 19:15] VITALS: BP 168/78; PULSE 68; RESP 18; TEMP 36.2; O2SAT 98
== END 2025-02-01 19:15 | disposition other institution (70) ==
PROVIDERS: Physician Assistant Medical; Emergency Provider Emergency Medicine; PCP Internal Medicine
DX: F41.9 Anxiety disorder, unspecified (principal); R33.9 Retention of urine, unspecified; R62.7 Adult failure to thrive; R26.81 Unsteadiness on feet; Z68.25 Body mass index [BMI] 25.0-25.9, adult; Z51.81 Encounter for therapeutic drug level monitoring; Z79.899 Other long term (current) drug therapy; Z91.81 History of falling; Z11.52 Encounter for screening for COVID-19
CPT/HCPCS: 36415; 80053; 81001; 83735; 84484; 85025; 85610; 87502; 87635; 93005; 97162; 99285; S9485

== ENCOUNTER → 2025-02-01 10:21 | Outpatient (BNV) | payer MEDICARE, SELFPAY | PROVIDERS: Emergency Provider Emergency Medicine; PCP Internal Medicine; Visit Provider Internal Medicine Cardiovascular Disease | DX: R42 Dizziness and giddiness (principal) | CPT/HCPCS: 93010 ==

== ENCOUNTER → 2025-02-01 10:28 | Outpatient (BNV) | payer MEDICARE, SELFPAY | PROVIDERS: Emergency Provider Emergency Medicine; PCP Internal Medicine; Visit Provider Nurse Practitioner Family | DX: F41.9 Anxiety disorder, unspecified (principal) | CPT/HCPCS: 99283 ==

== ENCOUNTER 2025-02-03 10:24 | Outpatient (AMB) | payer MEDICARE, SELFPAY ==
--- NOTE | 2025-02-03 10:41 | MHC.PC.OV ---
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 Accompanied by: Self / Same As Patient Allergies Penicillins Adverse Reaction (Verified 02/03/25 10:42) Diarrhea Medication List - Last Reconciled 02/03/25 by Jeanine Erickson, [facility] alprazolam 0.5 mg PO BID@1500,2100 30 days alprazolam 0.25 mg PO DAILY 30 days [fish oil daily] levothyroxine 75 mcg PO DAILY 30 days mecobalamin (vitamin B12) PO meloxicam 15 mg PO DAILY mirtazapine 30 mg PO BEDTIME multivitamin 1 tab PO DAILY olanzapine (Zyprexa) 2.5 mg PO 1XD PRN 30 days olanzapine 5 mg PO BEDTIME omeprazole 20 mg PO .every other day 30 days Tobacco use date assessed: 10/10/24 Fall risk assessment: 2 + Falls in past year Last assessed Fall Risk: 02/03/25 Dental Screening Dental Screen Date: 10/10/24 HPI HPI Comments History of Present Illness Details History of Present Illness 83 year old female with a past medical history of hypothyroid, anxiety, insomni The patient is an 84-year-old female presenting with recent falls & ED fu visit [place] [facility] [place]. Note reviewed. Recent falls: - Multiple falls recently. - Tailbone hit but healed. - c/o dizziness r/t past ear surgery R ear . - Falls at night going to the bathroom, up several times to urinate. Takes most of her meds at [facility]. She thinks this contributes to her falls She has a lifeline. She is in Asst Living Uses a cane She was DC home with [facility] to include PT/OT Reports services has not started yet Unsure which agency was consulted Urinary retention: - Urinary retention noted. - Catheterization required in ER. - She is voiding normally since this time. - She wonder if meloxicam is causing this; would like to take prn for her R hip pain rather than QD Due for flu shot, willing to get done today. [facility] Medical History Shingles Depression Imbalance Incontinence Thyroid disease Sinusitis Family History Mother Thyroid disorder Social History Household Members: Children and Other Household Members Other:: Granddaughter and granddaughter's significant other Housing: House Do you presently have visiting nurse or other home services: No Alcohol intake: current Patient Tobacco Use Status: Never used Tobacco e-Cigarette/Vaping Use: Never Used Second Hand Smoke Exposure: Yes (daughter) Substance Use Type: Prescription Drugs and Sedatives service: No Current occupational status: retired Current occupational exposures/hazards: No Sexual orientation: Straight/Heterosexual Cognitive needs: No Hearing needs: Yes Vision needs: Yes Questionnaire Thrive Questionnaire Date Thrive assessed: 05/17/24 I am a: Patient What is your living situation today?: I have a place to live, but I am worried about losing it in the future Within the past 12 months, did the food you bought not last and you didn't have the money to get more?: Never true Within the past 12 months, did you worry whether your food would run out before you got money to buy more?: Never true Do you have trouble paying for medicines?: No Do you have trouble getting transportation to medical appointments?: Yes Do you have trouble paying your heating and electricity bill?: No Do you have trouble taking care of your child, family member or friend?: Yes Do you have trouble with day-to-day activities such as bathing, preparing meals, shopping, managing finances, etc.?: Yes Are you currently unemployed and looking for a job?: No Are you interested in more education?: No Please select the resources that you would like help with: Transportation Currently or been in a relationship where the following occur: No concerns reported THRIVE Score: 2 VANESSA-7 AMB Questionnaire VANESSA-7 Date VANESSA - 7 assessed: 10/10/24 Source: Developed by Drs. Rajesh Gamble, Fabiola Ramirez, Neville Burnett and colleagues, with an educational jovana from [employer]. Review of Systems Narrative Review of Systems - Neurological: Denies dizziness; reports falls. - Genitourinary: Reports urinary retention. - Musculoskeletal: Reports chronic hip pain. - Psychiatric: Reports anxiety, taking medication. Physical exam (Primary Care) Vital Signs: Last Vital Signs Temp 97.2 F 02/03/25 10:42 Pulse 78 02/03/25 10:42 BP 140/72 H 02/03/25 10:42 Pulse Ox 95 02/03/25 10:42 BMI result Body Mass Index 27.6 Tobacco/Smoking Status: Tobacco use Status Tobacco use date assessed 10/10/24 02/03/25 10:48 Patient Tobacco Use Status Never used Tobacco 02/03/25 10:48 e-Cigarette/Vaping Use Never Used 02/03/25 10:48 Thrive Assessment: Date of Thrive Assessment Date Thrive assessed 05/17/24 02/03/25 10:48 Currently or been in a relationship where the following occur: No concerns reported Narrative Physical Exam General: Well developed, well nourished, in no acute distress. Appears stated age. Head: Normocephalic, atraumatic. Eyes: Pupils are equal, round and reactive to light and accommodation. Conjunctivae are clear Lungs: Clear to auscultation bilaterally. No rales, rhonchi or wheeze noted. Good air flow in all kinsey. Heart: Regular rate and rhythm. No murmurs, click, rubs or gallops are noted. Abdomen: Bowel sounds present in all quadrants. The abdomen is soft, nontender, with no masses or organomegaly noted. Pulses: Peripheral pulses are equal and palpable bilaterally. Extremities: No clubbing, cyanosis nor edema is noted. Psych: Mood and affect appropriate. Reports taking medication for anxiety. Results 02/01/25 ED labs reviewed. Coding Level of Care Code Est Pt Level 4 (56597) Complex EM visit Add On G2211 Diagnoses Hospital discharge follow-up Z09 Influenza vaccination administered at current visit Z23 Frequent falls R29.6 Dizziness R42 Urinary frequency R35.0 Assessment & Plan Assessment & Plan (1) Hospital discharge follow-up: Code(s): Z09 - Encounter for follow-up examination after completed treatment for conditions other than malignant neoplasm (2) Influenza vaccination administered at current visit: Onset Date: ~02/03/25 Code(s): Z23 - Encounter for immunization Category: Medical (3) Frequent falls: Code(s): R29.6 - Repeated falls Category: Medical (4) Dizziness: Code(s): R42 - Dizziness and giddiness Category: Medical (5) Urinary frequency: Code(s): R35.0 - Frequency of micturition Category: Medical Plan Discussion Notes I discussed with the patient the recent falls, likely related to both urinary urgency at night and potential balance issues from her historical ear surgery. We reviewed the use of meloxicam for hip pain and its potential impact on urinary retention. I recommended altering the meloxicam to an as-needed basis to monitor changes in urinary symptoms. Enablex was introduced to alleviate urinary concerns, with a review planned in her follow-up visit. Additional plans include physical therapy for improved safety and functional strength. Coordination with home care services for therapy was highlighted. The upcoming appointment with Dr. Guillory for continued evaluation was affirmed, and logistics for transportation were discussed. The patient consented to receive a flu shot after confirmation of insurance coverage. Patient was given time to ask questions. All questions were answered to their satisfaction. Assessment and Plan 1. Recent falls - physical therapy. - Coordinate with home care. - Will have nurse reach out to [facility] to ensure services will start 2. Urinary retention - Adjust meloxicam to as-needed. - Initiate Enablex. Recommend close fu with PCP in about 4 weeks to assess further. Sooner PRN 3. Flu shot admin today. Patient Instructions - Take meloxicam as needed instead of daily. - Start new medication, Enablex, for urinary symptoms. - Follow up with home care services for physical therapy. - Watch for any changes in balance or falls and report them. - Attend follow-up appointment with Dr. Guillory in about 4 weeks. Consent Patient was informed and verbally consented to the use of an ambient scribe for clinic note documentation during this visit. Total time spent caring for the patient today was 30 minutes. This includes time spent before the visit reviewing the chart, time spent during the visit, and time spent after the visit on documentation, reviewing laboratory results, diagnostic imaging, medications, performing a medically necessary evaluation, counseling on diagnoses, care coordination, ordering appropriate tests, ordering appropriate medications, review of tests performed by other providers, reporting test results with the patient, communication with other healthcare providers. Medications: New meloxicam 15 mg PO DAILY PRN darifenacin ER 7.5 mg PO DAILY 30 tabs 1RF Patient Instructions: - Take meloxicam as needed instead of daily. - Start new medication, Enablex, for urinary symptoms. - Follow up with home care services for physical therapy. - Watch for any changes in balance or falls and report them. - Attend follow-up appointment with Dr. Guillory in about 4 weeks.
[2025-02-03 10:42] VITALS: BP 140/72; PULSE 78; TEMP 36.2; O2SAT 95; BMI 27.6
== END 2025-02-03 11:30 | disposition home or self-care (01) ==
LOC: HO.HMCFM 10:25
PROVIDERS: PCP Internal Medicine; Visit Provider Nurse Practitioner Family
DX: Z09 Encounter for follow-up examination after completed treatment for conditions other than malignant neoplasm (principal); Z23 Encounter for immunization; R29.6 Repeated falls; R42 Dizziness and giddiness; R35.0 Frequency of micturition

== ENCOUNTER → 2025-02-03 10:24 | Outpatient (BNVA) | payer MEDICARE, SELFPAY | PROVIDERS: PCP Internal Medicine; Visit Provider Nurse Practitioner Family | DX: R42 Dizziness and giddiness (principal); R29.6 Repeated falls; E03.9 Hypothyroidism, unspecified; F41.9 Anxiety disorder, unspecified; R33.9 Retention of urine, unspecified; R35.0 Frequency of micturition; Z23 Encounter for immunization; Z09 Encounter for follow-up examination after completed treatment for conditions other than malignant neoplasm | CPT/HCPCS: 90471; 90656; 99212 ==